=== PATIENT | male | born 2005 | race Caucasian/White ===

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

== ENCOUNTER 2025-05-12 10:06 | Emergency (ER) | payer BC, SELFPAY ==
[2025-05-12 10:07] VITALS: BP 113/87; PULSE 85; RESP 16; TEMP 35.7; O2SAT 100; BMI 22.2
--- NOTE | 2025-05-12 10:35 | RAD_ITS ---
EXAM: XR Chest, 2 Views CLINICAL INDICATION: COUGH TECHNIQUE: Frontal and lateral views of the chest. COMPARISON: No relevant prior studies available. FINDINGS: LUNGS AND PLEURAL SPACES: Unremarkable. No consolidation. No pneumothorax. HEART: Unremarkable. No cardiomegaly. MEDIASTINUM: Unremarkable. Normal mediastinal contour. BONES/JOINTS: Unremarkable. No acute fracture. RAD/Chest PA and Lateral IMPRESSION: No acute cardiopulmonary process. Reading Location: [facility]
--- NOTE | 2025-05-12 10:35 | RAD_ITS ---
EXAM: XR Chest, 2 Views CLINICAL INDICATION: COUGH TECHNIQUE: Frontal and lateral views of the chest. COMPARISON: No relevant prior studies available. FINDINGS: LUNGS AND PLEURAL SPACES: Unremarkable. No consolidation. No pneumothorax. HEART: Unremarkable. No cardiomegaly. MEDIASTINUM: Unremarkable. Normal mediastinal contour. BONES/JOINTS: Unremarkable. No acute fracture. RAD/Chest PA and Lateral IMPRESSION: No acute cardiopulmonary process. Reading Location: [facility]
--- NOTE | 2025-05-12 10:37 | ED.VIS.DYS ---
HPI History of Present Illness Chief Complaint: Cold Sx Narrative Narrative: Chief complaint and HPI: Cold-like symptoms. 19-year-old male with past medical history of asthma presents for evaluation of cold-like symptoms. Patient states over the past several days he has had a cough, runny nose, sore throat, body aches. States that he has been feeling some chest tightness that he gets with his asthma. States he has been using his albuterol inhaler however ran out of his albuterol for his nebulizers. Denies any fever, abdominal pain, nausea, vomiting. Has continued to use his maintenance inhaler. Review of systems: See HPI Medications: As listed on the chart Allergies: As listed on the chart PFSH: Per chart Vital signs: As listed on the chart. Reviewed. Physical exam: Gen: A&O x3, NAD Head: Normocephalic, atraumatic Eyes: No sclera icterus, conjunctiva clear, PERRL, EOMI ENT: TMs clear BL, moist mucous membranes, posterior oropharynx unremarkable, uvula midline, tonsils not enlarged, no tonsillar exudates Neck: Trachea midline, No JVD, Full ROM, No meningismus CV: RRR, no murmurs, no peripheral edema Resp: Lungs CTA BL, mild expiratory wheezing GI: Abd soft, non-distended, non-tender, no r/r/g Musc: Full ROM, no deformity Skin: Warm, dry, no rash Neuro: Alert, oriented, grossly intact, sensation intact Psych: Cooperative, appropriate mood and affect [facility] Medical History Asthma Home Medications ?Medication ?Instructions ?Recorded ?Last Taken ?Type albuterol sulfate 90 mcg/actuation 1 - 2 puff inhalation Q4H PRN PRN 01/07/20 Unknown History aerosol inhaler Wheezing albuterol sulfate 2.5 mg/3 mL 2.5 mg inhalation Q6H 10/03/21 Unknown History (0.083 %) solution for nebulization budesonide 0.25 mg/2 mL suspension 0.25 mg inhalation BID 10/03/21 Unknown History for nebulization (Pulmicort) cetirizine 10 mg tablet (Zyrtec) 10 mg PO DAILY 10/03/21 Unknown History Allergy/AdvReac Type Severity Reaction Status Date / Time No Known Allergies Allergy Verified 05/12/25 10:09 Surgical History History of tonsillectomy Social History Smoking Status: Current every day smoker tobacco type: e-cigarettes substance use type: does not use EXAM Physical Exam Const Vital Signs: 05/12/25 10:07 05/12/25 10:44 05/12/25 10:53 Temperature 96.3 F L Temperature Source Temporal Pulse Rate 85 74 Respiratory Rate 16 16 Respiratory Effort Normal Non-Labored Respiratory Pattern Normal Normal Blood Pressure 113/87 H Blood Pressure Mean 95 Pulse Ox 100 Oxygen Delivery Method Room Air MDM MDM MDM Narrative Medical decision making narrative: 19-year-old male with past medical history of asthma presents for evaluation of cold-like symptoms. Patient states over the past several days he has had a cough, runny nose, sore throat, body aches. States that he has been feeling some chest tightness that he gets with his asthma. States he has been using his albuterol inhaler however ran out of his albuterol for his nebulizers. Differential diagnosis includes but is not limited to viral illness, pneumonia, asthma exacerbation. On presentation, patient in no acute distress. Vitals are stable. Not hypoxic. I do not think any laboratory workup is needed at this time. Will order chest x-ray to assess for pneumonia. Albuterol and DuoNeb ordered with prednisone for symptoms. Chest x-ray was personally viewed interpreted by me, ED physician. No pneumonia, effusion, cardiomegaly, pneumothorax. Radiology in agreement. On reevaluation, patient's wheezing has improved. Patient symptoms are likely secondary to viral etiology and mild asthma exacerbation. Patient stable to discharge home. Will place on a prednisone course as well as prescribed albuterol nebulizers. Follow-up with PCP. He confirmed understand the plan. Return precautions explained. Impression: 1. Viral illness 2. Mild asthma exacerbation Radiography Diagnostic Testing: Clinical Impression(s) from Imaging Studies Chest X-Ray 05/12/25 10:35 IMPRESSION: No acute cardiopulmonary process. Reading Location: [facility] Discharge Plan Triage Chief Complaint: Cold Sx ED Provider: Johan Acevedo Dx/Rx/DC Orders Prescriptions: No Action albuterol sulfate 1 PUFF inhaler 1 - 2 puff inhalation Q4H PRN PRN (Reason: Wheezing) albuterol sulfate [Ventolin] 2.5 mg /3 mL (0.083 %) Solution For Nebulization 2.5 mg INHALATION Q6H cetirizine [Zyrtec] 10 mg Tablet 10 mg PO DAILY budesonide [Pulmicort] 0.25 mg/2 mL Suspension For Nebulization 0.25 mg INHALATION BID Primary Care Provider: Pooja Ding Referrals: Pooja Ding MD [Primary Care Provider] - Print Language: Macedonian
[2025-05-12] MEDS: Albuterol 2.5 MG/3 ML VIAL.NEB. INHALATION (10:48)
[2025-05-12 10:53] VITALS: PULSE 74; RESP 16
[2025-05-12 11:54] VITALS: BP 130/83; PULSE 89; RESP 20; TEMP 36.6; O2SAT 100
== END 2025-05-12 11:54 | disposition home or self-care (01) ==
PROVIDERS: Emergency Provider Surgery; PCP Pediatrics; Visit Provider Surgery
DX: J45.901 Unspecified asthma with (acute) exacerbation (principal); B34.9 Viral infection, unspecified; F17.290 Nicotine dependence, other tobacco product, uncomplicated; Z11.52 Encounter for screening for COVID-19; Z79.51 Long term (current) use of inhaled steroids; Z79.899 Other long term (current) drug therapy
CPT/HCPCS: 71046; 94640; 99282

== ENCOUNTER 2025-05-23 20:45 | Emergency (ER) | payer BC, SELFPAY ==
[2025-05-23 20:46] VITALS: BP 128/69; PULSE 125; RESP 16; TEMP 36.1; O2SAT 97; BMI 22.7
--- NOTE | 2025-05-23 21:19 | CT_ITS ---
PROCEDURE: SPINE CERVICAL WITHOUT CONTRAS 05/23/2025 REASON FOR EXAM: FALL TECHNIQUE: SPINE CERVICAL WITHOUT CONTRAS Coronal and Sagittal reconstruction series were provided. One or more dose reduction techniques were used (e.g., Automated exposure control, adjustment of the mA and/or kV according to patient size, use of iterative reconstruction technique. FINDINGS: Normal vertebral body height. Normal odontoid process. No compression deformity. No subluxation. No destructive osseous change. No facet malalignment. Pedicles and lamina maintained. CT/Spine Cervical without Contras IMPRESSION: CT cervical spine within normal limits Reading [facility]
--- NOTE | 2025-05-23 21:19 | CT_ITS ---
PROCEDURE: SINUS/FACIAL BONE 05/23/2025 REASON FOR EXAM: HIT FACE ON TREE, LEFT EYE SWELLING TECHNIQUE: SINUS/FACIAL BONE Coronal and Sagittal reconstruction series were provided. One or more dose reduction techniques were used (e.g., Automated exposure control, adjustment of the mA and/or kV according to patient size, use of iterative reconstruction technique). RADIATION DOSE SUMMARY: CTDlvol: 91 mGy DLP: 1901 mGycm FINDINGS: Normal mandible. Normal mandibular condyles. Normal nasal bones. Normal zygomatic arches. Medial and lateral orbital neri maintained. No sinonasal air-fluid levels. No mandibular or maxillary fracture. Orbital rim maintained. Orbital floor intact. Mild sphenoid and maxillary mucosal thickening. Right-sided mandibular molar dental disease. No orbital injury is noted. CT/Sinus/Facial Bone IMPRESSION: Negative for maxillofacial fracture. Specific attention to the left orbit. Reading Location[facility]
--- NOTE | 2025-05-23 21:19 | CT_ITS ---
PROCEDURE: BRAIN/HEAD WITHOUT CONTRAST 05/23/2025 REASON FOR EXAM: HIT HEAD TECHNIQUE: BRAIN/HEAD WITHOUT CONTRAST Coronal and Sagittal reconstruction series were provided. One or more dose reduction techniques were used (e.g., Automated exposure control, adjustment of the mA and/or kV according to patient size, use of iterative reconstruction technique. COMPARISON: 08/12/2018 FINDINGS: No intracranial mass, hemorrhage or edema. Sinuses are clear. Bony calvarium intact. CT/Brain/Head without Contrast IMPRESSION: No acute abnormality Reading Location: [facility]
--- NOTE | 2025-05-23 21:20 | EX.ED.DYSGE1 ---
HPI History of Present Illness Chief Complaint: Fall Narrative Narrative: Patient is 19-year-old male past medical history asthma who presented to the emergency department chief complaint of left-sided face pain. Patient states that earlier today around 3:30 in the afternoon he was in a tree when he slipped and fell and hit another portion of the tree on the way down and hit his left side of his face. He states that he does have a headache he tried take Tylenol and notes that he does have some swelling to the left eyebrow region. Patient notes that he has not vomited since the event. Patient states that his last tetanus shot was updated approximately 2 years ago. [facility] Medical History Asthma Home Medications ?Medication ?Instructions ?Recorded ?Last Taken ?Type albuterol sulfate 2.5 mg/3 mL 2.5 mg inhalation Q6H 10/03/21 Unknown History (0.083 %) solution for nebulization budesonide 0.25 mg/2 mL suspension 0.25 mg inhalation BID 10/03/21 Unknown History for nebulization (Pulmicort) cetirizine 10 mg tablet (Zyrtec) 10 mg PO DAILY 10/03/21 Unknown History albuterol sulfate 2.5 mg/3 mL 2.5 mg (3 mL) inhalation Q4H PRN 05/12/25 Unknown Rx (0.083 %) solution for nebulization #25 vials Allergy/AdvReac Type Severity Reaction Status Date / Time No Known Allergies Allergy Verified 05/23/25 20:46 Surgical History History of tonsillectomy Social History Smoking Status: Current every day smoker tobacco type: e-cigarettes substance use type: does not use ROS ROS ED ROS Narrative Constitutional: Complaint headache as noted above denies any lightheadedness or dizziness Eyes: Denies double vision Cardiovascular: Denies chest pain Respiratory: Denies shortness of breath Abdomen: Denies abdominal pain nausea vomit diarrhea : Denies any urinary symptoms Neurological: Denies any numbness, wheeze, tingling Musculoskeletal: States that he does have some right hip pain from hitting it as well but states that he has been able to walk without any difficulty Skin: Denies any rashes or lesions complains of some swelling to the left eye region EXAM Physical Exam Narrative Exam Narrative: General: Patient was lying in bed resting comfortably did not appear to be acute distress Head: Atraumatic, normocephalic Eyes, ears, nose, throat: PERRL bilaterally, EOMI bilateral, no conjunctival injection noted, no raccoon eyes no Torrez sign no nasal septal hematomas noted bilaterally Neck: Soft, supple, trachea midline no tenderness palpation midline cervical spine Cardiovascular: Patient tachycardic with a regular rhythm no murmurs gallops rubs noted Respiratory: Clear to auscultation bilaterally Abdomen: Soft, nondistended, nontender to palpation Musculoskeletal: All bony prominences palpated joints taken through full range of motion no pain elicited Extremities: +5/5 strength noted in the bilateral upper and lower extremities radial pulses +2/4 in the bilateral extremities, no pedal edema exam Neurological: Patient follow commands knew that he was at [facility] year is 2024 Skin: warm, dry, intact, patient has a superficial abrasion noted laterally to his left eyebrow with mild swelling Const Vital Signs: 05/23/25 20:46 05/23/25 21:15 Temperature 97.0 F L Temperature Source Temporal Pulse Rate 125 H Respiratory Rate 16 Respiratory Effort Normal Respiratory Depth Normal Respiratory Pattern Normal Blood Pressure 128/69 H Blood Pressure Mean 88 Pulse Ox 97 Oxygen Delivery Method Room Air Room Air MDM MDM MDM Narrative Medical decision making narrative: Patient is a 19-year-old male who presents to the emergency department with a chief complaint of falling out of a tree hitting his head on the tree with a headache. On the differential diagnosis includes but not limited to epidural hematoma, subdural hematoma,, musculoskeletal strain, facial fracture. Once workup is obtained reviewed he will be reevaluated. Patient CT head and brain without contrast showed no acute intracranial mass hemorrhage or edema. Patient CT cervical spine reviewed showed no acute fracture listhesis. Patient's CT face showed no maxillofacial fracture. On reevaluation patient is feeling better he like to go home at this point time. Patient was vies rotate Tylenol and ibuprofen [id number]. He is encouraged to follow-up with his doctor in outpatient setting return with worsening symptoms or any concerns. He is agreeable to plan all questions turns answered is discharged home in stable condition. Radiography Diagnostic Testing: Clinical Impression(s) from Imaging Studies Brain CT 05/23/25 21:19 IMPRESSION: No acute abnormality Reading Location[facility] Cervical Spine CT 05/23/25 21:19 IMPRESSION: CT cervical spine within normal limits Reading Location[facility] Facial/Sinus 05/23/25 21:19 IMPRESSION: Negative for maxillofacial fracture. Specific attention to the left orbit. Reading Location: [facility] Discharge Plan Triage Chief Complaint: Fall ED Provider: Aidan De La Rosa Dx/Rx/DC Orders Clinical Impression: Fall, Closed head injury, Eye swelling, left Prescriptions: No Action albuterol sulfate [Ventolin] 2.5 mg /3 mL (0.083 %) Solution For Nebulization 2.5 mg INHALATION Q6H cetirizine [Zyrtec] 10 mg Tablet 10 mg PO DAILY budesonide [Pulmicort] 0.25 mg/2 mL Suspension For Nebulization 0.25 mg INHALATION BID albuterol sulfate 2.5 mg /3 mL (0.083 %) solution for nebulization 2.5 mg inhalation Q4H PRN Qty: 25 0RF Rx Instructions: Use q4 hours and PRN for wheezing Primary Care Provider: Pooja Ding Referrals: Pooja Ding MD [Primary Care Provider] - Activity Restrictions/Additional Instructions: Your CT scans did not show any acute findings. Rotate Tylenol and ibuprofen [id number] when you do this you can take something every 3 hours. Max dose of Tylenol in 24 hours 4000 mg, max dose of ibuprofen 3200 mg in 24 hours. Print Language: Polish Disposition Disposition: Home, Self Care
--- OUTSIDE RECORDS SUMMARY | 2025-05-23 21:58 | XMS RPT_ITS | CCD ---
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 abscess is less likely for the following reason(s): laboratory studies not suggestive Disposition The patient was discharged. OTC Medications were advised: Tylenol/Motrin Procedures Allergies As of Date: 05/09/2025 Noted Allergy Reaction SEASONAL ALLERGIES 08/08/2012 14 - Other: See Comments Comments: Dust mites trees (December, January and February) grasses (February and March) SMOKE 07/11/2012 9 - Itching Date Reviewed: 05/09/2025 Reviewed by: Meredith Cobb LPN - Fully Assessed Reason for Visit: Sore Throat [200] Cmt: ST, cough and bodyaches x 3 days Primar (more content not included)... Normal [facility] STREP A MOLECULAR (POC)on Procedural Control Valid [facility] Strep A (POCT) Negative Negative [facility] Basic metabolic 2000 panelon 02-12-2025 Anion gap [Moles/Vol] 13 mmol/L Normal 8-[address] [facility] Comment on above: Order Comment: Speci men Type: BLOOD SPECIMENOrdering Facility: [facility] Address: [address] [place] [address] Performed By: #### L LATOSHA, 10859-9 ####[facility] [id number] [place] [address] [place] Calcium [Mass/Vol] 9.4 mg/dL Normal 8.5-10.2 [facility] Comment on above: Order Comment: Speci men Type: BLOOD SPECIMENOrdering Facility: [facility] Address: [address] [place] [address] Performed By: #### L LATOSHA, 26116-6 ####[facility] [id number] [place] [address] [place] Chloride [Moles/Vol] 102 mmol/L Normal 98-107 [facility] Comment on above: Order Comment: Speci men Type: BLOOD SPECIMENOrdering Facility: [facility] Address: [address] [place] [address] Performed By: #### L IPNF, 37434-4 ####[facility] [id number] [place] [address] [place] CO2 [Moles/Vol] 24 mmol/L Normal 22-[address] [facility] Comment on above: Order Comment: Speci men Type: BLOOD SPECIMENOrdering Facility: [facility] Address: [address] [place] [address] Performed By: #### L IPNF, 10257-8 ####[facility] LABIA [id number] [place] [id number] [place] Creatinine [Mass/Vol] 1.00 mg/dL Normal 0.73-1.[address] [facility] Comment on above: Order Comment: Speci men Type: BLOOD SPECIMENOrdering Facility: [facility] Address: [address] [place] [address] Performed By: #### L IPNF, 89399-2 ####[facility] LABIA [id number] [place] [address] [place] Creatinine and Glomerular filtration rate.predicted panel (S/P/Bld) 110 mL/min/1.73m??? Normal >=[address] [facility] Comment on above: Order Comment: Romy rosado Type: BLOOD SPECIMENOrdering Facility: [facility] Address: [address] [place] [address] Result Comment: Melony mated Glomerular Filtration Rate (eGFR) is calculated using the 2020 CKD-EPI creatinine equation. This equation utilizes serum creatinine, sex, and age as parameters. The creatinine assay has traceable calibration to isotope dilution-mass spectrometry. Refer to KDIGO guidelines for clinical interpretation. In patients with unstable renal function, e.g. those with acute kidney injury, the eGFR may not accurately reflect actual GFR. Performed By: #### L IPNF, 62122-7 ####[facility] LABIA [id number] [place] [id number] [place] Glucose [Mass/Vol] 88 mg/dL Normal 74-99 [facility] Comment on above: Order Comment: Hugoi men Type: BLOOD SPECIMENOrdering Facility: [facility] Address: [address] [place] [address] Result Comment: The [place] Diabetes Association (ADA) provides guidance for cutoff values for fasting glucose and random glucose. The ADA defines fasting as no caloric intake for at least 8 hours. Fasting plasma glucose results between 100 to 125 mg/dL indicate increased risk for diabetes (prediabetes). Fasting plasma glucose results greater than or equal to 126 mg/dL meet the criteria for diagnosis of diabetes. In the absence of unequivocal hyperglycemia, results should be confirmed by repeat testing. In a patient with classic symptoms of hyperglycemia or hyperglycemic crisis, random plasma glucose results greater than or equal to 200 mg/dL meet the criteria for diagnosis of diabetes. Reference: Standards of Medical Care in Diabetes 2016, [place] Diabetes Association. Diabetes Care. 2016.39(Suppl 1). Performed By: #### L IPNF, 93479-0 ####[facility]CLIA [id number] [place] [address] [place] Potassium [Moles/Vol] 4.5 mmol/L Normal 3.7-5.[address] [facility] Comment on above: Order Comment: Romy rosado Type: BLOOD SPECIMENOrdering Facility: [facility] Address: [address] [place] [address] Performed By: #### L IPNF, 91603-6 ####[facility]CLIA [id number] [place] [address] [place] Sodium [Moles/Vol] 139 mmol/L Normal 136-144 [facility] Comment on above: Order Comment: Romy rosado Type: BLOOD SPECIMENOrdering Facility: [facility] Address: [address] [place] [address] Performed By: #### L IPNF, 52092-5 ####[facility]CLIA [id number] [place] [address] [place] Urea nitrogen [Mass/Vol] 20 mg/dL Normal 9-[address] [facility] Comment on above: Order Comment: Romy rosado Type: BLOOD SPECIMENOrdering Facility: [facility] Address: [address] [place] [address] Performed By: #### L IPNF, 89306-3 ####[facility]CLIA [id number] [place] [id number] [place] CBC W Auto Differential pane l (Bld)on 02-12-2025 Basophils (Bld) [#/Vol] 0.05 10*3/uL Normal <0.[address] [facility] Comment on above: Order Comment: Speci men Type: BLOOD SPECIMEN [facility] Address: [address] [place] [address] Performed By: #### 5 7021-8 #### [facility] CLIA [id number] [address] [place] [address] [place] Basophils/100 WBC (Bld) 0.8 % Normal [facility] Comment on above: Order Comment: Speci men Type: BLOOD SPECIMEN [facility] Address: [address] [place] [address] Performed By: #### 5 7021-8 #### [facility] CLIA [id number] [address] [place] [address] [place] Differential cell count method Nom (Bld) Auto Normal [facility] Comment on above: Order Comment: Speci men Type: BLOOD SPECIMEN [facility] Address: [address] [place] [address] Performed By: #### 5 7021-8 #### [facility] CLIA [id number] [address] [place] [address] [place] Eosinophils (Bld) [#/Vol] 0.37 10*3/uL Normal <0.[address] [facility] Comment on above: Order Comment: Speci men Type: BLOOD SPECIMEN [facility] Address: [address] [place] [address] Performed By: #### 5 7021-8 #### [facility] CLIA [id number] [address] [place] [address] [place] Eosinophils/100 WBC (Bld) 5.6 % Normal [facility] Comment on above: Order Comment: Speci men Type: BLOOD SPECIMEN [facility] Address: [address] [place], [place] [address] Performed By: #### 5 7021-8 #### [facility] CLIA [id number] [address] [place] [address] [place] Erythrocyte distribution width (RBC) [Ratio] 12.7 % Normal 11.5-15.[address] [facility] Comment on above: Order Comment: Speci men Type: BLOOD SPECIMEN [facility] Address: [address] [place] [address] Performed By: #### 5 7021-8 #### [facility] CLIA [id number] [address] [place] [address] [place] Hematocrit (Bld) [Volume fraction] 44.1 % Normal 39.0-51.[address] [facility] Comment on above: Order Comment: Speci men Type: BLOOD SPECIMEN [facility] Address: [address] [place] [address] Performed By: #### 5 7021-8 #### [facility] CLIA [id number] [address] [place] [address] [place] Hemoglobin (Bld) [Mass/Vol] 14.6 g/dL Normal 13.0-17.[address] [facility] Comment on above: Order Comment: Speci men Type: BLOOD SPECIMEN [facility] Address: [address] [place] [address] Performed By: #### 5 7021-8 #### [facility] CLIA [id number] [address] [place] [address] [place] Immature granulocytes (Bld) [#/Vol] 10*3/uL Normal <0.[address] [facility] Comment on above: Order Comment: Speci men Type: BLOOD SPECIMEN [facility] Address: [address] [place] [address] Performed By: #### 5 7021-8 #### [facility] CLIA [id number] [address] [place] [address] [place] Immature granulocytes/100 WBC (Bld) 0.2 % Normal [facility] Comment on above: Order Comment: Speci men Type: BLOOD SPECIMEN [facility] Address: [address] [place] [address] Performed By: #### 5 7021-8 #### [facility] CLIA [id number] [address] [place] [address] [place] Lymphocytes (Bld) [#/Vol] 1.40 10*3/uL Normal 1.00-4.[address] [facility] Comment on above: Order Comment: Speci men Type: BLOOD SPECIMEN [facility] Address: [address] [place] [address] Performed By: #### 5 7021-8 #### [facility] CLIA [id number] [address] [place] [address] [place] Lymphocytes/100 WBC (Bld) 21.1 % Normal [facility] Comment on above: Order Comment: Speci men Type: BLOOD SPECIMEN [facility] Address: [address] [place] [address] Performed By: #### 5 7021-8 #### [facility] CLIA [id number] [address] [place] [address] [place] MCH (RBC) [Entitic mass] 29.0 pg Normal 26.0-34.[address] [facility] Comment on above: Order Comment: Speci men Type: BLOOD SPECIMEN [facility] Address: [address] [place] [address] Performed By: #### 5 7021-8 #### [facility] CLIA [id number] [address] [place] [address] [place] MCHC (RBC) [Mass/Vol] 33.1 g/dL Normal 30.5-36.[address] [facility] Comment on above: Order Comment: Speci men Type: BLOOD SPECIMEN [facility] Address: [address] [place] [address] Performed By: #### 5 7021-8 #### [facility] CLIA [id number] [address] [place] [address] [place] MCV (RBC) [Entitic vol] 87.5 fL Normal 80.0-100.[address] [facility] Comment on above: Order Comment: Speci men Type: BLOOD SPECIMEN [facility] Address: [address] [place] [address] Performed By: #### 5 7021-8 #### [facility] CLIA [id number] [address] [place] [address] [place] Monocytes (Bld) [#/Vol] 0.84 10*3/uL Normal <0.[address] [facility] Comment on above: Order Comment: Speci men Type: BLOOD SPECIMEN [facility] Address: [address] [place] [address] Performed By: #### 5 7021-8 #### [facility] CLIA [id number] [address] [place] [address] [place] Monocytes/100 WBC (Bld) 12.7 % Normal [facility] Comment on above: Order Comment: Speci men Type: BLOOD SPECIMEN [facility] Address: [address] [place] [address] Performed By: #### 5 7021-8 #### [facility] CLIA [id number] [address] [place] [address] [place] Neutrophils (Bld) [#/Vol] 3.97 10*3/uL Normal 1.45-7.[address] [facility] Comment on above: Order Comment: Speci men Type: BLOOD SPECIMEN [facility] Address: [address] [place] [address] Performed By: #### 5 7021-8 #### [facility] CLIA [id number] [address] [place] [address] [place] Neutrophils/100 WBC (Bld) 59.6 % Normal [facility] Comment on above: Order Comment: Speci men Type: BLOOD SPECIMEN [facility] Address: [address] [place] [address] Performed By: #### 5 7021-8 #### [facility] CLIA [id number] [address] [place] [address] [place] Nucleated RBC (Bld) [#/Vol] 10*3/uL Normal <0.[address] [facility] Comment on above: Order Comment: Speci men Type: BLOOD SPECIMEN [facility] Address: [address] [place] [address] Performed By: #### 5 7021-8 #### [facility] CLIA [id number] [address] [place] [address] [place] Nucleated RBC/100 WBC (Bld) [Ratio] 0.0 /100 WBC Normal [facility] Comment on above: Order Comment: Speci men Type: BLOOD SPECIMEN [facility] Address: [address] [place] [address] Performed By: #### 5 7021-8 #### [facility] CLIA [id number] [address] [place] [address] [place] Platelet mean volume (Bld) [Entitic vol] 10.4 fL Normal 9.0-12.[address] [facility] Comment on above: Order Comment: Speci men Type: BLOOD SPECIMEN [facility] Address: [address] [place] [address] Performed By: #### 5 7021-8 #### [facility] CLIA [id number] [address] [place] [address] [place] Platelets (Bld) [#/Vol] 238 10*3/uL Normal 150-[address] [facility] Comment on above: Order Comment: Speci men Type: BLOOD SPECIMEN [facility] Address: [address] [place] [address] Performed By: #### 5 7021-8 #### [facility] CLIA [id number] [address] [place] [address] [place] RBC (Bld) [#/Vol] 5.04 10*6/uL Normal 4.20-6.00 [facility] Comment on above: Order Comment: Speci men Type: BLOOD SPECIMEN [facility] Address: [address] [place] [address] Performed By: #### 5 7021-8 #### [facility] CLIA [id number] [address] [place] [address] [place] WBC (Bld) [#/Vol] 6.64 10*3/uL Normal 3.70-11.00 [facility] Comment on above: Order Comment: Speci men Type: BLOOD SPECIMEN [facility] Address: [address] [place] [address] Performed By: #### 5 7021-8 #### [facility] CLIA [id number] [address] [place] [address] [place] CNOVon 02-12-2025 CNOV Office Visit (FAMPWS ) -------- EUGENE SALVADOR ([id number]) 3 M Date Time Provider Department 02/12/25 7:00 AM DORI BLACK During your visit today, we recorded the following information about you: Temperature Pulse Respiration Blood pressure 97.7 degrees 88/minute 16/minute 96/66 Weight Height 68.5 kg 1.735 m Dori Black PA-C 02/12/2025 7:47 AM Signed Chief Complaint Patient presents with: Yearly Exam HPI Eugene Salvador is a 19 year old male who presents here today for physical. Patient with hx of asthma, allergies, depression-in remission, and those as below. Asthma: - Uses albuterol inhaler 3-4 times/week; effective in relieving wheezing. - Out of albuterol inhaler currently. - Previously used Flovent inhaler daily but discontinued due to perceived lack of efficacy. reports he was not using it consistently - Experiences wheezing with physical activity; unable to be active without inhaler. - No significant cough or dyspnea. - vapes nicotine and uses nicotine pouches. Depression: - History of depression related to family issues; previously on medication. - Reports resolution of depression symptoms. Past medical history, appointments, medications, allergies reviewed. Previous Medical History PAST MEDICAL HISTORY Diagnosis Date Asthma Multiple allergies dog saliva, cat dander, pine, smoke, scented candles Previous Surgical History PAST SURGICAL HISTORY Procedure Laterality Date KNEE SURGERY HX Left 06/2024 Family History FAMILY HISTORY Problem Relation Age of Onset Cancer Other Maternal side Hypertension Other Maternal side Cancer Other Paternal side Patient Allergies ALLERGIES Allergen Reactions Seasonal Allergies Other: See Comments Dust mites trees (December, January and February) grasses (February and March) Smoke Itching Current Medications Current Outpatient Medications on File Prior to Visit Medication Sig multivitamin tablet Take 1 tablet by mouth once daily. No current facility-administered medications on file prior to visit. Social History Social History Tobacco Use Smoking status: Never Passive exposure: Yes Smokeless tobacco: Never Tobacco comments: mom smokes outside Uses nicotine pouches (tobacco free) Vaping Use Vaping status: Some Days Substances: Nicotine Substance Use Topics Alcohol use: Not Currently Drug use: Never Review of Symptoms REVIEW OF SYSTEMS GENERAL: No weight loss, malaise or fevers HEENT: No changes in hearing or vision, no nose bleeds or other nasal problems NECK: Negative for lumps, goiter, pain and significant neck swelling RESPIRATORY: See HPI CARDIOVASCULAR: Negative for chest pain, leg swelling, hypertension, CHF or palpitations GI: Negative for abdominal discomfort, blood in stools or black stools, change in bowel habit, heart burn, nausea, vomiting : No history of dysuria, frequency or incontinence MUSCULOSKELETAL: Negative for joint pain or swelling, back pain or muscle pain SKIN: Negative for lesions, rash, and itching PSYCH: Negative for sleep disturbance, mood disorder and recent psychosocial stressors HEMATOLOGY/LYMPHOLOGY: Negative for prolonged bleeding, bruising easily or swollen nodes ENDOCRINE: Negative for cold or heat intolerance, polyuria, polydipsia and goiter NEURO: No history of headaches, syncope, paralysis, seizures or tremors SEE HPI EXAM: BP 96/66 (BP Site: Left Arm, BP Position: Sitting, BP Cuff Size: Large Adult) Pulse 88 Temp 36.5 ?C (97.7 ?F) Resp 16 Ht 173.5 cm (5' 8.31) Wt 68.5 kg (151 lb) SpO2 96% BMI 22.75 kg/m? General Appearance: Well appearing, alert, in no acute distress, well-hydrated, well nourished.. Skin: Skin color, texture, turgor normal, no suspicious rashes or lesions on exposed skin. Head: Normocephalic, no masses, lesions, tenderness or abnormalities. Eyes: Anicteric sclera. Pupils are equally round and reactive to light. Extraocular movements are intact. . Ears: External ears normal, canals clear, TMs pearly holloway. Nose/Sinuses: Nares normal, septum midline, mucosa normal, no drainage or sinus tenderness. Oropharynx: Lips, mucosa, and tongue normal, teeth and gums normal, oropharynx normal. Neck: Supple, no adenopathy; thyroid symmetric, normal size, no bruits. Lungs: Lungs clear to auscultation. No wheezing, rhonchi, rales.. Heart: RRR without murmur, gallop, or rubs. No ectopy. Abdomen: Normal abdominal exam, Abdomen soft, non-tender. Bowel sounds normal. No masses, organomegaly. Extremities: No deformities, edema, skin discoloration, clubbing or cyanosis. Good capillary refill. Peripheral Pulses: Normal. Neurologic: Gait normal. Reflexes normal and symmetric. Sensation grossly intact.. Health Maintenance List Hepatitis C Screening Never done HIV Screening Never done Influenza (more content not included)... Normal [facility] HCV Ab Ser Qlon 02-12-2025 HCV Ab Ql (S) Negative Normal Negative [facility] Comment on above: Order Comment: Speci men Type: BLOOD SPECIMENOrdering Facility: [facility] Address: [address] [place] [address] Result Comment: The result suggests no evidence of infection with Hepatitis C virus. Should recent infection be suspected, repeat testing may be considered 4-6 weeks after this draw. Performed By: #### 1 6128-1 ####[facility] [id number] [place] [address] [place] HIV 1+2 Ab IA Qlon 5 HIV 1 and 2 Ab IA.rapid Nom (S/P/Bld) Normal [facility] Comment on above: Order Comment: Speci men Type: BLOOD SPECIMENOrdering Facility: [facility] Address: [address] [place] [address] Result Comment: Test not indicated. Performed By: #### 3 1201-7 ####[facility] [id number] [address] [place] HIV 1+2 Ab+HIV1 p24 Ag IA Ql Non-Reactive Normal Nonreactive [facility] Comment on above: Order Comment: Speci men Type: BLOOD SPECIMENOrdering Facility: [facility] Address: [address] [place] [address] Performed By: #### 3 1201-7 ####[facility] [id number] HIV immunoassay testing algorithm interpretation (S/P/Bld) [Interp] Normal [facility] Comment on above: Order Comment: Speci men Type: BLOOD SPECIMENOrdering Facility: [facility] Address: [address] [place] [address] Result Comment: No e vidence of HIV-1 or HIV-2 infection. Should recent infection be suspected, repeat testing may be considered 2-3 weeks after this draw. [place] Rev. Code 3701.243(E): This information has been disclosed to you from confidential records protected from disclosure by state law. ???You shall make no further disclosure of this information without the specific, written, and informed release of the individual to whom it pertains or as otherwise permitted by state law. A general authorization for the release of medical or other information is not sufficient for the purpose of the release of HIV test results or diagnoses. Performed By: #### 3 1201-7 ####[facility] [id number] [address] HbA1c (Bld)on 02-12-2025 Average glucose Estimated from glycated hemoglobin (Bld) [Mass/Vol] 100 mg/dL Normal [facility] Comment on above: Order Comment: Speci men Type: BLOOD SPECIMENOrdering Facility: [facility] Address: [address] [place] [address] Result Comment: eAG: (Estimated average glucose) is a calculated value from HgbA1c and is [employer] representative [employer] of the average blood glucose level in the last 2-3 month period. Performed By: #### 5 5454-3 ####[facility] [id number] [address] HbA1c (Bld) [Mass fraction] 5.1 % Normal 4.3-5.[address] [facility] Comment on above: Order Comment: Speci [facility] Type: BLOOD SPECIMENOrdering Facility: [facility] Address: [address] [place] [address] Result Comment: [place] Diabetes Association guidelines indicate that patients with HgbA1c in the range 5.7-6.4% are at increased risk for development of diabetes, and intervention by lifestyle modification may be beneficial. HgbA1c greater or equal to 6.5% is considered diagnostic of diabetes. Performed By: #### 5 5454-3 ####[facility] [id number] [place] [id number] [facility] LIPID PANEL, NONFASTINGon Cholesterol [Mass/Vol] 160 mg/dL Normal <[address] [facility] Comment on above: Order Comment: Speci [facility] Type: BLOOD SPECIMENOrdering Facility: [facility] Address: [address] [place] [address] Result Comment: <200 mg/dL, Desirable 200-239 mg/dL, Borderline high >239 mg/dL, High Performed By: #### L IPNF, 21301-2 ####[facility] LABCLIA [id number] [address] HDL CHOLESTEROL, NF 50 mg/dL Normal >39 [facility] Comment on above: Order Comment: Romy men Type: BLOOD SPECIMENOrdering Facility: [facility] Address: [address] [place] [address] Result Comment: 40-5 9 mg/dL, Acceptable >59 mg/dL, High: Negative risk factor for coronary heart disease <40 mg/dL, Low: Positive risk factor for coronary heart disease Performed By: #### L IPNF, 88994-6 ####[facility] LABCLIA [id number] [address] LDL CHOLESTEROL, NF 100 mg/dL High <100 [facility] Comment on above: Order Comment: Romy [facility] Type: BLOOD SPECIMENOrdering Facility: [facility] Address: [address] [place] [address] Result Comment: <100 mg/dL, Optimal 100-129 mg/dL, Near optimal/above optimal 130-159 mg/dL, Borderline high 160-189 mg/dL, High >189 mg/dL, Very high Secondary prevention optimal LDL Cholesterol levels are recommended to be < 70 mg/dL Performed By: #### L IPNF, 35176-9 ####[facility] LABCLIA [id number] [address] OF [facility] LDL/HDL RATIO, NF 2.00 mg/dL Normal <2.54 [facility] Comment on above: Order Comment: Hugoi [facility] Type: BLOOD SPECIMENOrdering Facility: [facility] Address: [address] [place] [address] Result Comment: Refe rence: 1. National Cholesterol Education Program ATP III Guideline At-A-Glance Quick Desk Reference: National Heart, Lung, and Blood Allen. National Institutes of Health. 2001: NIH Publication No. 01-3305. 2. An International Atherosclerosis Society position paper: global recommendations for the management of dyslipidemia: executive summary, Atherosclerosis. 2014: 232(2):410-413. Cut Points from the Lipid Research Clinic's Prevalence Study for ages 20 to 24 years can be located in the following reference: Expert Panel on Integrated Guidelines for Cardiovascular Health and Risk Reduction in Children and Adolescents: National Heart, Lung and Blood Allen. Pediatrics. 2011:128(Suppl 5):X768-444. Performed By: #### L IPNF, 67441-3 ####[facility] LABCLIA [id number] [place] [address] [place] NON HDL CHOL, NF 110 mg/dL Normal <130 [facility] Comment on above: Order Comment: Romy rosado Type: BLOOD SPECIMENOrdering Facility: [facility] Address: [address] [place] [address] Result Comment: <130 mg/dL, Optimal 130-159 mg/dL, Near optimal/above optimal 160-189 mg/dL, Borderline high 190-219 mg/dL, High >219 mg/dL, Very high Secondary prevention optimal non HDL Cholesterol levels are recommended to be <100 mg/dL Performed By: #### L IPNF, 28844-9 ####[facility] LABCLIA [id number] [address] [place] T CHOL/HDL RATIO NF 3.20 mg/dL Normal <5.10 [facility] Comment on above: Order Comment: Romy rosado Type: BLOOD SPECIMENOrdering Facility: [facility] Address: [address] [place] [address] Performed By: #### L IPNF, 87518-7 ####[facility] LABCLIA [id number] [place] [id number] [place] TRIGLYCERIDES, NF 52 mg/dL Normal <150 [facility] Comment on above: Order Comment: Romy rosado Type: BLOOD SPECIMENOrdering Facility: [facility] Address: [address] [place] [address] Result Comment: <150 mg/dL, Normal 150-199 mg/dL, Borderline high 200-499 mg/dL, High >499 mg/dL, Very high Performed By: #### L IPNF, 81927-0 ####[facility] LABCLIA [id number] [place] [address] [place] VLDL CHOLESTEROL, NF 10 mg/dL Normal <30 [facility] Comment on above: Order Comment: Speci men Type: BLOOD SPECIMENOrdering Facility: [facility] Address: [address] [place] [address] Performed By: #### L IPNF, 92575-4 ####[facility] LABCLIA [id number] [address] OF [facility] CNPPing 10-31-2024 CNPN Telephone ([facility]) -------- EUGENE SALVADOR ([id number]) 3 M Date Time Provider Department 10/31/24 DOLORES SOUZA [facility] During your visit today, we recorded the following information about you: Dolores Souza PA 10/31/2024 7:11 AM Signed Patient is negative for COVID flu and RSV Karina Pruitt MA 10/31/2024 8:47 AM Signed Patient notified. Karina Pruitt MA Allergies As of Date: 10/31/2024 Noted Allergy Reaction SEASONAL ALLERGIES 08/08/2012 14 - Other: See Comments Comments: Dust mites trees (December, January and February) grasses (February and March) SMOKE 07/11/2012 9 - Itching Date Reviewed: 10/30/2024 Reviewed by: Karina Pruitt MA - Fully Assessed Reason for Visit: Results [95] Prescriptions as of 10/31/2024 - albuterol HFA (PROVENTIL HFA, VENTOLIN HFA) 90 mcg/actuation inhaler Inhale 2 Puffs as instructed every 6 hours as needed for wheezing/shortness of breath. - predniSONE (DELTASONE) 10 mg tablet Take 3 tablets by mouth once daily for 3 days, THEN 2 tablets once daily for 3 days, THEN 1 tablet once daily for 3 days. - benzonatate (TESSALON PERLES) 100 mg capsule Take 2 capsules by mouth three times a day as needed. - albuterol HFA (PROAIR HFA) 90 mcg/actuation inhaler Inhale 2 Puffs as instructed every 6 hours as needed. - albuterol HFA (PROAIR HFA) 90 mcg/actuation inhaler Inhale 2 Puffs as instructed every 4 hours as needed. - montelukast (SINGULAIR) 10 mg tablet Take 1 tablet by mouth daily at bedtime. - fluticasone (FLOVENT HFA) 44 mcg/actuation inhaler Inhale 2 Puffs as instructed twice daily. USE WITH SPACER. - rizatriptan (MAXALT) 10 mg tablet Take 1 tablet by mouth at first sign of migraine headache, may repeat in 2 hours if no improvement - cetirizine HCl (ZYRTEC) 10 mg chewable tablet Take 1 tablet by mouth once daily. - mometasone (ELOCON) 0.1 % cream Apply 1 application to affected area once daily. - clindamycin (CLEOCIN-T) 1 % gel Apply 1 application to affected area twice daily. - benzoyl peroxide (PANOXYL, DESQUAM-X, OXY-5) 5 % gel Apply 1 application to affected area once daily. - albuterol HFA 90 mcg/actuation inhaler Inhale 2 Puffs as instructed every 4 hours as needed (for cough, wheezing, chest tightness or shortness of breath. Use with spacer. ). - multivitamin tablet Take 1 tablet by mouth once daily. - Pedi MVI No.17 with Fluoride (MULTI-VITAMIN WITH FLUORIDE) 1 mg Chew 1 tablet once a day PO - albuterol 90 mcg/actuation Aero 2 puffs every 4 to 6 hours prn tight cough/wheezing - Polyethylene Glycol 3350 (MIRALAX) 17 gram/dose powder 1 capful once a day for constipation Problem List As Of Date 10/31/2024 Noted Resolved Asthma, moderate persistent [J45.40] 07/27/2011 Depression, major, recurrent, mild (HCC) [F33.0]02/17/2019 Acne vulgaris [L70.0] 02/17/2019 Extrinsic asthma [J45.909] 02/17/2019 Intrinsic atopic dermatitis [L20.84] 08/08/2019 Seasonal allergies [J30.2] 08/08/2019 Encounter Status:Closed by KARINA PRUITT on 10/31/[address] [facility] CNOVon 10-30-2024 CNOV Office Visit ([facility] ) -------- EUGENE SALVADOR ([id number]) 3 M Date Time Provider Department 10/30/24 4:00 PM VICKY GONZALES [facility] During your visit today, we recorded the following information about you: Temperature Pulse Respiration Blood pressure 99.1 degrees 110/minute 18/minute 118/70 Weight 68.2 kg Vicky Gonzales APRN.COURIER DELIVERY DRIVER 10/30/2024 4:38 PM Signed CC: Patient presents with: Cough: Chest congestion, fever, bodyaches, SOB x1 day HPI: Eugene Salvador is a 18 year old male who presents to the office with complaint of chest congestion, head congestion, cough, nonproductive, and fever for the past day. Symptoms are staying the same. Associated symptoms includes body aches, wheezing, and dyspnea. Denies nausea, vomiting , and diarrhea. Treatments tried include nothing so far. with no relief of symptoms. Sick contacts: unknown. History of asthma, frequent episodes of bronchitis, chronic bronchitis, bronchiectasis or COPD: Yes asthma Smoker: No Seasonal/environmental allergies: No The ROS is otherwise negative. The patient's pmh, medications, allergies, and past visits are reviewed. PHYSICAL EXAM: BP 118/70 Pulse 110 Temp 37.3 ?C (99.1 ?F) Resp 18 Wt 68.2 kg (150 lb 5.7 oz) SpO2 97% General appearance: alert, cooperative, pleasant, in no acute distress Head: Normocephalic Eyes: EOM's intact, conjunctiva pink and moist, no icterus, sclera white, non-injected Ears: Right ear: External ear/canal- Normal, TM - clear with good landmarks. Left ear: External ear/canal- Normal, TM - clear with good landmarks Oropharynx:moderate erythema, without exudates present Heart: Negative. RRR without obvious murmur, gallop, or rubs. No ectopy. Lungs: clear to auscultation, without rales or wheeze, good air exchange PAST MEDICAL HISTORY Diagnosis Date Asthma Multiple allergies dog saliva, cat dander, pine, smoke, scented candles PAST SURGICAL HISTORY Procedure Laterality Date NONE ALLERGIES Seasonal Allergies and Smoke MEDICATIONS benzonatate (TESSALON PERLES) 100 mg capsule Take 2 capsules by mouth three times a day as needed. albuterol HFA (PROAIR HFA) 90 mcg/actuation inhaler Inhale 2 Puffs as instructed every 6 hours as needed. albuterol HFA (PROAIR HFA) 90 mcg/actuation inhaler Inhale 2 Puffs as instructed every 4 hours as needed. montelukast (SINGULAIR) 10 mg tablet Take 1 tablet by mouth daily at bedtime. fluticasone (FLOVENT HFA) 44 mcg/actuation inhaler Inhale 2 Puffs as instructed twice daily. USE WITH SPACER. rizatriptan (MAXALT) 10 mg tablet Take 1 tablet by mouth at first sign of migraine headache, may repeat in 2 hours if no improvement cetirizine HCl (ZYRTEC) 10 mg chewable tablet Take 1 tablet by mouth once daily. mometasone (ELOCON) 0.1 % cream Apply 1 application to affected area once daily. clindamycin (CLEOCIN-T) 1 % gel Apply 1 application to affected area twice daily. benzoyl peroxide (PANOXYL, DESQUAM-X, OXY-5) 5 % gel Apply 1 application to affected area once daily. albuterol HFA 90 mcg/actuation inhaler Inhale 2 Puffs as instructed every 4 hours as needed (for cough, wheezing, chest tightness or shortness of breath. Use with spacer. ). multivitamin tablet Take 1 tablet by mouth once daily. Pedi MVI No.17 with Fluoride (MULTI-VITAMIN WITH FLUORIDE) 1 mg Chew 1 tablet once a day PO albuterol 90 mcg/actuation Aero 2 puffs every 4 to 6 hours prn tight cough/wheezing Polyethylene Glycol 3350 (MIRALAX) 17 gram/dose powder 1 capful once a day for constipation FAMILY HISTORY Problem Relation Age of Onset Cancer Other Maternal side Hypertension Other Maternal side Cancer Other Paternal side Social History Tobacco Use Smoking status: Never Passive exposure: Yes Smokeless tobacco: Never Tobacco comments: mom smokes outside ASSESSMENT/PLAN: 1. Sore throat - ICD9: 462, ICD10: J02.9 (primary diagnosis) - STREP A MOLECULAR (POC)-neg 2. Acute cough - ICD9: 786.2, ICD10: R05.1 - XR CHEST 2V FRONTAL/LAT * * * * Physician Interpretation * * * * EXAMINATION: CHEST RADIOGRAPH (2 VIEW FRONTAL AND LATERAL) CLINICAL HISTORY: Acute cough MQ: XC2_6 EXAM DATE/TIME: 10/30/2024 4:16 PM COMPARISON: Chest radiograph 08/21/2024 RESULT: Lines, tubes, and devices: None. Lungs and pleura: No consolidation. No lung mass. No pleural effusion. No pneumothorax. Cardiomediastinal silhouette: Normal cardiomediastinal silhouette. Bones and soft tissues: Unremarkable. IMPRESSION IMPRESSION: No acute radiographic abnormality. Sheet Metal Worker Helper: SON Transcribe Date/Time: Oct 30 2024 4:16P Dictated by : MARYAM CARRION MD - ALBUTEROL SULFATE HFA 90 MCG/ACTUATION AEROSOL INHALER - PREDNISONE 10 MG TABLET 3. URI, acute - ICD9: 465.9, ICD10: J06.9 - COVID AND INFLUENZA A/B AND RSV PCR, ROUTINE Prescription instructions revie (more content not included)... Normal [facility] COVID AND INFLUENZA A/B AND RSV PCR, ROUTINEon 10-30-2024 SARS-CoV-2 (COVID-19) RNA MIRELLA+probe Ql (Unsp spec) SARS-COV-2 (AGENT OF COVID-19) RNA: Not detected INFLUENZA A RNA: Not detected INFLUENZA B RNA: Not detected RESPIRATORY SYNCYTIAL VIRUS (RSV) RNA: Not detected Normal [facility] Comment on above: Performed By: #### C VFLRS ####[facility] LABCLIA [id number] [place] [id number] [place] STREP A MOLECULAR (POC)on Procedural Control Valid [facility] Strep A (POCT) Negative Negative [facility] XR CHEST 2V FRONTAL/LATon XR CHEST 2V FRONTAL/LAT * * *Final Report* * * DATE OF EXAM: Oct 30 2024 4:16PM WOX [id number] - XR CHEST 2V FRONTAL/LAT / PROCEDURE REASON: Acute cough * * * * Physician Interpretation * * * * EXAMINATION: CHEST RADIOGRAPH (2 VIEW FRONTAL and LATERAL) CLINICAL HISTORY: Acute cough MQ: XC2_6 EXAM DATE/TIME: 10/30/2024 4:16 PM COMPARISON: Chest radiograph 08/21/2024 RESULT: Lines, tubes, and devices: None. Lungs and pleura: No consolidation. No lung mass. No pleural effusion. No pneumothorax. Cardiomediastinal silhouette: Normal cardiomediastinal silhouette. Bones and soft tissues: Unremarkable. IMPRESSION: No acute radiographic abnormality. Sheet Metal Worker Helper: SON Transcribe Date/Time: Oct 30 2024 4:16P Dictated by : MARYAM CARRION MD This examination was interpreted and the report reviewed and electronically signed by: MARYAM CARRION MD on Oct 30 2024 4:16PM EST [id number] Normal [facility] XR Chest PA and Lateralon Radiology Study observation (narrative) [facility] IMPRESSION: No acute radiographic abnormality. Sheet Metal Worker Helper: SON Transcribe Date/Time: Oct 30 2024 4:16P Dictated by : MARYAM CARRION MD This examination was interpreted and the report reviewed and electronically signed by: MARYAM CARRION MD on Oct 30 2024 4:16PM EST DIVISION OF RADIOLOGY * * *Final Report* * * DATE OF EXAM: Oct 30 2024 4:16PM WOX [id number] - XR CHEST 2V FRONTAL/LAT / PROCEDURE REASON: Acute cough * * * * Physician Interpretation * * * * EXAMINATION: CHEST RADIOGRAPH (2 VIEW FRONTAL & LATERAL) CLINICAL HISTORY: Acute cough MQ: XC2_6 EXAM DATE/TIME: 10/30/2024 4:16 PM COMPARISON: Chest radiograph 08/21/2024 RESULT: Lines, tubes, and devices: None. Lungs and pleura: No consolidation. No lung mass. No pleural effusion. No pneumothorax. Cardiomediastinal silhouette: Normal cardiomediastinal silhouette. Bones and soft tissues: Unremarkable. DIVISION OF RADIOLOGY Provider, Grace Laureano - 10/30/2024 * * *Final Report* * * DATE OF EXAM: Oct 30 2024 4:16PM WOX [id number] - XR CHEST 2V FRONTAL/LAT / PROCEDURE REASON: Acute cough * * * * Physician Interpretation * * * * EXAMINATION: CHEST RADIOGRAPH (2 VIEW FRONTAL & LATERAL) CLINICAL HISTORY: Acute cough MQ: XC2_6 EXAM DATE/TIME: 10/30/2024 4:16 PM COMPARISON: Chest radiograph 08/21/2024 RESULT: Lines, tubes, and devices: None. Lungs and pleura: No consolidation. No lung mass. No pleural effusion. No pneumothorax. Cardiomediastinal silhouette: Normal cardiomediastinal silhouette. Bones and soft tissues: Unremarkable. IMPRESSION IMPRESSION: No acute radiographic abnormality. Sheet Metal Worker Helper: PSCB Transcribe Date/Time: Oct 30 2024 4:16P Dictated by : MARYAM CARRION MD This examination was interpreted and the report reviewed and electronically signed by: MARYAM CARRION MD on Oct 30 2024 4:16PM [facility] XR Chest PA and LateralOrder ed By: [facility] Provider on 10-30-2024 [facility] CNOVon 08-21-2024 CNOV Office Visit ([facility] ) -------- EUGENE SALVADOR ([id number]) 3 M Date Time Provider Department 08/21/24 12:30 PM KRYSTAL HENSON [facility] During your visit today, we recorded the following information about you: Temperature Pulse Respiration Blood pressure 97.2 degrees 92/minute 20/minute 115/70 Weight 69.5 kg Krystal Henson APRN.COURIER DELIVERY DRIVER 08/21/2024 1:36 PM Signed SUBJECTIVE: Eugene Salvador is a 18 year old male. Who presents today with cough hurts to cough SOB fatigue cogestion sore throat and ear pain for the last 4 days. He has not had a fever. He has take mucinex allergy medication. He is also using his allergy medication. He is having wheezing and the medication is helping. He has not been exposed to others who are sick. His cough is the worst symptom. HPI PAST MEDICAL HISTORY Diagnosis Date Asthma Multiple allergies dog saliva, cat dander, pine, smoke, scented candles FAMILY HISTORY Problem Relation Age of Onset Cancer Other Maternal side Hypertension Other Maternal side Cancer Other Paternal side Social History Tobacco Use Smoking status: Never Passive exposure: Yes Smokeless tobacco: Never Tobacco comments: mom smokes outside ALLERGIES Allergen Reactions Seasonal Allergies Other: See Comments Dust mites trees (December, January and February) grasses (February and March) Smoke Itching Current Outpatient Medications Medication Sig Dispense Refill albuterol HFA (PROAIR HFA) 90 mcg/actuation inhaler Inhale 2 Puffs as instructed every 4 hours as needed. 18 g 5 montelukast (SINGULAIR) 10 mg tablet Take 1 tablet by mouth daily at bedtime. 30 tablet 5 fluticasone (FLOVENT HFA) 44 mcg/actuation inhaler Inhale 2 Puffs as instructed twice daily. USE WITH SPACER. 10.6 g 5 rizatriptan (MAXALT) 10 mg tablet Take 1 tablet by mouth at first sign of migraine headache, may repeat in 2 hours if no improvement 12 tablet 1 multivitamin tablet Take 1 tablet by mouth once daily. 0 benzonatate (TESSALON PERLES) 100 mg capsule Take 2 capsules by mouth three times a day as needed. 30 capsule 0 albuterol HFA (PROAIR HFA) 90 mcg/actuation inhaler Inhale 2 Puffs as instructed every 6 hours as needed. 1 Each 0 cetirizine HCl (ZYRTEC) 10 mg chewable tablet Take 1 tablet by mouth once daily. 30 tablet 5 mometasone (ELOCON) 0.1 % cream Apply 1 application to affected area once daily. 30 g 2 clindamycin (CLEOCIN-T) 1 % gel Apply 1 application to affected area twice daily. 30 g 5 benzoyl peroxide (PANOXYL, DESQUAM-X, OXY-5) 5 % gel Apply 1 application to affected area once daily. 30 g 5 albuterol HFA 90 mcg/actuation inhaler Inhale 2 Puffs as instructed every 4 hours as needed (for cough, wheezing, chest tightness or shortness of breath. Use with spacer. ). 2 Inhaler 2 Pedi MVI No.17 with Fluoride (MULTI-VITAMIN WITH FLUORIDE) 1 mg Chew 1 tablet once a day PO 100 tablet 3 albuterol 90 mcg/actuation Aero 2 puffs every 4 to 6 hours prn tight cough/wheezing 1 Inhaler 1 Polyethylene Glycol 3350 (MIRALAX) 17 gram/dose powder 1 capful once a day for constipation 1 Bottle 1 No current facility-administered medications for this visit. OBJECTIVE: BP 115/70 Pulse 92 Temp 36.2 ?C (97.2 ?F) Resp 20 Wt 69.5 kg (153 lb 3.5 oz) SpO2 98% ROS all other systems reviewed and are negative Physical Exam Constitutional: Well developed, well nourished, NAD, AANDO X3. ENT: Head is atraumatic, airway patent, mucosal membranes moist. Cardiac: Heart tone normal rate and rhythm Respiratory: Breath sounds clear : no CVA tenderness MS: no swelling, tenderness or deformity in upper or lower extremities, no midline tenderness in cervical, thoracic or lumbar spine. Neuro: strength sensation and coordination intact. CN II-XII grossly intact, Skin: warm and dry with out rash, lesion or ecchymosis on exposed skin Psych: alert appropriate, speech clear MDM It was a pleasure to take care of Eugene Salvador today. A chest x-ray was obtained and this shows no acute cardiopulmonary process. Patient is an asthmatic he does have all of his inhalers at home and has been using those. I will give him a steroid today in concerns of an asthma flare. If he has worsening symptoms he will follow-up with his family physician or go to the emergency department if he is having trouble breathing. Patient has verbalized understanding of plan of care and is agreeable Patient will follow up with family physician. They may return to the Urgent Care or go to the ER for worsening symptoms or concerns. Patient verbalized understanding of plan of care and is in agreement. ASSESSMENT/PLAN: 1. Acute cough - ICD9: 786.2, ICD10: R05.1 (primary diagnosis) - XR CHEST 2V FRONTAL/LAT 2. Mild intermittent asthma, uncomplicated - ICD9: 493.90, ICD10: J45.20 - METHYLPREDNISOLONE 4 MG TABLETS IN A DOSE PACK 3. Fatigue, (more content not included)... Normal [facility] XR CHEST 2V FRONTAL/LATon XR CHEST 2V FRONTAL/LAT * * *Final Report* * * DATE OF EXAM: Aug 21 2024 12:57PM WOX [id number] - XR CHEST 2V FRONTAL/LAT / PROCEDURE REASON: Acute cough * * * * Physician Interpretation * * * * EXAMINATION: CHEST RADIOGRAPH (2 VIEW FRONTAL and LATERAL) CLINICAL HISTORY: Acute cough MQ: XC2_6 EXAM DATE/TIME: 08/21/2024 12:57 PM COMPARISON: No relevant prior studies available. RESULT: Lines, tubes, and devices: None. Lungs and pleura: No consolidation. No lung mass. No pleural effusion. No pneumothorax. Cardiomediastinal silhouette: Normal cardiomediastinal silhouette. Bones and soft tissues: Unremarkable. IMPRESSION: No acute radiographic abnormality. Sheet Metal Worker Helper: SON Transcribe Date/Time: Aug 21 2024 12:58P Dictated by : VIC BROUSSARD MD This examination was interpreted and the report reviewed and electronically signed by: VIC BROUSSARD MD on Aug 21 2024 12:58PM EST [id number] Normal [facility] XR Chest PA and Lateralon Radiology Study observation (narrative) [facility] IMPRESSION: No acute radiographic abnormality. Sheet Metal Worker Helper: PSCB Transcribe Date/Time: Aug 21 2024 12:58P Dictated by : VIC BROUSSARD MD This examination was interpreted and the report reviewed and electronically signed by: VIC BROUSSARD MD on Aug 21 2024 12:58PM EST DIVISION OF RADIOLOGY * * *Final Report* * * DATE OF EXAM: Aug 21 2024 12:57PM WOX [id number] - XR CHEST 2V FRONTAL/LAT / PROCEDURE REASON: Acute cough * * * * Physician Interpretation * * * * EXAMINATION: CHEST RADIOGRAPH (2 VIEW FRONTAL & LATERAL) CLINICAL HISTORY: Acute cough MQ: XC2_6 EXAM DATE/TIME: 08/21/2024 12:57 PM COMPARISON: No relevant prior studies available. RESULT: Lines, tubes, and devices: None. Lungs and pleura: No consolidation. No lung mass. No pleural effusion. No pneumothorax. Cardiomediastinal silhouette: Normal cardiomediastinal silhouette. Bones and soft tissues: Unremarkable. DIVISION [facility]IOLOGY [facility] * * *Final Report* * * DATE OF EXAM: Aug 21 2024 12:57PM WOX [id number] - XR CHEST 2V FRONTAL/LAT / PROCEDURE REASON: Acute cough * * * * Physician Interpretation * * * * EXAMINATION: CHEST RADIOGRAPH (2 VIEW FRONTAL & LATERAL) CLINICAL HISTORY: Acute cough MQ: XC2_6 EXAM DATE/TIME: 08/21/2024 12:57 PM COMPARISON: No relevant prior studies available. RESULT: Lines, tubes, and devices: None. Lungs and pleura: No consolidation. No lung mass. No pleural effusion. No pneumothorax. Cardiomediastinal silhouette: Normal cardiomediastinal silhouette. Bones and soft tissues: Unremarkable. IMPRESSION IMPRESSION: No acute radiographic abnormality. Sheet Metal Worker Helper: PSCB Transcribe Date/Time: Aug 21 2024 12:58P Dictated by : VIC BROUSSARD MD This examination was interpreted and the report reviewed and electronically signed by: VIC BROUSSARD MD on Aug 21 2024 12:58PM EST [facility] XR Chest PA and LateralOrder ed By: [facility] Provider on 08-21-2024 [facility] CBC + DIFFon 04-23-2024 Baso # [id number] Normal 0.00 - 0.10 [facility] Comment on above: Performed By: #### 2 33823 #### [facility],[address] [place] [address] Basophils/100 WBC (Bld) 0.3 % Normal 0.0 - 2.0 [facility] Comment on above: Performed By: #### 2 37309 #### [facility],[address] [place] [address] CBC + DIFF Normal [facility] Comment on above: Result Comment: CBC- COMPLETE BLOOD COUNT Performed By: #### 2 00192 #### [place] [address] EO # 0.14 x10EE3/UL Normal 0.00 - 0.50 [facility] Comment on above: Performed By: #### 2 35952 #### [place] [address] Eosinophils/100 WBC (Bld) 1.4 % Normal 0.0 - 7.0 [facility] Comment on above: Performed By: #### 2 48157 #### [place] [address] Erythrocyte distribution width (RBC) [Ratio] 13.2 % Normal 12.0 - 15.6 [facility] Comment on above: Performed By: #### 2 54021 #### [place] [address] Hematocrit (Bld) [Volume fraction] 41.8 % Normal 40.0 - 52.0 [facility] Comment on above: Performed By: #### 2 81300 #### [place] [address] Hemoglobin (Bld) [Mass/Vol] 14.4 g/dL Normal 13.0 - 17.5 [facility] Comment on above: Performed By: #### 2 62107 #### [place] [address] Lymph # 1.76 x10EE3/UL Normal 0.80 - 2.80 [facility] Comment on above: Performed By: #### 2 96302 #### [place] [address] Lymphocytes/100 WBC (Bld) 17.7 % Low 20.0 - 45.0 [facility] Comment on above: Performed By: #### 2 03016 #### [place] [address] MANUAL DIFF N/A Normal [facility] Comment on above: Performed By: #### 2 07954 #### [facility],[address] [place] [address] MCH (RBC) [Entitic mass] 30 pg Normal 27 - 33 [facility] Comment on above: Performed By: #### 2 69121 #### [facility],[address] [place] [address] MCHC 34 X10 3 Normal 32 - 36 [facility] Comment on above: Performed By: #### 2 93863 #### [facility],[address] [place] [address] MCV (RBC) [Entitic vol] 87 fL Normal 81 - 98 [facility] Comment on above: Performed By: #### 2 94007 #### [facility],[address] [place] [address] Harris # 1.01 x10EE3/UL High 0.20 - 1.00 [facility] Comment on above: Performed By: #### 2 85217 #### [facility],[address] [place] [address] MONOS % 10.2 % High 0.0 - 10.0 [facility] Comment on above: Performed By: #### 2 32904 #### [facility],[address] [place] [address] Morphology Lev (Bld) [Interp] N/A Normal [facility] Comment on above: Performed By: #### 2 12705 #### [place] [address] Neut # 7.03 x10EE3/UL Normal 1.50 - 7.10 [facility] Comment on above: Performed By: #### 2 77013 #### [place] [address] Neutrophils/100 WBC (Bld) 70.5 % Normal 46.0 - 76.0 [facility] Comment on above: Performed By: #### 2 98265 #### [facility],[address] [place] [address] PLATELET 206 x10EE3/UL Normal 150 - 450 [facility] Comment on above: Performed By: #### 2 06448 #### [facility],[address] [place] [address] Platelet mean volume (Bld) [Entitic vol] 8.1 fL Normal 6.4 - 10.5 [facility] Comment on above: Result Comment: AUTO MATED DIFFERENTIAL Performed By: #### 2 89030 #### [facility],[address] [place] [address] RBC 4.81 x 10EE6/UL Normal 4.50 - 6.00 [facility] Comment on above: Performed By: #### 2 09953 #### [facility],[address] [place], [place] [id number] WBC 10.0 x 10EE3/UL Normal 4.5 - 10.8 [facility] Comment on above: Performed By: #### 2 38163 #### [facility],[address] [place] [address] BMP with eGFRon 04-22-2024 AGE 18 years Normal [facility] Comment on above: Performed By: #### 2 98677 #### [facility],[address] [place] [address] Anion gap [Moles/Vol] 14 mmol/L Normal 10 - 20 [facility] Comment on above: Performed By: #### 2 37118 #### [place] [address] BMP with eGFR Normal [facility] Comment on above: Result Comment: BASI C METABOLIC PANEL Performed By: #### 2 52857 #### [facility],[address] [place] [address] Calcium [Mass/Vol] 9.0 mg/dL Normal 8.5 - 10.1 [facility] Comment on above: Performed By: #### 2 91070 #### [facility],[address] [place] [address] Chloride [Moles/Vol] 102 mmol/L Normal 98 - 107 [facility] Comment on above: Performed By: #### 2 82385 #### [facility],[address] [place], [place] [id number] CO2 [Moles/Vol] 24.7 mmol/L Normal 21.0 - 32.0 [facility] Comment on above: Performed By: #### 2 89708 #### [facility],[address] [place], [place] [id number] Creatinine [Mass/Vol] 0.98 mg/dL Normal 0.70 - 1.30 [facility] Comment on above: Performed By: #### 2 73151 #### [facility],[address] [place], [place] [address] GFR/1.73 sq M.predicted among non-blacks MDRD (S/P/Bld) [Vol rate/Area] mL/min/{1.73_m2} Normal 60 - 999 [facility] Comment on above: Performed By: #### 2 75216 #### [place] [id number] Result Comment: ACCO RDING TO THE NATIONAL KIDNEY DISEASE EDUCATION PROGRAM(NKDE), A NORMAL eGFR IS A VALUE GREATER THAN OR EQUAL TO 60 ML/MIN/1.73 SQ METERS. CHRONIC KIDNEY DISEASE: <60mL/MIN/1.73 SQ METERS KIDNEY FAILURE: <15mL/MIN/1.73 SQ METERS THIS TEST SHOULD ONLY BE USED FOR PATIENTS 18 YEARS OF AGE AND OLDER. Glucose [Mass/Vol] 150 mg/dL High 74 - 106 [facility] Comment on above: Performed By: #### 2 11188 #### [facility],[address] [place], [place] [id number] Potassium [Moles/Vol] 4.1 mmol/L Normal 3.5 - 5.1 [facility] Comment on above: Performed By: #### 2 35537 #### [facility],[address] [place] [address] Sodium [Moles/Vol] 137 mmol/L Normal 136 - 145 [facility] Comment on above: Performed By: #### 2 20917 #### [facility],[address] [place] [address] Urea nitrogen [Mass/Vol] 13 mg/dL Normal 7 - 18 [facility] Comment on above: Performed By: #### 2 94546 #### [facility],[address] [place] [address] CBC + DIFFon 04-22-2024 Baso # 0.03 x10EE3/UL Normal 0.00 - 0.10 [facility] Comment on above: Performed By: #### 2 64293 #### [facility],[address] [place] [address] Basophils/100 WBC (Bld) 0.2 % Normal 0.0 - 2.0 [facility] Comment on above: Performed By: #### 2 62891 #### [facility],[address] [place] [address] CBC + DIFF Normal [facility] Comment on above: Result Comment: CBC- COMPLETE BLOOD COUNT Performed By: #### 2 57804 #### [facility],[address] [place] [address] EO # 0.04 x10EE3/UL Normal 0.00 - 0.50 [facility] Comment on above: Performed By: #### 2 31117 #### [facility],[address] [place] [address] Eosinophils/100 WBC (Bld) 0.3 % Normal 0.0 - 7.0 [facility] Comment on above: Performed By: #### 2 76498 #### [place] [address],[place] [address] Erythrocyte distribution width (RBC) [Ratio] 13.7 % Normal 12.0 - 15.6 [facility] Comment on above: Performed By: #### 2 14323 #### [facility],[address] [place] [address] Hematocrit (Bld) [Volume fraction] 43.3 % Normal 40.0 - 52.0 [facility] Comment on above: Performed By: #### 2 66811 #### [facility],[address] [place] [address] Hemoglobin (Bld) [Mass/Vol] 15.0 g/dL Normal 13.0 - 17.5 [facility] Comment on above: Performed By: #### 2 27163 #### [facility],[address] [place] [address] Lymph # 0.51 x10EE3/UL Low 0.80 - 2.80 [facility] Comment on above: Performed By: #### 2 55876 #### [facility],[address] [place], [place] [address] Lymphocytes/100 WBC (Bld) 4.1 % Low 20.0 - 45.0 [facility] Comment on above: Performed By: #### 2 74455 #### [facility],[address] [place], [place] [address] MANUAL DIFF N/A Normal [facility] Comment on above: Performed By: #### 2 03889 #### [facility],[address] [place] [address] MCH (RBC) [Entitic mass] 30 pg Normal 27 - 33 [facility] Comment on above: Performed By: #### 2 69743 #### [facility],[address] [place] [address] MCHC 35 X10 3 Normal 32 - 36 [facility] Comment on above: Performed By: #### 2 12484 #### [facility],[address] [place] [address] MCV (RBC) [Entitic vol] 86 fL Normal 81 - 98 [facility] Comment on above: Performed By: #### 2 66130 #### [facility],[address] [place] [address] Harris # 0.49 x10EE3/UL Normal 0.20 - 1.00 [facility] Comment on above: Performed By: #### 2 77113 #### [facility],[address] [place] [address] MONOS % 3.9 % Normal 0.0 - 10.0 [facility] Comment on above: Performed By: #### 2 12742 #### [facility],[address] [place], [place] [address] Morphology Lev (Bld) [Interp] N/A Normal [facility] Comment on above: Performed By: #### 2 18276 #### [facility],[address] [place] [address] Neut # 11.54 x10EE3/UL High 1.50 - 7.10 [facility] Comment on above: Performed By: #### 2 39324 #### [facility],[address] [place] [address] Neutrophils/100 WBC (Bld) 91.6 % High 46.0 - 76.0 [facility] Comment on above: Performed By: #### 2 31882 #### [facility],[address] [place] [address] PLATELET 221 x10EE3/UL Normal 150 - 450 [facility] Comment on above: Performed By: #### 2 36652 #### [facility],[address] [place] [address] Platelet mean volume (Bld) [Entitic vol] 8.9 fL Normal 6.4 - 10.5 [facility] Comment on above: Result Comment: AUTO MATED DIFFERENTIAL Performed By: #### 2 44806 #### [facility],[address] [place] [address] RBC 5.07 x 10EE6/UL Normal 4.50 - 6.00 [facility] Comment on above: Performed By: #### 2 87076 #### [facility],[address] [place] [address] WBC 12.6 x 10EE3/UL High 4.5 - 10.8 [facility] Comment on above: Performed By: #### 2 96780 #### [facility],[address] [place] [address]64 KNEE 2 VIEWS LTon 04-22-2024 KNEE 2 VIEWS LT [address] [address] Patient: EUGENE SALVADORNaa Phone#: : 2005 Age: 18 Gender: M Pt. Type: ER Account: [id number] Location: [facility] Ordering: JEREMIAS HUGGINS Exam Date: 04/21/2024/13:29 Family Phys: Charge Code: [id number] Physician: Breckinridge Order #: [id number] Dose#: PROCEDURE: X-RAY KNEE LT 2 VIEWS COMPARISON: [facility], XR, KNEE COMPLETE LT MIN 4 VIEWS, 05/27/2019, 21:06. INDICATIONS: Foreign body. FINDINGS: BONES: Normal. No significant arthropathy or acute abnormality. SOFT TISSUES: 8.3 centimeter metallic foreign body consistent with nail is present anterior to the lateral femoral condyle. Relationship to the bone is difficult to determine with certainty however appears to lie in approximation to the anterior cortex. Bony architecture is otherwise intact. EFFUSION: None visible. OTHER: Negative. CONCLUSION: 1. Metallic foreign body anterior to the lateral femoral condyle likely immediately adjacent to the cortex, however, relationship to the bone is difficult to determine with certainty. Dictated by: Joyce Orr MD on 04/21/2024 at 14:02 Approved by: Joyce Orr MD on 04/21/2024 at 14:05 Normal [facility] OPERATIVE PROCEDURESon 04-22 OPERATIVE PROCEDURES [facility] OPERATIVE REPORT NAME ACCOUNT SEX AGE ADMIT DISCHARGE PT MED. RECORD# NUMBER DATE DATE TYPE MADELEINE [id number] [place] 18 04/21/24 María Garcia [id number] ROOM: 310 DATE OF : 2005 DICTATING PHYSICIAN: Zheng Wilcox DATE OF SURGERY: April 21, 2024 SURGEON: Zheng Wilcox MD SPORTS ADMINISTRATOR: None. ANESTHESIOLOGIST: Sid Wall CRNA ANESTHETIC: General, adductor canal nerve block. PREOPERATIVE DIAGNOSIS: Left knee nail gun injury, possible traumatic arthrotomy. POSTOPERATIVE DIAGNOSIS: Left knee nail gun injury, possible traumatic arthrotomy. OPERATION PERFORMED: Irrigation and debridement arthroscopically of left knee. COMPLICATIONS: ESTIMATED BLOOD LOSS: SPECIAL MEDICATIONS: IV vancomycin and IV Zosyn. INDICATIONS FOR SURGERY: The patient is a 18-year-old male who sustained a nail gun injury to the left knee region earlier today. He was seen and treated in the Emergency Room. Due to the concern of the nail position compared to his knee joint, suspected traumatic arthrotomy was very concerning. The patient and his family were explained the risks, benefits, and alternative procedures. They did wish to proceed with surgical irrigation and debridement of the knee. Please refer to the full dictated history and physical examination. FINDINGS: Findings did show what appeared to be a rent in the superolateral joint capsule near the area of concern. No specific loose bodies or abnormalities were noted in the joint otherwise. He did undergo arthroscopic irrigation and debridement of the knee. We did obtain a culture from the knee fluid prior to doing a formal irrigation and debridement. Infectious Disease has been consulted. Page 1 of 2 EUGENE SALVADOR Operative Report EUGENE SALVADOR : 2005 DESCRIPTION OF OPERATION: The patient was taken to the operating room and transferred to the OR table. He was given a general anesthetic. MARK hose and an SCD were placed on the nonoperative leg. A well-padded tourniquet was applied to the left upper thigh, which was not inflated. The left lower extremity was prepped, padded and draped in the usual sterile orthopedic fashion for the procedure. We began by making our lateral arthrotomy portal after appropriate time-out was performed. The bloody fluid that came out of his knee joint from this was cultured and sent as a specimen. We started in the suprapatellar pouch. We did note what appeared to be a hole in the capsule at the superolateral knee joint which was consistent with where the nail injury was. No specific abnormalities were noted in the joint otherwise. At this point, signs of the previous methylene blue procedure also were documented, and all of that fluid was thoroughly irrigated out of the wound as part of the procedure. We established our medial joint line portal with a needle followed by a knife, followed by a dull trocar taking me to the joint. We did a routine diagnostic video arthroscopy. No abnormality was noted at the patellofemoral joint otherwise. The medial and lateral gutters were normal other than as above. The ACL was intact. The medial and lateral menisci were probed and visualized. The medial and lateral joint compartment structures were visualized and probed without abnormality. We did place the scope in the posteromedial and posterolateral aspect of the knee. No loose bodies or pathology was noted. The knee was thoroughly irrigated with the help of an arthroscopic shaver as well. Light shaving was carried out at the site of the suspected arthrotomy. We fully dissected carefully with the scope, visualizing the anteromedial and anterolateral compartments to check for any signs of bone injury or pathology or loose bodies. None were identified otherwise. We irrigated 9 liters of saline through the knee, after which excess fluid was drained from the knee. The arthroscopic instruments were removed. We closed the portals with simple sutures. I did again clean the puncture site with Betadine and placed Xeroform over that site as well as the two portals. A sterile bandage of 4x4s, ABD and Kerlix was applied as well as an David wrap. He was to undergo a nerve block per Anesthesia. The case has been discussed with Dr. Renee. He will be placed on appropriate IV antibiotics pending cultures and most likely switched to oral antibiotics in 24-48 hours. Aspirin for DVT prevention. Dictated By: Zheng Wilcox MD 04/21/24 19:35 JOB #: [id number] Transcribed By: yane 04/22/24 06:51 Electronically signed by: E-SIGN DR. ZHENG WILCOX M.D. 04/22/24 12:35 Page 2 of 2 EUGENE SALVADOR Operative Report Normal [facility] CULTURE WOUND [MALA]on CULTURE WOUND [MALA] CULTURE WOUND [MALA] _WOUND CULTURE_ GO TO [employer] REPORTS AND ATTACHMENTS FOR SCANNED REPORT 04/30/24.1305.DNP.COMPLE TE Normal [facility] Comment on above: Performed By: #### 2 00429 #### [facility],[address] [place] [address] KNEE COMPLETE LT MIN 4 VIEWS on 04-21-2024 KNEE COMPLETE LT MIN 4 VIEWS [place] [address] Patient: EUGENE SALVADOR Phone#: : 2005 Age: 18 Gender: M Pt. Type: ER Account: [id number] Location: [facility] Ordering: ZHENG WILCOX Exam Date: 04/21/2024/16:26 Family Phys: Charge Code: [id number] Physician: Breckinridge Order #: [id number] Dose#: PROCEDURE: X-RAY KNEE LT COMPLETE 4 VIEWS COMPARISON: [facility], XR, KNEE 2 VIEWS LT, 04/21/2024, 13:29. INDICATIONS: Trauma. FINDINGS: BONES: Normal. No significant arthropathy or acute abnormality. SOFT TISSUES: Lucency anterior to the femoral is consistent with recent procedure and foreign body extraction. There is no evidence of residual foreign body. EFFUSION: None visible. OTHER: Negative. CONCLUSION: 1. There is no evidence of acute bone abnormality. Soft tissue air is consistent with recent foreign body extraction. Dictated by: Joyce Orr MD on 04/21/2024 at 16:57 Approved by: Joyce Orr MD on 04/21/2024 at 17:02 Normal [facility] INFLUENZA A&B MOLECULAR (POC )on 12-05-2023 Flu A (POCT) Positive Abnormal Negative [facility] Procedural Control Valid [facility] ECG COMPLETEon 09-04-2022 Atrial Rate 65 BPM [facility] Calculated P [place] 76 degrees [facility] Calculated R [place] 65 degrees [facility] Calculated T [place] 56 degrees [facility] P-R Interval 130 ms [facility] QRS Duration 82 ms [facility] QT Interval 376 ms [facility] QTC Calculation (Bazett) 391 ms [facility] Ventricular Rate 65 BPM [facility] STREP A MOLECULAR (POC)on Procedural Control Valid [facility] Strep A (POCT) Negative Negative [facility] EMERGENCY DEPARTMENT REPORTo n 08-15-2017 EMERGENCY DEPARTMENT REPORT [place], [place] [address]PNEOFP INFORMATION MANAGEMENTEMERGENCY DEPARTMENT REPORTPatient: EUGENE SALVADOR TARA D.O.[id number]/24/[birth year] MStatus: DEP ER EDDate of Service: 07/31/17DDENDUMThe patient was seen by myself and also Kelly York, nurse practitioner. I didexamine the child for the groin area with the rash. I do agree with the assessment and planof dry skin on the scrotum. Please see Kelly York's dictation. 08/15/17 1525 ROSEANN MELGAR D.O.cc: АННА AVELAR M.D.; ROSEANN PIMENTEL D.O. << Signature on File>> Reported By: ROSEANN PIMENTEL D.O. Signed By: ROSEANN PIMENTEL D.O.Tests performed at:[address] [phone] Normal [facility]2017 LYMETOTWB SEE SEPARATE REPORT [facility] Comment on above: Performed By: #### L 200.3001, L200.3190 ####ML - UH [id number] [place] [address] ED REPORTon 08-01-2017 ED REPORT [place], [place] [address]KDAMXZ INFORMATION MANAGEMENTEMERLAIRD HOSPITALCY DEPARTMENT REPORTPatient: EUGENE SALVADOR KATHY NP-C as dictated by KELLY LINO NP-[id number]/24/[birth year] MStatus: DEP ER EDDate of Service: 07/31/17CHIEF COMPLAINTSoreness and redness to his scrotal area.HISTORY OF PRESENT ILLNESSMom states that they were here about a month ago where [facility] where the radiologist could not rule out appendicitisthrough testing done here at [place]. She said he was sent [facility] to [facility] that night,transferred by squad. They basically monitored him overnight. They did some more studies ofhis appendix. They said that it was enlarged and thickened. They gave him a dose of sometype of IV antibiotic and sent him home to follow up with the chief of police. Apparently atthis same time that this all started the patient was somehow bit on his scrotum by a tickwhich was actually imbedded in his scrotum and they removed it when he was up [facility]. He had some red streaking going up his scrotum and the shaft of his penis atthe time which did resolve with the antibiotics that they also gave him for the enlargedappendix. The mom brings him in today because he is having a burning pain and some issueswith the skin on his scrotum. She states that she is really concerned about his appendixstill. She thinks that this is somehow related to either the appendix issue or the tickbite. She said that she was supposed to follow up with her chief of police for her child 3days after discharge from [facility] and she has called the chief of police's office andthey keep put her off, telling her that they cannot get her in, that they are overbookedand they will not be able to see him into August 24 when he had his regularly scheduledappointment for immunizations. The child denies any abdominal pain at this time. He deniesany nausea or vomiting. Denies any bowel or bladder issues. Really has no complaints otherthan soreness to his scrotal area.ALLERGIESHe has no known drug allergies.PAST SURGICAL HISTORYHe has no past surgical history.PAST MEDICAL HISTORYHe does have asthma.MEDICATIONSTakes Singulair and ProAir.PHYSICAL EXAMINATIONHis vitals are stable. This is a 11-year-old male who is alert and oriented x3,able to answer questions appropriate to his age, does defer to mom for a lot of questions.His head is normocephalic, atraumatic. HEENT is unremarkable. Lungs are clear.Respirations nonlabored. Heart rate and rhythm are regular. Abdomen is soft, nontender.He does have a couple of small palpable lymph nodes along his groin area. On examination ofthe skin, his scrotum does have some sloughing or flaking of skin. There is no drainage.There is no moisture to the skin at all. It looks like just dry skin peeling off of hisscrotum. There is no redness to it. There is no warmth and I do not see any type ofredness or streaking on the penis at all. He neurologically is intact and he has goodrange of motion, strength and perfusion to all extremities bilaterally and equally.Just for the sake of comforting mom a little bit, we did do some labs here on him today aCBC and a BMP and I also did a sedimentation rate on him. All of those came backcompletely negative, within normal limits. I also went ahead and did Lyme disease titerson him which I did explain to Mom would be sent out. I had Dr. Pimentel see the patient aswell. She agrees that this is probably just sloughing of skin from previous inflammatoryprocess that he had from the tick bite itself. We are going to, however, put him on somedoxycycline to help protect him from Lyme disease per Dr. Pimentel and I did talk to momabout using some ibuprofen for pain and just discussed some hygiene practices with thepatient making sure that he is practicing good hygiene and I also recommended that they tryusing either Desitin or possibly like some type of A&D ointment cream on his scrotum acouple times a day to help with some of that irritation that he is having. I did advisemom to try to get him in with the chief of police sooner than the if problems persist orshe can come back to the ER for any new or worsening symptoms.IMPRESSIONDry skin on scrotum. 08/02/17 1141 KELLY MALCOLMCcc: KELLY LINO; АННА AVELAR M.D. << Signature on File>> Reported By: KELLY LINO NET TRAINERJesus ManuelC Signed By: KELLY LINO NET TRAINER-CTests performed at:[address] [phone] [facility] BMPon 07-31-2017 Anion gap 14.7 mmol/L Low 15-22 [facility] Comment on above: Performed By: #### L 200.3001, L200.3190 ####ML - [id number] [place] [address] Calcium 9.2 mg/dL Normal 8.4-10.2 [facility] Comment on above: Performed By: #### L 200.3001, L200.3190 ####ML - [id number] [place] [address] 14042 Chloride 104 mmol/L Normal 98-107 [facility] Comment on above: Performed By: #### L 200.3001, L200.3190 ####ML - [id number] [place] [address]4063 CO2 25 mmol/L Normal 22-29 [facility] Comment on above: Performed By: #### L 200.3001, L200.3190 ####ML - VWVKUBYZFY[address] [place] [address] 45597 Creatinine 0.46 mg/dL Low 0.53-0.79 [facility] Comment on above: Performed By: #### L 200.3001, L200.3190 ####ML - AOUREMUKGC[address] [place] [address] 16507 eGFR (non-black) > 60 ml/Min/1.73m2 [facility] Comment on above: Performed By: #### L 200.3001, L200.3190 ####ML - JDZFTBRQME[address] [place] [address] 74571 Glucose mass conc 108 mg/dL High 60-100 [facility] Comment on above: Performed By: #### L 200.3001, L200.3190 ####ML - GPSTYBVORC[address] [place] [address] 32992 Potassium molar conc 3.7 mmol/L Normal 3.5-5.0 [facility] Comment on above: Performed By: #### L 200.3001, L200.3190 ####ML - SIRZMAPVXH469 [place] [address] Sodium 140 mmol/L Normal 135-145 [facility] Comment on above: Performed By: #### L 200.3001, L200.3190 ####ML - ONZHSWOGLT[address] [place] [address] 27506 Urea nitrogen 11 mg/dL Normal 5-18 [facility] Comment on above: Performed By: #### L 200.3001, L200.3190 ####ML - RKUSIOBIYX[address] [place] [address] 69528 CBCon 07-31-2017 Basophils Auto #/vol (Bld) 0.00 x10(3) Normal 0.00-0.30 [facility] Comment on above: Performed By: #### L 200.3001, L200.3190 ####ML - WFASPPGLZE[address] [place] [address] 61560 Basophils/100 WBC Auto (Bld) 0.5 % Normal 0-2 [facility] Comment on above: Performed By: #### L 200.3001, L200.3190 ####ML - LYMGXNJGDB[address] [place] [address] 85883 Eosinophils 0.40 x10(3) Normal 0.00-0.50 [facility] Comment on above: Performed By: #### L 200.3001, L200.3190 ####ML - XHDKNYHHGH[address] [place] [address] 63565 Eosinophils/100 leukocytes 8.2 % High 1-4 [facility] Comment on above: Performed By: #### L 200.3001, L200.3190 ####ML - RERJLJVVBH[address] [place] [address] 07128 Erythrocyte distribution width Auto Ratio (RBC) 13.6 % Normal 11.5-14.5 [facility] Comment on above: Performed By: #### L 200.3001, L200.3190 ####ML - BBAXYYTECL[address] [place] [address] 71186 Erythrocytes (RBC) 4.78 x10(6) Normal 4.00-5.40 [facility] Comment on above: Performed By: #### L 200.3001, L200.3190 ####ML - RAERQSGVUU172 [place] [address] Hematocrit (HCT) 38.9 % Normal 35-49 [facility] Comment on above: Performed By: #### L 200.3001, L200.3190 ####ML - PUEDMNFVBW330 [place] [address] Hemoglobin mass conc (Bld) 13.7 g/dL Normal 12-15.0 [facility] Comment on above: Performed By: #### L 200.3001, L200.3190 ####ML - LBWRFSXGIH[address] [place] [address] 30638 Lymphocytes 1.80 x10(3) Normal 1.00-7.20 [facility] Comment on above: Performed By: #### L 200.3001, L200.3190 ####ML - LXMQTFXSEF[address] [place] [address] 26794 Lymphocytes/100 leukocytes 34.0 % Normal 23-53 [facility] Comment on above: Performed By: #### L 200.3001, L200.3190 ####ML - HEJDFJHPCG[address] [place] [address] 19884 MCH 28.7 pg Normal 26-32 [facility] Comment on above: Performed By: #### L 200.3001, L200.3190 ####ML - VGYKHKFLSO024 [place] [address] MCHC mass conc (RBC) 35.3 g/dL Normal 32-36 [facility] Comment on above: Performed By: #### L 200.3001, L200.3190 ####ML - DHMYNUKYSQ[address] [place] [address] 75883 MCV 81.5 fL Normal 80-94 [facility] Comment on above: Performed By: #### L 200.3001, L200.3190 ####ML - BATWOBKQCG347[address] [place] [address] 46884 Monocytes 0.60 x10(3) Normal 0.10-1.50 [facility] Comment on above: Performed By: #### L 200.3001, L200.3190 ####ML - BNOYONVUBH310 [place] [address] Monocytes/100 leukocytes 10.7 % Normal 2-11 [facility] Comment on above: Performed By: #### L 200.3001, L200.3190 ####ML - GLUYBQAINO406 [place] [address] Neutrophils 2.50 x10(3) Normal 1.60-8.80 [facility] Comment on above: Performed By: #### L 200.3001, L200.3190 ####ML - NPGTZJHMDC331 [place] [address] Neutrophils/100 WBC Auto (Bld) 46.6 % Normal 35-65 [facility] Comment on above: Performed By: #### L 200.3001, L200.3190 ####ML - UGYXQRFJWS475 [place] [address] Platelet mean volume (PMV) 8.1 fL Normal 7.4-9.2 [facility] Comment on above: Performed By: #### L 200.3001, L200.3190 ####ML - LCFPWZWOVC540 [place] [address] Platelets 210 X10(3) Normal 150-450 [facility] Comment on above: Performed By: #### L 200.3001, L200.3190 ####ML - TEJCIOLRKG258 [place] [address] WBC (Leukocytes) 5.4 x10(3) Normal 4.5-13.5 [facility] Comment on above: Performed By: #### L 200.3001, L200.3190 ####ML - JNDSOSTMIO032 [place] [address] ESRon 07-31-2017 Erythrocyte sedimentation rate 2 mm/h Normal 0-15 [facility] Comment on above: Performed By: #### L 200.3001, L200.3190 ####ML - UH PVSZXFNHYI[address] [place] [address] UCon 07-31-2017 UC No Growth Normal [facility] Comment on above: Performed By: #### L 200.3001, L200.3190 ####ML - UH KZOAOGFYYQ[address] [place] [address] URINALYSISon 07-31-2017 Bilirubin Ql (U) Negative Normal NEGATIVE [facility] Comment on above: Order Comment: Sourc e: Clean Catch .. Y Performed By: #### L 200.3001, L200.3190 ####ML - UH VAHBKIZFDF[address] [place] [address] URINE APPEARANC CLEAR Normal CLEAR [facility] Comment on above: Order Comment: Sourc e: Clean Catch .. Y Performed By: #### L 200.3001, L200.3190 ####ML - UH MFTCSJXUSB[address] [place] [address] URINE KETONE Negative Normal NEGATIVE [facility] Comment on above: Order Comment: Sourc e: Clean Catch .. Y Performed By: #### L 200.3001, L200.3190 ####ML - UH JUVCKOXBLA[address] [place] [address] URINE SPECIFIC 1.015 Normal 1.001-1.035 [facility] Comment on above: Order Comment: Sourc e: Clean Catch .. Y Performed By: #### L 200.3001, L200.3190 ####ML - UH RPKTVFIRWA[address] [place] [address] URINE UROBILINO 0.2 EU/DL Normal 0.2-1.0 [facility] Comment on above: Order Comment: Sourc e: Clean Catch .. Y Performed By: #### L 200.3001, L200.3190 ####ML - UH VLESBOIHUA[address] [place] [address] Urine, color YELLOW Normal YELLOW [facility] Comment on above: Order Comment: Sourc e: Clean Catch .. Y Performed By: #### L 200.3001, L200.3190 ####ML - UH RRUUPOFJFX[address] [place] [address] Urine, glucose presence Negative Normal [facility] Comment on above: Order Comment: Sourc e: Clean Catch .. Y Performed By: #### L 200.3001, L200.3190 ####ML - UH KMIKXNDXEC[address] [place] [address] Urine, hemoglobin presence TRACE-INTACT Normal NEGATIVE [facility] Comment on above: Order Comment: Sourc e: Clean Catch .. Y Performed By: #### L 200.3001, L200.3190 ####ML - UH BMDZZSPZVE[address] [place] [address] Urine, leukocyte esterase presence Negative Normal NEGATIVE [facility] Comment on above: Order Comment: Sourc e: Clean Catch .. Y Performed By: #### L 200.3001, L200.3190 ####ML - UH YWDTBQMBLD[address] [place] [address] Urine, nitrite presence Negative [facility] Comment on above: Order Comment: Sourc e: Clean Catch .. Y Performed By: #### L 200.3001, L200.3190 ####ML - UH PGEVZSBYFB[address] [place] [address] Urine, pH 6.0 [pH] Normal 5.0-8.0 [facility] Comment on above: Order Comment: Sourc e: Clean Catch .. Y Performed By: #### L 200.3001, L200.3190 ####ML - UH TSOENDDKVV[address] [place] [address] Urine, protein presence Negative Normal [facility] Comment on above: Order Comment: Sourc e: Clean Catch .. Y Performed By: #### L 200.3001, L200.3190 ####ML - UH BTNDNFUDVY[address] [place] [address] URINE MICROSCOPon 07-31-2017 SQUAMOUS FEW Normal NEGATIVE [facility] Comment on above: Order Comment: Sourc e: Clean Catch .. Y Performed By: #### L 200.3001, L200.3190 ####ML - UH ERZPVJSOVC[address] [place] [address] Urine, bacteria in sediment TR Normal NEGATIVE [facility] Comment on above: Order Comment: Sourc e: Clean Catch .. Y Performed By: #### L 200.3001, L200.3190 ####ML - UH ZQIZTOUWZJ[address] [place] [address] Urine, erythrocytes 1-3 Normal 0-2 [facility] Comment on above: Order Comment: Sourc e: Clean Catch .. Y Performed By: #### L 200.3001, L200.3190 ####ML - UH BXCRACQELZ[address] [place] [address] Urine, leukocytes 1-3 Normal 0-5 [facility] Comment on above: Order Comment: Sourc e: Clean Catch .. Y Performed By: #### L 200.3001, L200.3190 ####ML - UH ZDXYGOQDIZ[address] [place] [address] Urine, mucus presence in sediment 1+ Normal NEGATIVE [facility] Comment on above: Order Comment: Sourc e: Clean Catch .. Y Performed By: #### L 200.3001, L200.3190 ####ML - UH UWSLPXFVNZ[address] [place] [address] EMERGENCY DEPARTMENT REPORTo n 07-14-2017 EMERGENCY DEPARTMENT REPORT [facility] [place], [place] [address]OQSBCU INFORMATION MANAGEMENTEMERGENCY DEPARTMENT REPORTPatient: EUGENE SALVADOR ELLEN K D.O.[id number][birth year] MStatus: DEP ER EDDate of Service: 07/12/17DDENDUMThis case was turned over to me by Dr. Allen with pending CT scan for the patient'schronic abdominal pain (the last 2-3 weeks). The patient on scan has a slightly prominentappendix with thickened neri. Thus the radiologist cannot exclude acute appendicitis. [facility] and the patient will be transferred there by[place]. He is pleasantly asleep at this time will be transferred in stable condition. Labsare stable as well.IMPRESSIONTRANSFER 07/14/17 0609 MAYANK KELLER D.O.cc: АННА AVELAR M.D.; MAYANK GARY D.O. << Signature on File>> Reported By: MAYANK GARY D.O. Signed By: MAYANK GARY D.O.Tests performed at:[address] [phone] Normal [facility] C-Reactive Proteinon 017 C reactive protein (CRP) mg/L Normal 0.0-1.0 [facility] Comment on above: Result Comment: CRP determinations in neonates should be interpreted withcaution. CRP may be elevated in circumstances not associatedwith inflammation (e.g. difficult delivery, pneumothorax). Inpremature neonates CRP levels may not rise to abnormal levelseven if sepsis is present; some speculate that immature liverfunction decreases the ability to generate a CRP response. Performed By: #### C RP ####[address] [phone] ED Provider Progress Noteon 07-13-2017 Manager Med Surg Authentication Interface Message Text Eugene SalvadorDOB: 2005Chief ComplaintPatient presents with Abdominal PainNo Known AllergiesDOS: 07/13/2017HPI Comments: This is a 11 year old [place]. Pt has had pelvic pain for the last 3 weeks.He describes it as constant 2/10 crampy pain that radiates to the epigastricregion. Moving aggravtes the pain. He has not identified relieving factors. Pttonight expereinced his abdominal pain againt, now at a 9/10. It has beenassociated with watery diarrhea for the last 3 days. Patient's last meal was6pm, last fluid was 10pm. In the OSH ED, OSH record shows appendix is 7mm incaliber, which could not exclude early appy. UA negative for UTI. CBC showed WBC7.5. Given ODT zofran, ibuprofen, and 874 mL NS.Px: asthmaSx: deniedAllergices: NKDAFamily: CRPS, cancer, materanl grandmother croshnSocial: denies second hand smoking exposure, UTD vaccine.The history is provided by the patient, the mother and a healthcare provider.Review of SystemsConstitutional: Negative for activity change, appetite change and fever.HENT: Negative for congestion and sore throat.Respiratory: Negative for cough.Cardiovascular: Negative for chest pain.Gastrointestinal: Positive for abdominal pain and diarrhea. Negative for nauseaand vomiting.Genitourinary: Negative for decreased urine volume, dysuria, enuresis, hematuriaand urgency.Musculoskeletal: Positive for back pain. Negative for neck pain.Skin: Negative for rash.Neurological: Negative for dizziness and syncope.Past Medical History:Diagnosis Date Uncomplicated asthmaNo past surgical history on file.Pediatric HistoryPatient Guardian Status Mother: Chewning,NicholeOther Topics Concern Not on fileSocial History Narrative No narrative on filePhysical ExamConstitutional: He appears well-developed and well-nourished. He is active. 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 No signs of injury.Nose: Nose normal. No nasal discharge.Mouth/Throat: Mucous membranes are moist. Dentition is normal. No dental caries.No tonsillar exudate. Oropharynx is clear. Pharynx is normal.Eyes: Conjunctivae and EOM are normal. Right eye exhibits no discharge. Left eyeexhibits no discharge.Neck: Normal range of motion. Neck supple. No rigidity.Cardiovascular: Normal rate, regular rhythm, S1 normal and S2 normal. Pulsesare palpable.Pulmonary/Chest : Effort normal and breath sounds normal. There is normal airentry. No stridor. No respiratory distress. Air movement is not decreased. Hehas no wheezes. He has no rhonchi. He has no rales. He exhibits no retraction.Abdominal: Soft. Bowel sounds are normal. He exhibits no distension and no mass.There is no hepatosplenomegaly. There is tenderness. There is no rebound and noguarding. No hernia.LLQ tenderness to palpation. No rebound tenderness. Negative psaos sign. Notenderness at mcburney's point.Musculoskeletal: Normal range of motion. He exhibits no edema, tenderness,deformity or signs of injury.Neurological: He is alert. No cranial nerve deficit.Skin: Skin is warm. Capillary refill takes less than 3 seconds. No petechiae, nopurpura and no rash noted. He is not diaphoretic. No cyanosis. No jaundice orpallor.Nursing note and vitals reviewed.ProceduresMDMNu mber of Diagnoses or Management OptionsED Course:Diagnosis' considered: UTI, appy, autoimmune disease, inflammatory diseaseLabs/Radiology:Co nsults: No orders of the defined types were placed in this encounter.Medical Record/Transferring Institution Record:Treatment/Reasses sment:Medical Decision MakingPt presents to the ED for appy ruleout, given CT findings of possible earlyappy. No white count present. History is inconsistent with an appendicitis.Physical exam has no mcburney point tenderness, maximal tenderness in LLQ. Ptdeclined pain medication. US will be obtained to r/o appy. CRP also will beobtained. Additionally history obtained showed that the patient had a tick biteon his L scrotum 9 days ago while he was at the Aunt's place - there has been shen on his testicle, appears to be streaking. Pt unsure of how long the tickwas on his skin and does not recall if it appeared well fed. Pt given one timedose of doxy. Test results were normal; CRP was < 0.5 and US also negative forappy. Family informed of negative result. Family given referral for GI. Familygiven return precautions. Family verbalize understanding, agree with plan andwas D/C home.Jeremias Caruso, MAXIMILIANOiagnosis to highest level of medical certainty/plan1. Abdominal pain2. DiarrheaPEM Fellow NoteI personally performed cadena portions of the history and physical examination ofthis patient and discussed the management plan with the resident. Nursing notesand vital signs have been reviewed. I reviewed the resident's note and agreewith the documented findings and plan of care, except as noted in following.Additions to the resident section of the note are noted in blue, withsubtractions noted with . Patient is a 11 y.o. who presents with 3 weeks of LLQabdominal pain. Seen at [facility] and received CT scan with read of appendixbeing at the borderline of abnormal (7mm) without significant secondary sign.They decided to send the patient to [facility] Main ED as the read can not excludeearly appendicitis. On exam, patient with more LLQ and suprapubic tenderness.No RLQ tenderness and negative psoas, obturator, and heel strike. CRP addedwhich was normal. US was obtained which demonstrates a normal sized,compressible, appendix with a slight amount of pelvic fluid and no significanthyperemia. This is a normal exam. Patient referred to GI for further workupand management of his chronic abdominal pain. At-home management instructionsgiven. Family expressed understanding of home management instructions andreturn precautions. Discharged home in stable condition.Kimberly Gonzalez, [facility] Emergency Medicine Fellow - PGY69/3:05 PM Normal [facility] ED REPORTon 07-13-2017 ED REPORT [facility] [place], [place] [id number] INFORMATION MANAGEMENTEMERGENCY DEPARTMENT REPORTPatient: EUGENE SALVADOR MARK N M.D. as dictated by KATLYN LARA, INA-[id number]/24/[birth year] MStatus: DEP ER EDDate of Service: 07/12/17CHIEF COMPLAINTAbdominal pain.HISTORY OF PRESENT ILLNESSMom states that it has been 2 or 3 weeks now that the patient has had abdominal pain. Saidhe complains about it almost daily. Says it is mostly lower abdominal area but does havesome mid upper abdominal pain as well. Said that he feels like when he stands up,everything kind of falls in his abdomen also states that he has nausea. He eats he feelslike he gets a lot of pressure to his upper abdomen. Said that he has vomited a couple oftimes. He has had a headache off and on for the last couple of weeks. Mom denies anyfevers that she knows of. He complains of some low back pain clear across his low back.When asked but he did not offer this information he says that his left testicle is a littlebit painful at times and his mom states over the last 2 weeks he has been incontinent ofurine three times and has had diarrhea for this whole 2 weeks. Mom says that he hasdecreased activity and he is pale. She said he is drinking fine. He is just not eatingvery well.PAST MEDICAL HISTORYHis past medical history is asthma.PAST SURGICAL HISTORYNone.SOCIAL HISTORYDenies any drug, alcohol, or tobacco use.ALLERGIESNo known drug allergies.IMMUNIZATIONSU p-to-date.MEDICATIONSDai ly medications he is an Aerospan inhaler, albuterol inhaler, and Singulair.PHYSICAL EXAMINATIONPhysical exam the patient's blood pressure 108/66, temperature 97.5, pulse 85, skibfyzedhqd02, SPO2 is 99% on room air. He rates his pain a 9 out of 10. He is a fairlywell-nourished, well-hydrated, well-developed 11-year-old male in no acute distressnontoxic appearing. Head is atraumatic, normocephalic. Neck is supple nontender. Nocervical lymphadenopathy. Skin color is pink. He is warm and dry. Cap refill less than 2seconds. No rashes, lesions, purpura, petechiae. He is alert and oriented x3. Breathsounds are clear respirations easy. Cardiac he has a regular rate and rhythm. Abdomen issoft, positive bowel sounds. He is mildly tender across his entire abdomen. No rigidity.No rebound tenderness definitely no peritoneal findings. When palpating his left testicleis descended. There is no erythema or swelling to this area. He states it is somewhattender to palpate but the patient seems pretty comfortable when I am palpating it. He hasa little bit of redness noted to the inferior aspect of his penis which he is not real sureif that is normal for him or not. It is certainly not extremely erythematous. It is just alight redness or actually pinkness different than his normal skin color to the rest of thepenis. There is no drainage to the penis.EMERGENCY DEPARTMENT COURSEWe gave the child some fluids 20 per kilo. His liver enzymes and lipase are unremarkable.His glucose is 103, BUN and creatinine 15 and 0.47. Sodium 139, potassium 3.8, evoabllz40, total CO2 is 26. Urinalysis is negative. White blood count is 7.5, H&H 13.9 and40.1, platelets 210. The patient was also given Zofran and ibuprofen and was feeling somebetter. Dr. Allen talked to mom at length about CT scan and she does wish to have thisdone. So we did order a CT scan with contrast. Those results are pending.IMPRESSION 07/16/17 1608 IRIS ALLEN M.D.cc: АННА AVELAR M.D.; JORGE ALLEN M.D. << Signature on File>> Reported By: JORGE ALLEN M.D. Signed By: JORGE ALLEN M.D.Tests performed at:[address] [phone] Normal [facility] EMERGENCY DEPARTMENT REPORTo n 07-13-2017 EMERGENCY DEPARTMENT REPORT [facility] [place], [place] [address]LAIWHD INFORMATION MANAGEMENTEMERGENCY DEPARTMENT REPORTPatient: EUGENE SALVADOR JORGE PARKER M.D.[id number]/24/[birth year] MStatus: DEP ER EDDate of Service: 07/12/17CHIEF COMPLAINTAbdominal pain.HISTORY OF PRESENT ILLNESSA 11-year-old white male presents with complaints of abdominal pain the last several weeks.He has had diarrhea three to five times per day. No stool or mucus. He has also lostcontinence of urine here during the night three times. This is new. He has had somedysuria. He has had some nausea without vomiting, somewhat of a decreased appetite. Hehas also complained of low back pain. He has had pain in his left testicle. The patienthad no other complaints. No history. The patient was seen with nurse practitioner. Nofever although mom states her thermometer was broke as far as the battery was concerned. Noevidence of any past history. He has had some headaches also some pain in his chest attimes when he was vomiting mom stated transiently. He did not vomit actually came close toit.ALLERGIESNo drug allergies.PAST MEDICAL HISTORYHistory of asthma has not been on prednisone recently.PHYSICAL EXAMINATIONThis is a well-appearing white male. He is smiling, pleasant. HEENT is normocephalic,atraumatic . Eyes and pupils: Grossly normal. Sclerae: Anicteric. Mucous membranes aremoist. Neck is supple. No meningismus or stridor. No difficulty swallowing or drooling.Lung sounds clear and equal. Heart regular rate and rhythm without murmur, rub, or gallop.Abdomen is soft. There is minimal tenderness to palpation diffusely. There is noguarding, rebound. The bowel sounds are normoactive. There is no mass or organomegaly.Examination of the genitalia and scrotum show no evidence of any hernia. There is noevidence of any varicocele or hydrocele. There is no evidence of any hernia. There wassome redness that the nurse practitioner had noticed of the underside of the penis by Ijust think it is how the skin is lying. There is no evidence of any cellulitis. It isnontender.EMERGENCY DEPARTMENT COURSEThe patient has above complaints. He has abdominal pain he has 2 weeks constant for about5-7 days. He has had diarrhea. He has had decreased appetite. He has a fairly benign exam,diffuse tenderness but he is smiling when I examine him. He does have some incontinence ofurine and some pain in his back a little less typical and some scrotal pain without anysignificant findings. The scrotum and testicles were completely normal. I do not thinkthat this is a testicular issue such as torsion. At this point we will obtain some labs.He will need a urine and stool culture. We will consider whether an imaging study is moreappropriate such as a CT scan.IMPRESSION 07/16/17 1608 JORGE RAMOS M.D.cc: АННА AVELAR M.D.; JORGE ALLEN M.D. << Signature on File>> Reported By: JORGE ALLEN M.D. Signed By: JORGE ALLEN M.D.Tests performed at:[address] [phone] Normal [facility] US ABDOMEN LIMITEDon 017 US ABDOMEN LIMITED FINAL REPORTEXAM: US ABDOMEN LIMITEDHISTORY: LLQ pain. Outside CT shows possible early appy. R/O appyTECHNIQUE: Right lower quadrant ultrasound performed with compression, andcolor Doppler.PRIORS: None.FINDINGS:Appendix: A normal appendix is identified in the right lower quadrant, measuring less than 7mm.Appendicolith: None evidentHyperemia: None evident.Compression: preservedFree fluid: None evidentAbscess: None evidentOther: There is minimal debris in the urinary bladder.IMPRESSION:A normal appendix is identified.Minimal debris in the urinary bladder.Signed by: Dr. ELICEO STERLING at 07/13/2017 05:35 Normal [facility] BMPon 07-12-2017 Anion gap 17.8 mmol/L Normal 15-22 [facility] Comment on above: Performed By: #### L 100.0010 ####ML - [id number] [place] [address] Calcium 9.7 mg/dL Normal 8.4-10.2 [facility] Comment on above: Performed By: #### L 100.0010 ####ML - [id number] [place] [address] Chloride 99 mmol/L Normal 98-107 [facility] Comment on above: Performed By: #### L 100.0010 ####ML - [id number] [place] [address] CO2 26 mmol/L Normal 22-29 [facility] Comment on above: Performed By: #### L 100.0010 ####ML - [id number] [place] [address] Creatinine 0.47 mg/dL Low 0.53-0.79 [facility] Comment on above: Performed By: #### L 100.0010 ####ML - HWZIYOAPQT782 [place] [address] eGFR (non-black) > 60 ml/Min/1.73m2 Normal [facility] Comment on above: Performed By: #### L 100.0010 ####ML - WYEMKQAAPL[address] [place] [address] Glucose mass conc 103 mg/dL High 60-100 [facility] Comment on above: Performed By: #### L 100.0010 ####ML - QSJEKPVIFG050 [place] [address] Potassium molar conc 3.8 mmol/L Normal 3.5-5.0 [facility] Comment on above: Performed By: #### L 100.0010 ####ML [facility] [id number] [place] [address] Sodium 139 mmol/L Normal 135-145 [facility] Comment on above: Performed By: #### L 100.0010 ####[address] [address] Urea nitrogen 15 mg/dL Normal 5-18 [facility] Comment on above: Performed By: #### L 100.0010 ####ML [address] [address] CBCon 07-12-2017 Basophils Auto #/vol (Bld) 0.00 x10(3) Normal 0.00-0.30 [facility] Comment on above: Performed By: #### L 200.0010 ####[address] [address] Basophils/100 WBC Auto (Bld) 0.6 % Normal 0-2 [facility] Comment on above: Performed By: #### L 200.0010 ####[address] [address] Eosinophils 0.40 x10(3) Normal 0.00-0.50 [facility] Comment on above: Performed By: #### L 200.0010 ####[address] [address] Eosinophils/100 leukocytes 5.7 % High 1-4 [facility] Comment on above: Performed By: #### L 200.0010 ####[address] [address] Erythrocyte distribution width Auto Ratio (RBC) 14.2 % Normal 11.5-14.5 [facility] Comment on above: Performed By: #### L 200.0010 ####[address] [address] Erythrocytes (RBC) 4.85 x10(6) Normal 4.00-5.40 [facility] Comment on above: Performed By: #### L 200.0010 ####[address] [address] Hematocrit (HCT) 40.1 % Normal 35-49 [facility] Comment on above: Performed By: #### L 200.0010 ####ML - SVDPFKKDRK727 [place] [address] Hemoglobin mass conc (Bld) 13.9 g/dL Normal 12-15.0 [facility] Comment on above: Performed By: #### L 200.0010 ####ML - JTBCPNUFGQ110 [place] [address] Lymphocytes 2.10 x10(3) Normal 1.00-7.20 [facility] Comment on above: Performed By: #### L 200.0010 ####ML - SWWFOBOCAV340 [place] [address] Lymphocytes/100 leukocytes 27.8 % Normal 23-53 [facility] Comment on above: Performed By: #### L 200.0010 ####ML - RDSIKUWZMO[address] [place] [address] MCH 28.7 pg Normal 26-32 [facility] Comment on above: Performed By: #### L 200.0010 ####ML - UH YTOPHKKYLO[address] [place] [address] MCHC mass conc (RBC) 34.6 g/dL Normal 32-36 [facility] Comment on above: Performed By: #### L 200.0010 ####ML - UAQTIWDLVA735 [place] [address] MCV 82.8 fL Normal 80-94 [facility] Comment on above: Performed By: #### L 200.0010 ####ML - TOFOSOMLHZ027 [place] [address] Monocytes 0.90 x10(3) Normal 0.10-1.50 [facility] Comment on above: Performed By: #### L 200.0010 ####ML - UH QKYXVCZEUE456 [place] [address] Monocytes/100 leukocytes 11.6 % High 2-11 [facility] Comment on above: Performed By: #### L 200.0010 ####ML - BZJYXJUENR639 [place] [address] Neutrophils 4.10 x10(3) Normal 1.60-8.80 [facility] Comment on above: Performed By: #### L 200.0010 ####ML - MTBGQNQMMZ246 [place] [address] Neutrophils/100 WBC Auto (Bld) 54.3 % Normal 35-65 [facility] Comment on above: Performed By: #### L 200.0010 ####ML - XZEEJHOZLU641 [place] [address] Platelet mean volume (PMV) 8.3 fL Normal 7.4-9.2 [facility] Comment on above: Performed By: #### L 200.0010 ####ML - LXBVDHQEXN738[address] [place] [address] Platelets 210 X10(3) Normal 150-450 [facility] Comment on above: Performed By: #### L 200.0010 ####ML - RFJBKGOAMP715 [place] [address] WBC (Leukocytes) 7.5 x10(3) Normal 4.5-13.5 [facility] Comment on above: Performed By: #### L 200.0010 ####ML - QXDIGWXWEN[address] [place] [address] ABD/PEL W CONTRASTon 06-29 CT ABD/PEL W CONTRAST [place] [address] [place], [place] [address]Jerf: EUGENE SALVADOR DPhys: JORGE ALLEN M.D.: 04 Age: 11 Sex: MAcct: [id number] Loc: EDExam Date: 07/12/17 Status: REG ERRadiology No.: [id number] Number: [id number] # [id number] CT / CT ABD/PEL W CONTRASTCT of the abdomen and pelvis with IV and oral contrastClinical indication: Abdominal pain, diarrhea. Incontinent at h.s.Comparison: NoneFindings: Included lung bases shows no infiltrate or pleural fluid. Heart sizeis normal. The liver, gallbladder, spleen, pancreas and adrenal glands arenormal. The kidneys are normal in size and show normal enhancement. There isno hydronephrosis. No renal or ureteral calculi are identified. Urinarybladder is normal. The aorta and inferior vena cava are normal in caliber andenhance normally. No adenopathy is seen.The stomach and small bowel are normal. The appendix is slightly prominent incaliber and the wall appears slightly thickened but there is noperiappendiceal inflammation visible. There is no abscess or free fluid. Thereis a relatively large amount of fecal material throughout the colon but noabnormal distention or colonic wall thickening is seen. Bones are intact.Impression: The appendix is slightly prominent in caliber measuring up to 7 mmand in some areas the appendiceal wall appears mildly thickened. However,there is no periappendiceal inflammation visible. Lack of inflammationadjacent to the appendix makes acute appendicitis unlikely, but early acuteappendicitis cannot be entirely excluded. Please correlate with clinical andlaboratory findings. A followup CT study may be helpful if there is furtherconcern.This exam was performed according to our departmental dose optimizationprogram, and includes the following measures where applicable: automatedexposure control, adjustment of the mAs and/or kVp according to patient sizeand/or exam, and an iterative reconstruction algorithm.Professional interpretation provided by [facility] [address].Thank you for this referral.< >Reported By: JARED OWUSU M.D.Signed In NovaPro By: JARED OWUSU M.D. << Signature on File>> Reported By: JARED OWUSU M.D. Signed By: JARED OWUSU M.D.Tests performed at:[address] [phone] Normal [facility] HEPATIC PANELon 07-12-2017 A:G RATIO 2.08 Normal 1.1-2.5 [facility] Comment on above: Order Comment: ADD O N Performed By: #### L 100.0030, L100.0350 ####ML - U[facility] BGVEPKQVMP422 [place] [address] Alanine aminotransferase (ALT) 13 U/L Normal 5-41 [facility] Comment on above: Order Comment: ADD O N Performed By: #### L 100.0030, L100.0350 ####ML - RUDKRBSNQR870 [place] [address] Albumin 4.8 g/dL Normal 3.8-5.4 [facility] Comment on above: Order Comment: ADD O N Performed By: #### L 100.0030, L100.0350 ####ML - NWPQXQHABM144 [place] [address] ALK. PHOS 301 U/L High 35-299 [facility] Comment on above: Order Comment: ADD O N Performed By: #### L 100.0030, L100.0350 ####ML - MCKTSEJGRO315 [place] [address] Aspartate aminotransferase (AST) 24 U/L Normal 5-40 [facility] Comment on above: Order Comment: ADD O N Performed By: #### L 100.0030, L100.0350 ####ML - UUUIULXRXB212 [place] [address] Bilirubin Ql (U) 0.5 mg/dL Normal 0.2-1.0 [facility] Comment on above: Order Comment: ADD O N Performed By: #### L 100.0030, L100.0350 ####ML - WUGKBTRMOQ734 [place] [address] DIRECT BILIRUBI <0.2 Normal 0.0-0.3 [facility] Comment on above: Order Comment: ADD O N Performed By: #### L 100.0030, L100.0350 ####ML - SCFSTVBAFB330 [place] [address] Globulin 2.3 g/dL Normal 1.5-4.5 [facility] Comment on above: Order Comment: ADD O N Performed By: #### L 100.0030, L100.0350 ####ML - U[facility] YPYSLAGQTB821 [place] [address] Protein 7.1 g/dL Normal 6.0-8.0 [facility] Comment on above: Order Comment: ADD O N Performed By: #### L 100.0030, L100.0350 ####ML - RUUAEQNTYX982 [place] [address] LIPASEon 07-12-2017 Lipase 17 U/L Normal 13-60 [facility] Comment on above: Order Comment: ADD O N Performed By: #### L 100.0030, L100.0350 ####ML - UH XLHCJVMJTN[address] [place] [address] LUMBAR LIMITED 2Von 07-12-20 17 LUMBAR LIMITED 2V [address] [address]Kpwa: EUGENE SALVADOR DPhys: KATLYN LARA NET TRAINER-CDOB: [birth year] Age: 11 Sex: MAcct: [id number] Loc: EDExam Date: 07/12/17 Status: REG ERRadiology No.: [id number] Number: [id number] # Type/[id number] RAD / LUMBAR LIMITED 2VLUMBAR SPINE AP, LATERAL, 3 viewsINDICATION: Lower back pain, incontinenceCOMPARISON: noneFINDINGS:Lumbar body height and alignment is normal. There is no disc space narrowing,degenerative change or spondylolysis. SI joints are symmetric andunremarkable. Mild spina bifida of S1 is not excluded.IMPRESSION:No acute findings.Professional interpretation provided by [facility] [address].Thank you for this referral.< >Reported By: WILLIAM SPARROW M.D.Signed In NovaPro By: WILLIAM SPARROW M.D. << Signature on File>> Reported By: WILLIAM SPARROW M.D. Signed By: WILLIAM SPARROW M.D.Tests performed at:[address] [phone] Normal [facility] UA W/C&Son 07-12-2017 Bilirubin Ql (U) Negative Normal NEGATIVE [facility] Comment on above: Order Comment: Sourc e: Clean Catch .. Y Performed By: #### L 200.3001, L200.3190 ####ML - U[facility] VWOQQNWPPC368 [place] [address] URINE APPEARANC CLEAR Normal CLEAR [facility] Comment on above: Order Comment: Sourc e: Clean Catch .. Y Performed By: #### L 200.3001, L200.3190 ####ML - U[facility] [id number] [place] [address] URINE KETONE Negative Normal NEGATIVE [facility] Comment on above: Order Comment: Sourc e: Clean Catch .. Y Performed By: #### L 200.3001, L200.3190 ####ML - U[facility] WRVWCPJEQB9[address] [place] [address] URINE SPECIFIC 1.020 Normal 1.001-1.035 [facility] Comment on above: Order Comment: Sourc e: Clean Catch .. Y Performed By: #### L 200.3001, L200.3190 ####ML - UH TOZYCJIQRT7[address] [place] [address] URINE UROBILINO 1.0 EU/DL Normal 0.2-1.0 [facility] Comment on above: Order Comment: Sourc e: Clean Catch .. Y Performed By: #### L 200.3001, L200.3190 ####ML - U[facility] IGBPYFLFGU[address] [place] [address] Urine, color YELLOW Normal YELLOW [facility] Comment on above: Order Comment: Sourc e: Clean Catch .. Y Performed By: #### L 200.3001, L200.3190 ####ML - UH YAKVTQIXCZ[address] [place] [address] Urine, glucose presence Negative Normal NEGATIVE [facility] Comment on above: Order Comment: Sourc e: Clean Catch .. Y Performed By: #### L 200.3001, L200.3190 ####ML - UH YASPZECFGX[address] [place] [address] Urine, hemoglobin presence Negative Normal NEGATIVE [facility] Comment on above: Order Comment: Sourc e: Clean Catch .. Y Performed By: #### L 200.3001, L200.3190 ####ML - UH BAHAYROFDV[address] [place] [address] Urine, leukocyte esterase presence Negative Normal NEGATIVE [facility] Comment on above: Order Comment: Sourc e: Clean Catch .. Y Performed By: #### L 200.3001, L200.3190 ####ML - UH CUGNXAOPUI[address] [place] [address] Urine, nitrite presence Negative Normal NEGATIVE [facility] Comment on above: Order Comment: Sourc e: Clean Catch .. Y Performed By: #### L 200.3001, L200.3190 ####ML - U[facility] EICDMDJVXU[address] [place] [address] Urine, pH 7.0 [pH] Normal 5.0-8.0 [facility] Comment on above: Order Comment: Sourc e: Clean Catch .. Y Performed By: #### L 200.3001, L200.3190 ####ML - U[facility] STOALFSWGM[address] [place] [address] Urine, protein presence TRACE Normal NEGATIVE [facility] Comment on above: Order Comment: Sourc e: Clean Catch .. Y Performed By: #### L 200.3001, L200.3190 ####ML - U[facility] UPHSAYOZHH[address] [place] [address] UCon 07-12-2017 UC No Growth Normal [facility] Comment on above: Performed By: #### M 120.0100 ####ML - UH XCFLGCXCXZ[address] [place] [address] URINE MICROSCOPon 07-12-2017 Urine, erythrocytes 1-3 Normal 0-2 [facility] Comment on above: Order Comment: Sourc e: Clean Catch .. Y Performed By: #### L 200.3001, L200.3190 ####ML - U[facility] VJSZNCJOCM[address] [place] [address] Urine, leukocytes 0 /uL Normal 0-5 [facility] Comment on above: Order Comment: Sourc e: Clean Catch .. Y Performed By: #### L 200.3001, L200.3190 ####ML - U[facility] WYKNRWMATV[address] [place] [address] Urine, mucus presence in sediment TR Normal NEGATIVE [facility] Comment on above: Order Comment: Sourc e: Clean Catch .. Y Performed By: #### L 200.3001, L200.3190 ####ML - U[facility] AUJNDXDUOI[address] [place] [address] Vital Signs Date Time Vital Sign Value Performing Clinician Facility 05-12-2025 11:54-0400 Body temperature 98 [degF] Dr. Pooja Ding MD Work Phone: 4(247)[phone] [place] [address] 05-12-2025 11:54-0400 Diastolic blood pressure 83 mm[Hg] Dr. Pooja Ding MD Work Phone: 5(311)[phone] [place] [address] 05-12-2025 11:54-0400 Heart rate 89 /min Dr. Pooja Ding MD Work Phone: 7(020)[phone] [place] [address] 05-12-2025 11:54-0400 Respiratory rate 20 /min Dr. Pooja Ding MD Work Phone: 2(878)[phone] [place] [address] 05-12-2025 11:54-0400 SaO2% (BldA) [Mass fraction] 100 % Dr. Pooja Ding MD Work Phone: 2(400)[phone] [place] [address] 05-12-2025 11:54-0400 Systolic blood pressure 130 mm[Hg] Dr. Pooja Ding MD Work Phone: 3(181)[phone] [place] [address] 05-12-2025 10:07-0400 Body height 177.[address] Pooja Ding MD Work Phone: 0(904)[phone] [place] [address] 05-12-2025 10:07-0400 Body mass index (BMI) [Ratio] 22.2 kg/m2 Dr. Pooja Ding MD Work Phone: 7(150)[phone] [place] [address] 05-12-2025 10:07-0400 Body weight 70.[address] Pooja Ding MD Work Phone: 9(916)[phone] [place] [address] 05-09-2025 15:04-0400 Body mass index (BMI) [Ratio] 23.05 kg/m2 Dolores ESPINOZA Work Phone: 8(372)[phone] [place] [address] 05-09-2025 15:04-0400 Body temperature 97.2 [degF] Dolores ESPINOZA Work Phone: 8(488)[phone] [place] [address] 05-09-2025 15:04-0400 Body weight 69.4 kg Krislyn Aberegg PA Work Phone: [facility] 05-09-2025 15:04-0400 Diastolic blood pressure 72 mm[Hg] Krislyn Aberegg PA Work Phone: [facility] 05-09-2025 15:04-0400 Heart rate 75 /min Krislyn Aberegg PA Work Phone: [facility] 05-09-2025 15:04-0400 Respiratory rate 16 /min Krislyn Aberegg PA Work Phone: [facility] 05-09-2025 15:04-0400 SaO2% (BldA) [Mass fraction] 99 % Krislyn Aberegg PA Work Phone: [facility] 05-09-2025 15:04-0400 Systolic blood pressure 110 mm[Hg] Krislyn Aberegg PA Work Phone: [facility] 02-12-2025 07:08-0400 Body height 173.5 cm Dori Black PA-C Work Phone: [facility] 02-12-2025 07:08-0400 Body mass index (BMI) [Ratio] 22.75 kg/m2 Dori Black PA-C Work Phone: [facility] 02-12-2025 07:08-0400 Body temperature 97.7 [degF] Dori Black PA-C Work Phone: [facility] 02-12-2025 07:08-0400 Body weight 68.49 kg Droi Black PA-C Work Phone: [facility] 02-12-2025 07:08-0400 Diastolic blood pressure 66 mm[Hg] Dori Black PA-C Work Phone: [facility] 02-12-2025 07:08-0400 Heart rate 88 /min Dori Black PA-C Work Phone: [facility] 02-12-2025 07:08-0400 Respiratory rate 16 /min Dori Black PA-C Work Phone: [facility] 02-12-2025 07:08-0400 SaO2% (BldA) [Mass fraction] 96 % Dori Black PA-C Work Phone: [facility] 02-12-2025 07:08-0400 Systolic blood pressure 96 mm[Hg] Dori Black PA-C Work Phone: [facility] 10-30-2024 15:52-0500 Body temperature 99.1 [degF] Vicky Gonzales APRN.COURIER DELIVERY DRIVER Work Phone: [facility] 10-30-2024 15:52-0500 Body weight 68.2 kg Vicky Gonzales APRN.COURIER DELIVERY DRIVER Work Phone: [facility] 10-30-2024 15:52-0500 Diastolic blood pressure 70 mm[Hg] Vicky Gonzales APRN.COURIER DELIVERY DRIVER Work Phone: [facility] 10-30-2024 15:52-0500 Heart rate 110 /min Vicky Gonzales APRN.COURIER DELIVERY DRIVER Work Phone: [facility] 10-30-2024 15:52-0500 Respiratory rate 18 /min Vicky Gonzales APRN.COURIER DELIVERY DRIVER Work Phone: [facility] 10-30-2024 15:52-0500 SaO2% (BldA) [Mass fraction] 97 % Vicky Gonzales APRN.COURIER DELIVERY DRIVER Work Phone: [facility] 10-30-2024 15:52-0500 Systolic blood pressure 118 mm[Hg] Vicky Gonzales APRN.COURIER DELIVERY DRIVER Work Phone: [facility] 08-21-2024 12:35-0400 Body temperature 97.2 [degF] Krystal Henson FRETTED INSTRUMENT INSPECTOR.COURIER DELIVERY DRIVER Work Phone: [facility] 08-21-2024 12:35-0400 Body weight 69.5 kg Krystal Henson FRETTED INSTRUMENT INSPECTOR.COURIER DELIVERY DRIVER Work Phone: [facility] 08-21-2024 12:35-0400 Diastolic blood pressure 70 mm[Hg] Krystal Multanier FRETTED INSTRUMENT INSPECTOR.COURIER DELIVERY DRIVER Work Phone: [facility] 08-21-2024 12:35-0400 Heart rate 92 /min Krystal Henson FRETTED INSTRUMENT INSPECTOR.COURIER DELIVERY DRIVER Work Phone: [facility] 08-21-2024 12:35-0400 Respiratory rate 20 /min Krystal Henson FRETTED INSTRUMENT INSPECTOR.COURIER DELIVERY DRIVER Work Phone: [facility] 08-21-2024 12:35-0400 SaO2% (BldA) [Mass fraction] 98 % Krystal Henson FRETTED INSTRUMENT INSPECTOR.COURIER DELIVERY DRIVER Work Phone: [facility] 08-21-2024 12:35-0400 Systolic blood pressure 115 mm[Hg] Krystal Multanier FRETTED INSTRUMENT INSPECTOR.COURIER DELIVERY DRIVER Work Phone: [facility] 12-05-2023 16:02-0500 Body temperature 99.39 [degF] Rupali Athy PA-C Work Phone: [facility] 12-05-2023 16:02-0500 Body weight 69.85 kg Rupali Athy PA-C Work Phone: [facility] 12-05-2023 16:02-0500 Diastolic blood pressure 78 mm[Hg] Rupali Athy PA-C Work Phone: [facility] 12-05-2023 16:02-0500 Heart rate 116 /min Rupali Athy PA-C Work Phone: [facility] 12-05-2023 16:02-0500 SaO2% (BldA) [Mass fraction] 97 % Rupali Athy PA-C Work Phone: [facility] 12-05-2023 16:02-0500 Systolic blood pressure 122 mm[Hg] Rupali Athy PA-C Work Phone: [facility] 10-16-2023 17:41-0500 Body height 177.8 cm [facility] 10-16-2023 17:41-0500 Body mass index (BMI) [Percentile] Per age and sex 49.8 % [facility] 10-16-2023 17:41-0500 Body mass index (BMI) [Ratio] 22.4 kg/m2 [facility] 10-16-2023 17:41-0500 Body temperature 98 [degF] [facility] 10-16-2023 17:41-0500 Body weight 71.07 kg [facility] 10-16-2023 17:41-0500 Diastolic blood pressure 52 mm[Hg] [facility] 10-16-2023 17:41-0500 Heart rate 86 /min [facility] 10-16-2023 17:41-0500 Respiratory rate 18 /min [facility] 10-16-2023 17:41-0500 SaO2% (BldA) [Mass fraction] 98 % [facility] 10-16-2023 17:41-0500 Systolic blood pressure 128 mm[Hg] [facility] 09-04-2022 08:53-0500 Body weight 67.22 kg Coco Yudith FRETTED INSTRUMENT INSPECTOR.COURIER DELIVERY DRIVER Work Phone: [facility] 09-04-2022 08:53-0500 Diastolic blood pressure 64 mm[Hg] Coco Yudith FRETTED INSTRUMENT INSPECTOR.COURIER DELIVERY DRIVER Work Phone: [facility] 09-04-2022 08:53-0500 Heart rate 75 /min Coco Yudith FRETTED INSTRUMENT INSPECTOR.COURIER DELIVERY DRIVER Work Phone: [facility] 09-04-2022 08:53-0500 SaO2% (BldA) [Mass fraction] 96 % Coco Yudith FRETTED INSTRUMENT INSPECTOR.COURIER DELIVERY DRIVER Work Phone: [facility] 09-04-2022 08:53-0500 Systolic blood pressure 104 mm[Hg] Coco Yudith FRETTED INSTRUMENT INSPECTOR.COURIER DELIVERY DRIVER Work Phone: [facility] 06-07-2022 12:34-0400 Body temperature 98.2 [degF] Tan Ortiz FRETTED INSTRUMENT INSPECTOR.COURIER DELIVERY DRIVER Work Phone: [facility] 06-07-2022 12:34-0400 Body weight 66.86 kg Tan Ortiz FRETTED INSTRUMENT INSPECTOR.COURIER DELIVERY DRIVER Work Phone: [facility] 06-07-2022 12:34-0400 Diastolic blood pressure 72 mm[Hg] Tan Ortiz FRETTED INSTRUMENT INSPECTOR.COURIER DELIVERY DRIVER Work Phone: [facility] 06-07-2022 12:34-0400 Heart rate 112 /min Tan Ortiz FRETTED INSTRUMENT INSPECTOR.COURIER DELIVERY DRIVER Work Phone: [facility] 06-07-2022 12:34-0400 Respiratory rate 20 /min Tan Ortiz FRETTED INSTRUMENT INSPECTOR.COURIER DELIVERY DRIVER Work Phone: [facility] 06-07-2022 12:34-0400 SaO2% (BldA) [Mass fraction] 98 % Tan Ortiz FRETTED INSTRUMENT INSPECTOR.COURIER DELIVERY DRIVER Work Phone: [facility] 06-07-2022 12:34-0400 Systolic blood pressure 112 mm[Hg] Tan Ortiz FRETTED INSTRUMENT INSPECTOR.COURIER DELIVERY DRIVER Work Phone: [facility] 03-23-2022 16:26-0400 Respiratory rate 16 /min [facility] Work Phone: 03-23-2022 14:45-0400 Body height 175.26 cm [facility] Work Phone: 03-23-2022 14:45-0400 Body mass index (BMI) [Ratio] 22.1 kg/m2 [facility] Work Phone: 03-23-2022 14:45-0400 Body temperature 98 [degF] [facility] Work Phone: 03-23-2022 14:45-0400 Body weight 68.03 kg [facility] Work Phone: 03-23-2022 14:45-0400 Diastolic blood pressure 66 mm[Hg] [facility] Work Phone: 03-23-2022 14:45-0400 Heart rate 85 /min [facility] Work Phone: 03-23-2022 14:45-0400 SaO2% (BldA) [Mass fraction] 99 % [facility] Work Phone: 03-23-2022 14:45-0400 Systolic blood pressure 116 mm[Hg] [facility] Work Phone: Encounters Encounter Date Encounter Type Care Provider Facility Start: 05-12-2025 End: 05-12-2025 Emergency department patient visit Dr. Pooja Ding MD Work Phone: -Emergency Department Work Phone: Start: 05-09-2025 End: 05-09-2025 ambulatory RENÉ BAKER Facility:[facility] Start: 05-09-2025 End: 05-09-2025 Patient encounter procedure Dolores ESPINOZA Work Phone: [facility] Comment on above: Sore throat (Primary Dx) Start: 02-13-2025 End: 02-13-2025 Follow-up encounter Dori Black PA-C Work Phone: [facility] [place] Comment on above: Results Start: 02-12-2025 End: 02-24-2025 Refill Dori Black PA-C Work Phone: [facility] [place] Comment on above: Med Change Request Start: 02-12-2025 Encounter for genera l adult medical examination without abnormal findings DORI BLACK 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); Moderate persistent asthma without complication (HCC); Major depression in remission; Screening for diabetes mellitus; Encounter for lipid screening for cardiovascular disease; Encounter for immunization; Need for hepatitis C screening test; Screening for HIV (human immunodeficiency virus); Personal history of nicotine dependence Start: 02-12-2025 End: 02-12-2025 Patient encounter status Dori Black PA-C Work Phone: [facility] Work Phone: Start: 02-12-2025 End: 02-12-2025 ambulatory DORI BLACK Facility:[facility] Start: 01-24-2025 End: 01-26-2025 Refill Pooja Rees MD Work Phone: [facility] Comment on above: Refill Request Start: 10-31-2024 End: 10-31-2024 Telephone encounter Dolores ESPINOZA Work Phone: [facility] Comment on above: Results Start: 10-30-2024 End: 10-30-2024 Subsequent hospital visit by physician [facility] Work Phone: Radiology Comment on above: Acute cough [R05.1] Start: 10-30-2024 End: 10-30-2024 ambulatory RENÉ Naldo KIMEY Facility:[facility] Start: 10-30-2024 End: 10-30-2024 Patient encounter procedure Vicky Gonzales APRN.CNP Work Phone: [facility] Comment on above: Sore throat (Primary Dx); Acute cough; URI, acute Start: 08-21-2024 End: 08-21-2024 Subsequent hospital visit by physician [facility] Work Phone: Radiology Comment on above: Acute cough [R05.1] Start: 08-21-2024 End: 08-21-2024 ambulatory SELF Facility:[facility] Start: 08-21-2024 End: 08-21-2024 Office outpatient visit 25 minutes Krystal Henson APRN.COURIER DELIVERY DRIVER Work Phone: [facility] Comment on above: Acute cough (Primary Dx); Mild intermittent asthma, uncomplicated; Fatigue, unspecified type Start: 04-21-2024 End: 04-23-2024 Evaluation and management of inpatient DOCTOR ON [facility] Start: 12-05-2023 End: 12-05-2023 Patient encounter procedure Rupali Duron PA-C Work Phone: [facility] Comment on above: Influenza A (Primary Dx) Start: 10-16-2023 End: 10-16-2023 Emergency department patient visit [facility] Work Phone: Start: 09-30-2023 Refill Coco gates FRETTED INSTRUMENT INSPECTOR.COURIER DELIVERY DRIVER Work Phone: [facility] Comment on above: Refill Request Start: 11-02-2022 Telephone encounter Coco Brand FRETTED INSTRUMENT INSPECTOR.COURIER DELIVERY DRIVER Work Phone: [facility] Comment on above: Results Start: 09-08-2022 Telephone encounter Coco Brand FRETTED INSTRUMENT INSPECTOR.COURIER DELIVERY DRIVER Work Phone: [facility] Comment on above: Results Start: 09-04-2022 End: 09-04-2022 Patient encounter procedure Coco Zurita FRETTED INSTRUMENT INSPECTOR.COURIER DELIVERY DRIVER Work Phone: [facility] Comment on above: Syncope, unspecified syncope type (Primary Dx); Palpitations; Diaphoresis; Migraine with aura, not intractable, without status migrainosus; Moderate persistent asthma without complication; History of asthma Start: 08-07-2022 Refill Pooja carl MD Work Phone: [facility] Comment on above: Refill Request Start: 06-07-2022 End: 06-07-2022 Patient encounter procedure Tan Ortiz FRETTED INSTRUMENT INSPECTOR.COURIER DELIVERY DRIVER Work Phone: [facility] Comment on above: URI, acute (Primary Dx); Sore throat; History of asthma Start: 03-23-2022 End: 03-23-2022 Emergency department patient visit [facility] Start: 07-31-2017 End: 07-31-2017 Emergency department patient visit KELLY LINO Facility:[facility] Start: 07-13-2017 End: 07-13-2017 Emergency department patient visit [facility] Start: 07-12-2017 End: 07-13-2017 Emergency department patient visit MAYANK GARY Facility:[facility] Procedures Date Procedure Procedure Detail Performing Clinician Start: 05-12-2025 X-ray of chest, PA a nd lateral views Dr. Pooja Ding MD Work Phone: Start: 05-09-2025 Iadna streptococcus group a amplified probe tq Dolores ESPINOZA Work Phone: Start: 10-30-2024 Radiologic exam ches t 2 views Vicky Ryan FRETTED INSTRUMENT INSPECTOR.COURIER DELIVERY DRIVER Work Phone: Start: 10-30-2024 STREP A MOLECULAR (POC) Claribeldevin Starr FRETTED INSTRUMENT INSPECTOR.COURIER DELIVERY DRIVER Work Phone: Start: 08-21-2024 Radiologic exam ches t 2 views Krystal Henson FRETTED INSTRUMENT INSPECTOR.COURIER DELIVERY DRIVER Work Phone: Start: 04-21-2024 Irrigation of Joints using Irrigating Substance, Percutaneous Endoscopic Approach DOCTOR NO Start: 12-05-2023 INFLUENZA A&B MOLECU LAR (POC) Rupali Duron PA-C Work Phone: Start: 10-16-2023 X-ray of both feet Start: 09-04-2022 Ecg routine ecg w/le ast 12 lds i&r only Coco Bucknerutzman FRETTED INSTRUMENT INSPECTOR.COURIER DELIVERY DRIVER Work Phone: Start: 06-07-2022 STREP A MOLECULAR (POC) [facility] Provider Start: 03-23-2022 X-ray of cervical spine Start: 03-23-2022 X-ray of lumbar spin e, two or three views Start: 08-08-2019 Adult depression scr eening assessment Tan Ortiz FRETTED INSTRUMENT INSPECTOR.COURIER DELIVERY DRIVER Work Phone: Plan of Treatment Date Care Activity Detail Author Start: 09-04-2027 Urine microalbumin profile [facility] Start: 02-12-2026 Annual PCP Team Nursing Officer khadijah Disease Visit Annual PCP Team Chronic Disease Visit [facility] Start: 02-12-2026 Anxiety Screening Anxiety Screening [facility] Start: 02-12-2026 Asthma Action Plan Asthma Action Imer n [facility] Comment on above: Postponed from 11/24 (Postponed - Not Clinically Indicated) Start: 02-12-2026 Covid-19 Vaccine () Covid-19 Vaccine () [facility] Comment on above: Postponed from 06/29 (Declined at this time) Start: 02-12-2026 Meningococcal B Vacc ine (1 of 2 - Standard) Meningococcal B Vaccine (1 of 2 - Standard) [facility] Comment on above: Postponed from 11/24 (Declined at this time) Start: 02-12-2026 Spirometry Spirometry [facility] Comment on above: Postponed from 11/24 (Declined at this time) Start: 02-12-2026 End: 02-12-2026 Patient encounter procedure 02/12/2026 7:00 AM EDT Office Visit [facility] [address] [place], [place] [id number] Dori Black PA-C [address] [place], [place] [id number] physical [facility] Comment on above: physical Start: 06-29-2025 Influenza vaccination Influenza Vacc ine (#1) [facility] Start: [facility]12-[facility] Start: 04-27-2025 Influenza vaccination Influenza Vacc ine (#1) [facility] Comment on above: Postponed from 06/29 (Declined at this time) Start: 02-12-2025 End: 05-14-2025 Basic metabolic 2000 panel - Serum or Plasma [facility] Comment on above: Expected: 02/12/2025 , Expires: 05/14/2025 Start: 02-12-2025 End: 05-14-2025 CBC W Auto Differential panel - Blood [facility] Comment on above: Expected: 02/12/2025 , Expires: 05/14/2025 Start: 02-12-2025 End: 05-14-2025 Hemoglobin A1c in Blood [facility] Comment on above: Expected: 02/12/2025 , Expires: 05/14/2025 Start: 02-12-2025 End: 05-14-2025 Hepatitis C virus Ab [Presence] in Serum [facility] Comment on above: Expected: 02/12/2025 , Expires: 05/14/2025 Start: 02-12-2025 End: 05-14-2025 HIV 1+2 Ab [Presence] in Serum or Plasma by Immunoassay [facility] Comment on above: Expected: 02/12/2025 , Expires: 05/14/2025 Start: 02-12-2025 End: 05-14-2025 LIPID PANEL, NONFASTING [facility] Work Phone: Comment on above: Expected: 02/12/2025 , Expires: 05/14/2025 Start: 06-29-2024 Covid-19 Vaccine ( season) Covid-19 Vaccine ( season) [facility] Start: 06-29-2024 Influenza vaccination Influenza Vacc ine (#1) [facility] Start: 2023 Pneumococcal vaccination Pneum ococcal Vaccine (1 of 2 - PCV) [facility] Start: 10-16-2023 [facility] Start: 09-04-2023 Annual PCP Team Nursing Officer khadijah Disease Visit Annual PCP Team Chronic Disease Visit [facility] Start: 09-04-2023 COVID-19 VACCINE (#1) COVID-19 VACCI NE (#1) [facility] Comment on above: Postponed from 05/24 (Declined at this time) Start: 06-29-2023 Influenza vaccination Influenza Vacc ine (#1) [facility] Start: 04-27-2023 Influenza vaccination INFLUENZA (#1) [facility] Comment on above: Postponed from 06/29 (Declined at this time) Start: 2022 Anxiety Screening Anxiety Screening [facility] Start: 2022 Hepatitis C Screening Hepatitis C [facility] Start: 2022 Hepatitis C screening Hepatitis C [facility] Start: 2022 HIV Screening HIV Screening [facility] Start: 2022 HIV screening HIV Screening [facility] Start: 2022 Spirometry Spirometry [facility] Start: 09-04-2022 End: 11-04-2022 CBC panel - Blood by Automated count CBC Lab Routine Migraine with aura, not intractable, without status migrainosus Palpitations Syncope, unspecified syncope type Diaphoresis Expected: 09/04/2022, Expires: 11/04/2022 [facility] Work Phone: Comment on above: Expected: 09/04/2022 , Expires: 11/04/2022 Start: 09-04-2022 End: 11-04-2022 Comprehensive metabolic 2000 panel - Serum or Plasma COMP METABOLIC PANEL Lab Routine Migraine with aura, not intractable, without status migrainosus Palpitations Syncope, unspecified syncope type Diaphoresis Expected: 09/04/2022, Expires: 11/04/2022 [facility] Work Phone: Comment on above: Expected: 09/04/2022 , Expires: 11/04/2022 Start: 09-04-2022 End: 11-04-2022 Hemoglobin A1c in Blood HGB A1C Lab Routine Migraine with aura, not intractable, without status migrainosus Palpitations Syncope, unspecified syncope type Diaphoresis Expected: 09/04/2022, Expires: 11/04/2022 [facility] Work Phone: Comment on above: Expected: 09/04/2022 , Expires: 11/04/2022 Start: 09-04-2022 End: 11-04-2022 Thyrotropin [Units/volume] in Serum or Plasma TSH BLD Lab Routine Migraine with aura, not intractable, without status migrainosus Palpitations Syncope, unspecified syncope type Diaphoresis Expected: 09/04/2022, Expires: 11/04/2022 [facility] Work Phone: Comment on above: Expected: 09/04/2022 , Expires: 11/04/2022 Start: 06-29-2022 Influenza vaccination INFLUENZA (#1) [facility] Start: 2020 Meningococcal B Vacc ine (1 of 2 - Standard) Meningococcal B Vaccine (1 of 2 - Standard) [facility] Start: 2020 Meningococcal B Vacc ine: Consider Based On Risk (1 of 2 - Patient Seeks Protection) Meningococcal B Vaccine: Consider Based On Risk (1 of 2 - Patient Seeks Protection) [facility] Start: 2020 MENINGOCOCCAL CONJUG ATE (1 - 2-dose series) MENINGOCOCCAL CONJUGATE (1 - 2-dose series) [facility] Start: 08-08-2020 Adult depression screening assessment DEPRESSION SCREENING [facility] Start: 2018 PEDS TO ADULT TRANSI TION ANNUAL ASSESSMENT PEDS TO ADULT TRANSITION ANNUAL ASSESSMENT [facility] Start: 2016 PEDS TO ADULT TRANSI TION INITIAL DISCUSSION PEDS TO ADULT TRANSITION INITIAL DISCUSSION [facility] Start: 2015 HPV VACCINE (1 - Mal e 2-dose series) HPV VACCINE (1 - Male 2-dose series) [facility] Start: 2015 Urine microalbumin profile DTAP,TDAP,TD (6 - Tdap) [facility] Start: 2014 MENINGOCOCCAL B: Consider based on risk (1 of 2 - Risk Bexsero 2-dose series) MENINGOCOCCAL B: Consider based on risk (1 of 2 - Risk Bexsero 2-dose series) [facility] Start: 2010 Pneumococcal vaccination Pneum ococcal Vaccine (1 of 2 - PCV) [facility] Start: 2008 ASTHMA CONTROL TEST ASTHMA CONTROL T EST [facility] Start: 2006 ASTHMA ACTION PLAN ASTHMA ACTION IMER N [facility] Start: 05-24-2005 COVID-19 VACCINE (#1) COVID-19 VACCI NE (#1) [facility] ALERE STREP A TEST (AG) ALERE ST REP A TEST (AG) Lab Routine Sore throat Ordered: 06/07/2022 [facility] Work Phone: Comment on above: Ordered: 06/07/2022 COVID & INFLUENZA A/ B & RSV PCR, ROUTINE COVID & INFLUENZA A/B & RSV PCR, ROUTINE Microbiology Routine URI, acute Ordered: 10/30/2024 [facility] Work Phone: Comment on above: Ordered: 10/30/2024 COVID, FLU A/B + RSV , ROUTINE COVID, FLU A/B + RSV, ROUTINE Microbiology Routine URI, acute Ordered: 06/07/2022 [facility] Work Phone: Comment on above: Ordered: 06/07/2022 OUTSIDE VENDOR CARDI AC OUTPATIENT EVENT RECORDER OUTSIDE VENDOR CARDIAC OUTPATIENT EVENT RECORDER Holter Routine Migraine with aura, not intractable, without status migrainosus Palpitations Syncope, unspecified syncope type Diaphoresis Ordered: 09/04/2022 [facility] Work Phone: Comment on above: Ordered: 09/04/2022 Patient Education [facility] Work Phone: Patient referral [facility] Work Phone: ROUTINE FLU A/B + RSV ROUTINE FL U A/B + RSV Lab Routine URI, acute Ordered: 06/07/2022 [facility] Work Phone: Comment on above: Ordered: 06/07/2022 SARS-CoV-2 (COVID-19 ) RNA [Presence] in Respiratory specimen by MIRELLA with probe detection 2019 CORONAVIRUS Microbiology Routine URI, acute Ordered: 06/07/2022 [facility] Work Phone: Comment on above: Ordered: 06/07/[address] [facility] Immunizations Immunization Date Immunization Notes Care Provider [facility] 02-12-2025 pneumococcal conjuga te (PCV20) vaccine, 20 valent (PREVNAR 20) Dori Black PA-C Work Phone: [facility] 02-12-2025 pneumococcal Conjuga te, unspecified formulation Dori Black PA-C Work Phone: [facility] 07-18-2022 Human Papillomavirus 9-valent vaccine Coco Yudith FRETTED INSTRUMENT INSPECTOR.COURIER DELIVERY DRIVER Work Phone: [facility] 07-18-2022 meningococcal polysaccharide (groups A, C, Y and W-135) diphtheria toxoid conjugate vaccine (MCV4P) Coco Yudith FRETTED INSTRUMENT INSPECTOR.COURIER DELIVERY DRIVER Work Phone: [facility] 08-08-2019 influenza, injectabl e, quadrivalent, contains preservative Tan Angel FRETTED INSTRUMENT INSPECTOR.COURIER DELIVERY DRIVER Work Phone: [facility] 08-08-2019 influenza virus vacc ine, unspecified formulation Coco Yudith FRETTED INSTRUMENT INSPECTOR.COURIER DELIVERY DRIVER Work Phone: [facility] 09-04-2017 Human Papillomavirus 9-valent vaccine Coco Yudith FRETTED INSTRUMENT INSPECTOR.COURIER DELIVERY DRIVER Work Phone: [facility] 09-04-2017 meningococcal polysaccharide (groups A, C, Y and W-135) diphtheria toxoid conjugate vaccine (MCV4P) Coco Yudith FRETTED INSTRUMENT INSPECTOR.COURIER DELIVERY DRIVER Work Phone: [facility] 09-04-2017 tetanus toxoid, redu robert diphtheria toxoid, and acellular pertussis vaccine, adsorbed Coco Yudith FRETTED INSTRUMENT INSPECTOR.COURIER DELIVERY DRIVER Work Phone: [facility] 08-01-2012 influenza virus vacc ine, unspecified formulation Tan Ortiz FRETTED INSTRUMENT INSPECTOR.COURIER DELIVERY DRIVER Work Phone: [facility] 06-16-2011 hepatitis A vaccine, unspecified formulation Tan Ortiz APRN.COURIER DELIVERY DRIVER Work Phone: [facility] 06-16-2011 measles, mumps and rubella virus vaccine Tan Ortiz FRETTED INSTRUMENT INSPECTOR.COURIER DELIVERY DRIVER Work Phone: [facility] 06-16-2011 poliovirus vaccine, inactivated Tan Ortiz FRETTED INSTRUMENT INSPECTOR.COURIER DELIVERY DRIVER Work Phone: [facility] 06-16-2011 varicella virus vaccine Maged fay FRETTED INSTRUMENT INSPECTOR.COURIER DELIVERY DRIVER Work Phone: [facility] 03-01-2010 diphtheria, tetanus toxoids and acellular pertussis vaccine Tan Ortiz FRETTED INSTRUMENT INSPECTOR.COURIER DELIVERY DRIVER Work Phone: [facility] Work Phone: 03-01-2010 hepatitis A vaccine, pediatric/adolescent dosage, 2 dose schedule Coco Zurita APRN.COURIER DELIVERY DRIVER Work Phone: [facility] 03-01-2010 hepatitis A vaccine, unspecified formulation Tan Ortiz APRN.[facility] Work Phone: [facility] Work Phone: 12-14-2009 haemophilus influenz ae type b vaccine, HbOC conjugate Tan Ortiz FRETTED INSTRUMENT INSPECTOR.COURIER DELIVERY DRIVER Work Phone: [facility] Work Phone: 12-14-2009 haemophilus influenz ae type b vaccine, PRP-T conjugate Coco Zurita FRETTED INSTRUMENT INSPECTOR.COURIER DELIVERY DRIVER Work Phone: [facility] 03-21-2006 measles, mumps and rubella virus vaccine Tan Ortiz FRETTED INSTRUMENT INSPECTOR.COURIER DELIVERY DRIVER Work Phone: [facility] Work Phone: 03-21-2006 varicella virus vaccine Maged aponte FRETTED INSTRUMENT INSPECTOR.COURIER DELIVERY DRIVER Work Phone: [facility] Work Phone: 01-11-2006 pneumococcal conjuga te vaccine, 7 valent Tan Angel FRETTED INSTRUMENT INSPECTOR.[facility] Work Phone: [facility] Work Phone: 12-14-2005 diphtheria, tetanus toxoids and acellular pertussis vaccine Tan Angel FRETTED INSTRUMENT INSPECTOR.COURIER DELIVERY DRIVER Work Phone: [facility] Work Phone: 12-14-2005 hepatitis B vaccine, pediatric or pediatric/adolescent dosage Tan Angel FRETTED INSTRUMENT INSPECTOR.COURIER DELIVERY DRIVER Work Phone: [facility] Work Phone: 09-19-2005 hepatitis B vaccine, pediatric or pediatric/adolescent dosage Tna Angel FRETTED INSTRUMENT INSPECTOR.[facility] Work Phone: [facility] Work Phone: 09-19-2005 poliovirus vaccine, inactivated Tan Angel FRETTED INSTRUMENT INSPECTOR.[facility] Work Phone: [facility] Work Phone: 05-24-2005 diphtheria, tetanus toxoids and acellular pertussis vaccine Tan Angel FRETTED INSTRUMENT INSPECTOR.COURIER DELIVERY DRIVER Work Phone: [facility] Work Phone: 05-24-2005 haemophilus influenz ae type b vaccine, HbOC conjugate Tan Angel FRETTED INSTRUMENT INSPECTOR.COURIER DELIVERY DRIVER Work Phone: [facility] Work Phone: 05-24-2005 pneumococcal conjuga te vaccine, 7 valent Tan Angel FRETTED INSTRUMENT INSPECTOR.COURIER DELIVERY DRIVER Work Phone: [facility] Work Phone: 03-28-2005 diphtheria, tetanus toxoids and acellular pertussis vaccine Tan Angel FRETTED INSTRUMENT INSPECTOR.COURIER DELIVERY DRIVER Work Phone: [facility] Work Phone: 03-28-2005 haemophilus influenz ae type b vaccine, HbOC conjugate Tan Angel FRETTED INSTRUMENT INSPECTOR.COURIER DELIVERY DRIVER Work Phone: [facility] Work Phone: 03-28-2005 pneumococcal conjuga te vaccine, 7 valent Tan Angel FRETTED INSTRUMENT INSPECTOR.COURIER DELIVERY DRIVER Work Phone: [facility] Work Phone: 03-28-2005 poliovirus vaccine, inactivated Tan Ortiz FRETTED INSTRUMENT INSPECTOR.[facility] Work Phone: [facility] Work Phone: 01-23-2005 diphtheria, tetanus toxoids and acellular pertussis vaccine Tan Ortiz FRETTED INSTRUMENT INSPECTOR.[facility] Work Phone: [facility] Work Phone: 01-23-2005 diphtheria, tetanus toxoids and acellular pertussis vaccine, 5 pertussis antigens Cocotasia Zurita FRETTED INSTRUMENT INSPECTOR.[facility] Work Phone: [facility] 01-23-2005 haemophilus influenz ae type b vaccine, HbOC conjugate Tan Ortiz FRETTED INSTRUMENT INSPECTOR.[facility] Work Phone: [facility] Work Phone: 01-23-2005 pneumococcal conjuga te vaccine, 7 valent Tan King FRETTED INSTRUMENT INSPECTOR.[facility] Work Phone: [facility] Work Phone: 01-23-2005 poliovirus vaccine, inactivated Tan Ortiz FRETTED INSTRUMENT INSPECTOR.[facility] Work Phone: [facility] Work Phone: 2004 hepatitis B vaccine, pediatric or pediatric/adolescent dosage Tan Ortiz FRETTED INSTRUMENT INSPECTOR.[facility] Work Phone: [facility] Work Phone: Payers Date Payer Category Payer Self-pay [id number] 2024 [facility] FEP PPO [id number] 2024 Unknown [employer] BC BS FEP PPO [id number] 2024-Present [phone] [address] [place] [address] PPO [id number] 2024 Unknown [id number] 2018 Medicaid [id number] 2004 Unknown [id number] Unknown [id number] Unknown [id number] Unknown [id number] Worker's Compensation [id number] Social History Date Type Detail Facility Start: 03-23-2022 End: 10-16-2023 Tobacco smoking status MIIS Unknown if ever smoked [facility] Start: 2004 Sex Assigned At Male [facility] Start: 06-07-2022 End: 02-12-2025 Tobacco smoking status NHIS Never smoked tobacco [facility] History of tobacco use Passive smoker [facility] Start: 06-07-2022 End: 02-12-2025 Tobacco use and exposure Smokeless tobacco non-user [facility] Start: 06-07-2022 End: 10-30-2024 Alcohol intake Not Asked [facility] Start: 06-07-2022 Tobacco Comment mom smokes outside [facility] Start: 2004 Sex Assigned At Not on file [facility] Start: 05-28-2022 End: 06-07-2022 Exposure to SARS-CoV-2 (event) Yes [facility] Start: 08-22-2022 History SDOH Physica l Activity DPW 5 [facility] Start: 08-22-2022 History SDOH Physica l Activity MPS 15 [facility] Start: 08-22-2022 History SDOH Food Worry 1 [facility] Start: 08-22-2022 History SDOH Transpo rt Med 2 [facility] Start: 08-25-2022 End: 09-04-2022 Exposure to SARS-CoV-2 (event) Not sure [facility] Start: 09-04-2022 End: 02-12-2025 History of Social function [facility] Start: 09-04-2022 End: 02-12-2025 Tobacco use panel [facility] How hard is it for y ou to pay for the very basics like food, housing, medical care, and heating Not hard at all [facility] (I/We) worried joyce (my/our) food would run out before (I/we) got money to buy more. Never true [facility] At any time in the past 12 months, were you homeless or living in correction [including now]? No [facility] Start: 08-11-2022 Gender identity Identifies as male gender (finding) [facility] Start: 02-12-2025 End: 05-09-2025 Alcoholic beverage intake Ex-drinker (finding) [facility] Start: 02-12-2025 Tobacco Comment mom smokes out sideUses nicotine pouches (tobacco free) [facility] Start: 05-12-2025 Tobacco smoking stat us MIIS Smokes tobacco daily (finding) [facility] Mental Status Date Assessment Result Facility 05-12-2025 Cognitive function Level Of Cons ciousness Awake;Alert;Appropriate;Follow s Commands [facility] Work Phone: Clinical Notes 06-07-2022 to 05-12-2025 Dolores Souza PA - 05/09/2025 3:14 PM EDTTelephone Encounter - Chavo Hendrickson LPN - 02/24/2025 12:00 PM EDTTelephone Encounter - Chavo Hendrickson LPN - 02/24/2025 12:00 PM EDT Note Date & Type Note Facility 05-12-2025 Discharge summary [facility] 05-12-2025 Radiology Diagnostic study note [facility] Imaging Services [address] [place] [address] Chest PA and Lateral MR#: [id number] Acct: [id number] Name: EUGENE SALVADOR Rep #: [id number] : 2005 M 19 From: Zuleyka Jensen MD PCP: Dr. Pooja Ding MD Status: R EG ER Study:Chest PA and Lateral Date of Exam: 05/12/25 Exam# [id number] Ordering Dr: Johan Garland DO EXAM: XR Chest, 2 Views CLINICAL INDICATION: COUGH TECHNIQUE: Frontal and lateral views of the chest. COMPARISON: No relevant prior studies available. FINDINGS: LUNGS AND PLEURAL SPACES: Unremarkable. No consolidation. No pneumothorax. HEART: Unremarkable. No cardiomegaly. MEDIASTINUM: Unremarkable. Normal mediastinal contour. BONES/JOINTS: Unremarkable. No acute fracture. RAD/Chest PA and Lateral IMPRESSION: No acute cardiopulmonary process. Reading [facility] CC: Dr. Johan Acevedo DO; Dr. Pooja Ding MD ~ Sheet Metal Worker Helper: Signed [facility] 05-09-2025 Note HNO ID: [id number] Author: DOLORES SOUZA PA Service: ? Author Type: Physician Psychiatric Aides Teacher Type: Progress Notes Filed: 05/09/2025 15:17 Note Text: URGENT CARE [facility] Eugene Salvador is a 19 year old male. Patient presents with: Sore Throat: ST, cough and bodyaches x 3 days HPI Sore Throat: - Onset 3 days ago. - Associated with cough and nasal congestion. - No relief with ibuprofen. - Denies fever. - Denies known exposure to sick contacts. - Able to eat and drink without difficulty. Headache and Myalgia: - Onset 3 days ago. - + some relief with ibuprofen. PAST MEDICAL HISTORY Diagnosis Date Asthma Multiple allergies dog saliva, cat dander, pine, smoke, scented candles PAST SURGICAL HISTORY Procedure Laterality Date KNEE SURGERY HX Left 06/2024 ALLERGIES Seasonal Allergies and Smoke MEDICATIONS albuterol HFA (PROVENTIL HFA, VENTOLIN HFA) 90 mcg/actuation inhaler Inhale 2 puffs as instructed every 6 hours as needed for wheezing/shortness of breath. fluticasone (FLOVENT HFA) 44 mcg/actuation inhaler Inhale 2 puffs as instructed two times a day. USE WITH SPACER. cetirizine (ZYRTEC) 10 mg tablet Take 1 tablet by mouth once daily. multivitamin tablet Take 1 tablet by mouth once daily. FAMILY HISTORY Problem Relation Age of Onset Cancer Other Maternal side Hypertension Other Maternal side Cancer Other Paternal side Social History Tobacco Use Smoking status: Never Passive exposure: Yes Smokeless tobacco: Never Tobacco comments: mom smokes outside Uses nicotine pouches (tobacco free) Vaping Use Vaping status: Some Days Substances: Nicotine Substance Use Topics Alcohol use: Not Currently Drug use: Never Review of Systems Constitutional: (-) fever Head: (+) headache Ears/Nose/Mouth/Throat: (+) nasal congestion Neck: (+) neck pain Respiratory: (+) cough Musculoskeletal: (+) myalgia Neurological: (+) lightheadedness Objective BP 110/72 Pulse 75 Temp 36.2 ?C (97.2 ?F) (Tympanic) Resp 16 Wt 69.4 kg (153 lb) SpO2 99% BMI 23.05 kg/m? Physical Exam Vitals reviewed. Constitutional: General: He is not in acute distress. Appearance: Normal appearance. He is not toxic-appearing. HENT: Right Ear: Tympanic membrane and ear canal normal. Left Ear: Tympanic membrane and ear canal normal. Mouth/Throat: Mouth: Mucous membranes are moist. Pharynx: Uvula midline. Posterior oropharyngeal erythema present. Tonsils: 1+ on the right. 1+ on the left. Cardiovascular: Rate and Rhythm: Normal rate and regular rhythm. Pulmonary: Effort: Pulmonary effort is normal. Breath sounds: Normal breath sounds. Lymphadenopathy: Cervical: No cervical adenopathy. Skin: General: Skin is warm and dry. Neurological: Mental Status: He is alert. { 1. Sore throat (J02.9) - Onset 3 days ago, accompanied by cephalalgia, myalgia, cough, nasal congestion, and orthostatic lightheadedness. - Oropharyngeal examination reveals erythema; tympanic membranes are clear bilaterally; pulmonary auscultation reveals clear breath sounds. - Rapid strep test negative. - Recommended supportive care: Acetaminophen, Ibuprofen, warm saltwater gargles, and throat lozenges. 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 Patient/authorized sales representative church furniture agreed to proceed Diagnosis and treatment plan were discussed and questions were answered to the patient's satisfaction. Pt acknowledged understanding of concepts and follow up plan. Specific signs and symptoms that would indicate the need for higher level of care were discussed in detail warranting prompt ER evaluation. Differential Diagnoses - Viral pharyngitis is more likely for the following reason(s): suggested by HANDP - URI is more likely for the following reason(s): suggested by HANDP - Strep pharyngitis is less likely for the following reason(s): laboratory studies not suggestive - Peritonsillar abscess is less likely for the following reason(s): laboratory studies not suggestive Disposition The patient was discharged. OTC Medications were advised: Tylenol/Motrin Procedures [facility] 05-09-2025 History of Present illness Narrative [facility] Salvador is a 19 year old male. Patient presents with: Sore Throat: ST, cough and bodyaches x 3 days HPI Sore Throat: - Onset 3 days ago. - Associated with cough and nasal congestion. - No relief with ibuprofen. - Denies fever. - Denies known exposure to sick contacts. - Able to eat and drink without difficulty. Headache and Myalgia: - Onset 3 days ago. - + some relief with ibuprofen. PAST MEDICAL HISTORY Diagnosis Date Asthma Multiple allergies dog saliva, cat dander, pine, smoke, scented candles PAST SURGICAL HISTORY Procedure Laterality Date KNEE SURGERY HX Left 06/2024 ALLERGIES Seasonal Allergies and Smoke MEDICATIONS albuterol HFA (PROVENTIL HFA, VENTOLIN HFA) 90 mcg/actuation inhaler Inhale 2 puffs as instructed every 6 hours as needed for wheezing/shortness of breath. fluticasone (FLOVENT HFA) 44 mcg/actuation inhaler Inhale 2 puffs as instructed two times a day. USE WITH SPACER. cetirizine (ZYRTEC) 10 mg tablet Take 1 tablet by mouth once daily. multivitamin tablet Take 1 tablet by mouth once daily. FAMILY HISTORY Problem Relation Age of Onset Cancer Other Maternal side Hypertension Other Maternal side Cancer Other Paternal side Social History Tobacco Use Smoking status: Never Passive exposure: Yes Smokeless tobacco: Never Tobacco comments: mom smokes outside Uses nicotine pouches (tobacco free) Vaping Use Vaping status: Some Days Substances: Nicotine Substance Use Topics Alcohol use: Not Currently Drug use: Never Review of Systems Constitutional: (-) fever Head: (+) headache Ears/Nose/Mouth/Throat: (+) nasal congestion Neck: (+) neck pain Respiratory: (+) cough Musculoskeletal: (+) myalgia Neurological: (+) lightheadedness Objective BP 110/72 Pulse 75 Temp 36.2 C (97.2 F) (Tympanic) Resp 16 Wt 69.4 kg (153 lb) SpO2 99% BMI 23.05 kg/m Physical Exam Vitals reviewed. Constitutional: General: He is not in acute distress. Appearance: Normal appearance. He is not toxic-appearing. HENT: Right Ear: Tympanic membrane and ear canal normal. Left Ear: Tympanic membrane and ear canal normal. Mouth/Throat: Mouth: Mucous membranes are moist. Pharynx: Uvula midline. Posterior oropharyngeal erythema present. Tonsils: 1+ on the right. 1+ on the left. Cardiovascular: Rate and Rhythm: Normal rate and regular rhythm. Pulmonary: Effort: Pulmonary effort is normal. Breath sounds: Normal breath sounds. Lymphadenopathy: Cervical: No cervical adenopathy. Skin: General: Skin is warm and dry. Neurological: Mental Status: He is alert. { 1. Sore throat (J02.9) - Onset 3 days ago, accompanied by cephalalgia, myalgia, cough, nasal congestion, and orthostatic lightheadedness. - Oropharyngeal examination reveals erythema; tympanic membranes are clear bilaterally; pulmonary auscultation reveals clear breath sounds. - Rapid strep test negative. - Recommended supportive care: Acetaminophen, Ibuprofen, warm saltwater gargles, and throat lozenges. 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 Patient/authorized sales representative church furniture agreed to proceed Diagnosis and treatment plan were discussed and questions were answered to the patient's satisfaction. Pt acknowledged understanding of concepts and follow up plan. Specific signs and symptoms that would indicate the need for higher level of care were discussed in detail warranting prompt ER evaluation. Differential Diagnoses - Viral pharyngitis is more likely for the following reason(s): suggested by H&P - URI is more likely for the following reason(s): suggested by H&P - Strep pharyngitis is less likely for the following reason(s): laboratory studies not suggestive - Peritonsillar abscess is less likely for the following reason(s): laboratory studies not suggestive Disposition The patient was discharged. OTC Medications were advised: Tylenol/Motrin Procedures documented in this encounter [facility] 02-24-2025 Telephone encounter Note Left message regarding medication change on pt's vm. Chavo Hendrickson LPN [facility] 02-24-2025 Miscellaneous Notes Left message regarding medication change on pt's vm. Chavo Hendrcikson LPN Left message for pt to contact office regarding Zyrtec refill. Chavo Hendrickson LPN Let patient know that the chewable is over very expensive and insurance won't cover. I will send in regular tablet. He requested the chewable, so just wanted to let him know. Dori Black PA-C Please see message from pharmacy needing regular tablets. Chavo Hendrickson LPN documented in this encounter [facility] 02-13-2025 Telephone encounter Note PATIENT NOTIFIED OF INFORMATION [facility] 02-13-2025 Miscellaneous Notes PATIENT NOTIFIED OF INFORMATION Left message for patient to contact office. Carisa Gonzales MA' Let patient know that all his labs are normal. documented in this encounter [facility] 02-13-2025 Telephone encounter Note Left message for patient to contact office. Carisa Gonzales MA' [facility] 02-13-2025 Telephone encounter Note Let patient know that all his labs are normal. [facility] 02-12-2025 Telephone encounter Note Left message for pt to contact office regarding Zyrtec refill. Chavo Hendrickson LPN [facility] 02-12-2025 Telephone encounter Note Let patient know that the chewable is over very expensive and insurance won't cover. I will send in regular tablet. He requested the chewable, so just wanted to let him know. Dori Black PA-C [facility] 02-12-2025 Telephone encounter Note Please see message from pharmacy needing regular tablets. Chavo Hendrickson LPN [facility] 02-12-2025 Note HNO ID: [id number] Author: DORI BLACK PA-C Service: ? Author Type: Physician Psychiatric Aides Teacher Type: Progress Notes Filed: 02/12/2025 07:47 Note Text: Chief Complaint Patient presents with: Yearly Exam HPI Eugene Salvador is a 19 year old male who presents here today for physical. Patient with hx of asthma, allergies, depression-in remission, and those as below. Asthma: - Uses albuterol inhaler 3-4 times/week; effective in relieving wheezing. - Out of albuterol inhaler currently. - Previously used Flovent inhaler daily but discontinued due to perceived lack of efficacy. reports he was not using it consistently - Experiences wheezing with physical activity; unable to be active without inhaler. - No significant cough or dyspnea. - vapes nicotine and uses nicotine pouches. Depression: - History of depression related to family issues; previously on medication. - Reports resolution of depression symptoms. Past medical history, appointments, medications, allergies reviewed. Previous Medical History PAST MEDICAL HISTORY Diagnosis Date Asthma Multiple allergies dog saliva, cat dander, pine, smoke, scented candles Previous Surgical History PAST SURGICAL HISTORY Procedure Laterality Date KNEE SURGERY HX Left 06/2024 Family History FAMILY HISTORY Problem Relation Age of Onset Cancer Other Maternal side Hypertension Other Maternal side Cancer Other Paternal side Patient Allergies ALLERGIES Allergen Reactions Seasonal Allergies Other: See Comments Dust mites trees (December, January and February) grasses (February and March) Smoke Itching Current Medications Current Outpatient Medications on File Prior to Visit Medication Sig multivitamin tablet Take 1 tablet by mouth once daily. No current facility-administered medications on file prior to visit. Social History Social History Tobacco Use Smoking status: Never Passive exposure: Yes Smokeless tobacco: Never Tobacco comments: mom smokes outside Uses nicotine pouches (tobacco free) Vaping Use Vaping status: Some Days Substances: Nicotine Substance Use Topics Alcohol use: Not Currently Drug use: Never Review of Symptoms REVIEW OF SYSTEMS GENERAL: No weight loss, malaise or fevers HEENT: No changes in hearing or vision, no nose bleeds or other nasal problems NECK: Negative for lumps, goiter, pain and significant neck swelling RESPIRATORY: See HPI CARDIOVASCULAR: Negative for chest pain, leg swelling, hypertension, CHF or palpitations GI: Negative for abdominal discomfort, blood in stools or black stools, change in bowel habit, heart burn, nausea, vomiting : No history of dysuria, frequency or incontinence MUSCULOSKELETAL: Negative for joint pain or swelling, back pain or muscle pain SKIN: Negative for lesions, rash, and itching PSYCH: Negative for sleep disturbance, mood disorder and recent psychosocial stressors HEMATOLOGY/LYMPHOLOGY: Negative for prolonged bleeding, bruising easily or swollen nodes ENDOCRINE: Negative for cold or heat intolerance, polyuria, polydipsia and goiter NEURO: No history of headaches, syncope, paralysis, seizures or tremors SEE HPI EXAM: BP 96/66 (BP Site: Left Arm, BP Position: Sitting, BP Cuff Size: Large Adult) Pulse 88 Temp 36.5 ?C (97.7 ?F) Resp 16 Ht 173.5 cm (5' 8.31) Wt 68.5 kg (151 lb) SpO2 96% BMI 22.75 kg/m? General Appearance: Well appearing, alert, in no acute distress, well-hydrated, well nourished.. Skin: Skin color, texture, turgor normal, no suspicious rashes or lesions on exposed skin. Head: Normocephalic, no masses, lesions, tenderness or abnormalities. Eyes: Anicteric sclera. Pupils are equally round and reactive to light. Extraocular movements are intact. . Ears: External ears normal, canals clear, TMs pearly holloway. Nose/Sinuses: Nares normal, septum midline, mucosa normal, no drainage or sinus tenderness. Oropharynx: Lips, mucosa, and tongue normal, teeth and gums normal, oropharynx normal. Neck: Supple, no adenopathy; thyroid symmetric, normal size, no bruits. Lungs: Lungs clear to auscultation. No wheezing, rhonchi, rales.. Heart: RRR without murmur, gallop, or rubs. No ectopy. Abdomen: Normal abdominal exam, Abdomen soft, non-tender. Bowel sounds normal. No masses, organomegaly. Extremities: No deformities, edema, skin discoloration, clubbing or cyanosis. Good capillary refill. Peripheral Pulses: Normal. Neurologic: Gait normal. Reflexes normal and symmetric. Sensation grossly intact.. Health Maintenance List Hepatitis C Screening Never done HIV Screening Never done Influenza Vaccine(1) due on 04/27/2025 Spirometry due on 02/12/2026 Meningococcal B Vaccine(1 of 2 - Standard) due on 02/12/2026 Asthma Action Plan due on 02/12/2026 Covid-19 Vaccine( season) due on 02/12/2026 Annual PCP Team Chronic Disease Visit due on 02/12/2026 Anxiety Screening due on (more content not included)... [facility] 02-12-2025 History of Present illness Narrative Chief Complaint Patient presents with: Yearly Exam HPI Eugene Salvador is a 19 year old male who presents here today for physical. Patient with hx of asthma, allergies, depression-in remission, and those as below. Asthma: - Uses albuterol inhaler 3-4 times/week; effective in relieving wheezing. - Out of albuterol inhaler currently. - Previously used Flovent inhaler daily but discontinued due to perceived lack of efficacy. reports he was not using it consistently - Experiences wheezing with physical activity; unable to be active without inhaler. - No significant cough or dyspnea. - vapes nicotine and uses nicotine pouches. Depression: - History of depression related to family issues; previously on medication. - Reports resolution of depression symptoms. Past medical history, appointments, medications, allergies reviewed. Previous Medical History PAST MEDICAL HISTORY Diagnosis Date Asthma Multiple allergies dog saliva, cat dander, pine, smoke, scented candles Previous Surgical History PAST SURGICAL HISTORY Procedure Laterality Date KNEE SURGERY HX Left 06/2024 Family History FAMILY HISTORY Problem Relation Age of Onset Cancer Other Maternal side Hypertension Other Maternal side Cancer Other Paternal side Patient Allergies ALLERGIES Allergen Reactions Seasonal Allergies Other: See Comments Dust mites trees (December, January and February) grasses (February and March) Smoke Itching Current Medications Current Outpatient Medications on File Prior to Visit Medication Sig multivitamin tablet Take 1 tablet by mouth once daily. No current facility-administered medications on file prior to visit. Social History Social History Tobacco Use Smoking status: Never Passive exposure: Yes Smokeless tobacco: Never Tobacco comments: mom smokes outside Uses nicotine pouches (tobacco free) Vaping Use Vaping status: Some Days Substances: Nicotine Substance Use Topics Alcohol use: Not Currently Drug use: Never Review of Symptoms REVIEW OF SYSTEMS GENERAL: No weight loss, malaise or fevers HEENT: No changes in hearing or vision, no nose bleeds or other nasal problems NECK: Negative for lumps, goiter, pain and significant neck swelling RESPIRATORY: See HPI CARDIOVASCULAR: Negative for chest pain, leg swelling, hypertension, CHF or palpitations GI: Negative for abdominal discomfort, blood in stools or black stools, change in bowel habit, heart burn, nausea, vomiting : No history of dysuria, frequency or incontinence MUSCULOSKELETAL: Negative for joint pain or swelling, back pain or muscle pain SKIN: Negative for lesions, rash, and itching PSYCH: Negative for sleep disturbance, mood disorder and recent psychosocial stressors HEMATOLOGY/LYMPHOLOGY: Negative for prolonged bleeding, bruising easily or swollen nodes ENDOCRINE: Negative for cold or heat intolerance, polyuria, polydipsia and goiter NEURO: No history of headaches, syncope, paralysis, seizures or tremors SEE HPI EXAM: BP 96/66 (BP Site: Left Arm, BP Position: Sitting, BP Cuff Size: Large Adult) Pulse 88 Temp 36.5 C (97.7 F) Resp 16 Ht 173.5 cm (5' 8.31) Wt 68.5 kg (151 lb) SpO2 96% BMI 22.75 kg/m General Appearance: Well appearing, alert, in no acute distress, well-hydrated, well nourished.. Skin: Skin color, texture, turgor normal, no suspicious rashes or lesions on exposed skin. Head: Normocephalic, no masses, lesions, tenderness or abnormalities. Eyes: Anicteric sclera. Pupils are equally round and reactive to light. Extraocular movements are intact. . Ears: External ears normal, canals clear, TMs pearly holloway. Nose/Sinuses: Nares normal, septum midline, mucosa normal, no drainage or sinus tenderness. Oropharynx: Lips, mucosa, and tongue normal, teeth and gums normal, oropharynx normal. Neck: Supple, no adenopathy; thyroid symmetric, normal size, no bruits. Lungs: Lungs clear to auscultation. No wheezing, rhonchi, rales.. Heart: RRR without murmur, gallop, or rubs. No ectopy. Abdomen: Normal abdominal exam, Abdomen soft, non-tender. Bowel sounds normal. No masses, organomegaly. Extremities: No deformities, edema, skin discoloration, clubbing or cyanosis. Good capillary refill. Peripheral Pulses: Normal. Neurologic: Gait normal. Reflexes normal and symmetric. Sensation grossly intact.. Health Maintenance List Hepatitis C Screening Never done HIV Screening Never done Influenza Vaccine(1) due on 04/27/2025 Spirometry due on 02/12/2026 Meningococcal B Vaccine(1 of 2 - Standard) due on 02/12/2026 Asthma Action Plan due on 02/12/2026 Covid-19 Vaccine() due on 02/12/2026 Annual PCP Team Chronic Disease Visit due on 02/12/2026 Anxiety Screening due on 02/12/2026 DTaP,Tdap,Td Vaccine(7 - Td or Tdap) due on 09/04/2027 Hepatitis B Vaccine Completed HPV Vaccine Completed Pneumococcal Vaccine Completed Asthma Control Test Discontinued Data reviewed N/a Assessment and Plan 1. Well adult exam (Z00.00) - Comprehensive physical examination performed; no abnormalities noted. - pneumonia vaccine today - labs ordered - f/u in 1 year 2. Encounter for screening examination for other mental health and behavioral disorders (Z13.39) - Discussed history of depression; patient reports resolution of symptoms. - No current mental health concerns reported. 3. Mild persistent extrinsic asthma without complication (HCC) (J45.30) 4. Moderate persistent asthma without complication (HCC) (J45.40) - Asthma management reviewed; patient using albuterol inhaler 3-4 times per week. - Flovent inhaler use inconsistent; patient did not notice improvement. - Educated on the importance of regular use of Flovent to reduce frequency of albuterol use. - Discussed potential lung function test to assess asthma management; deferred at this time. 5. 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 6. Screening for diabetes mellitus (Z13.1) - labs placed 7. Encounter for lipid screening for cardiovascular disease (Z13.220) - Ordered lipid panel to establish baseline cholesterol levels. - Discussed dietary modifications if results are elevated; no medication initiation planned based on initial results. 8. Encounter for immunization (Z23) - Administered pneumonia vaccine due to increased risk from asthma. - Discussed meningitis B vaccine; patient declined. 9. Need for hepatitis C screening test (Z11.59) - Ordered hepatitis C screening as part of routine lab work. 10. Screening for HIV (human immunodeficiency virus) (Z11.4) - Ordered HIV screening as part of routine lab work. 11. Personal history of nicotine dependence (Z87.891) - Patient uses nicotine pouches ([employer]) and vapes occasionally. - Discussed potential impact of nicotine and vaping use on asthma management. 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 Patient/authorized sales representative church furniture agreed to proceed documented in this encounter [facility] 10-31-2024 Telephone encounter Note Patient notified. Karina Pruitt MA [facility] [facility] 10[facility] Miscellaneous Notes Patient notified. Karina Pruitt MA Patient is negative for COVID flu and RSV documented in this encounter [facility] 10-31-2024 Telephone encounter Note Patient is negative for COVID flu and RSV [facility] Work Phone: 10-30-2024 History of Present illness Narrative Radiology Service Progress Note PATIENT NAME: Eugene Salvador DATE OF SERVICE: October 30, 2024 TIME: 4:10 PM PATIENT IDENTITY VERIFICATION COMPLETED USING TWO (2) IDENTIFIERS: Name and Date of confirmed by patient verbally. FALL SCREENING: Has the patient had 2 falls in the last year or 1 fall with injury or currently using an Ambulatory Assistive Device (Walker, Cane, Wheelchair, Crutches, etc.)? No PATIENT GENDER DATA: Male PATIENT RELEVANT IMPLANT DATA REVIEWED: Yes PATIENT PRESENTS WITH AN IMPLANTABLE OR ATTACHED SALES AND CUSTOMER RELATIONS REP: No RADIOLOGY DEPARTMENT: General X-ray: Exam(s) Completed: Chest X-Ray PERIPHERAL IV DATA: Not applicable SIGNED BY: RT Radha(Felice) October 30, 2024 4:10 PM documented in this encounter [facility] 10-30-2024 Note HNO ID: [id number] Author: NIKOLE GERBER RT(R) Service: ? Author Type: Property Condition Assessor Type: Progress Notes Filed: 10/30/2024 16:15 Note Text: Radiology Service Progress Note PATIENT NAME: Eugene Salvador DATE OF SERVICE: October 30, 2024 TIME: 4:10 PM PATIENT IDENTITY VERIFICATION COMPLETED USING TWO (2) IDENTIFIERS: Name and Date of confirmed by patient verbally. FALL SCREENING: Has the patient had 2 falls in the last year or 1 fall with injury or currently using an Ambulatory Assistive Device (Walker, Cane, Wheelchair, Crutches, etc.)? No PATIENT GENDER DATA: Male PATIENT RELEVANT IMPLANT DATA REVIEWED: Yes PATIENT PRESENTS WITH AN IMPLANTABLE OR ATTACHED SALES AND CUSTOMER RELATIONS REP: No RADIOLOGY DEPARTMENT: General X-ray: Exam(s) Completed: Chest X-Ray PERIPHERAL IV DATA: Not applicable SIGNED BY: RT Radha(Felice) October 30, 2024 4:[address] [facility] 10-30-2024 Note HNO ID: [id number] Author: VICKY GONZALES APRN.COURIER DELIVERY DRIVER Service: ? Author Type: Nurse Practitioner Type: Progress Notes Filed: 10/30/2024 16:38 Note Text: CC: Patient presents with: Cough: Chest congestion, fever, bodyaches, SOB x1 day HPI: Eugene Salvador is a 18 year old male who presents to the office with complaint of chest congestion, head congestion, cough, nonproductive, and fever for the past day. Symptoms are staying the same. Associated symptoms includes body aches, wheezing, and dyspnea. Denies nausea, vomiting , and diarrhea. Treatments tried include nothing so far. with no relief of symptoms. Sick contacts: unknown. History of asthma, frequent episodes of bronchitis, chronic bronchitis, bronchiectasis or COPD: Yes asthma Smoker: No Seasonal/environmental allergies: No The ROS is otherwise negative. The patient's pmh, medications, allergies, and past visits are reviewed. PHYSICAL EXAM: BP 118/70 Pulse 110 Temp 37.3 ?C (99.1 ?F) Resp 18 Wt 68.2 kg (150 lb 5.7 oz) SpO2 97% General appearance: alert, cooperative, pleasant, in no acute distress Head: Normocephalic Eyes: EOM's intact, conjunctiva pink and moist, no icterus, sclera white, non-injected Ears: Right ear: External ear/canal- Normal, TM - clear with good landmarks. Left ear: External ear/canal- Normal, TM - clear with good landmarks Oropharynx:moderate erythema, without exudates present Heart: Negative. RRR without obvious murmur, gallop, or rubs. No ectopy. Lungs: clear to auscultation, without rales or wheeze, good air exchange PAST MEDICAL HISTORY Diagnosis Date Asthma Multiple allergies dog saliva, cat dander, pine, smoke, scented candles PAST SURGICAL HISTORY Procedure Laterality Date NONE ALLERGIES Seasonal Allergies and Smoke MEDICATIONS benzonatate (TESSALON PERLES) 100 mg capsule Take 2 capsules by mouth three times a day as needed. albuterol HFA (PROAIR HFA) 90 mcg/actuation inhaler Inhale 2 Puffs as instructed every 6 hours as needed. albuterol HFA (PROAIR HFA) 90 mcg/actuation inhaler Inhale 2 Puffs as instructed every 4 hours as needed. montelukast (SINGULAIR) 10 mg tablet Take 1 tablet by mouth daily at bedtime. fluticasone (FLOVENT HFA) 44 mcg/actuation inhaler Inhale 2 Puffs as instructed twice daily. USE WITH SPACER. rizatriptan (MAXALT) 10 mg tablet Take 1 tablet by mouth at first sign of migraine headache, may repeat in 2 hours if no improvement cetirizine HCl (ZYRTEC) 10 mg chewable tablet Take 1 tablet by mouth once daily. mometasone (ELOCON) 0.1 % cream Apply 1 application to affected area once daily. clindamycin (CLEOCIN-T) 1 % gel Apply 1 application to affected area twice daily. benzoyl peroxide (PANOXYL, DESQUAM-X, OXY-5) 5 % gel Apply 1 application to affected area once daily. albuterol HFA 90 mcg/actuation inhaler Inhale 2 Puffs as instructed every 4 hours as needed (for cough, wheezing, chest tightness or shortness of breath. Use with spacer. ). multivitamin tablet Take 1 tablet by mouth once daily. Pedi MVI No.17 with Fluoride (MULTI-VITAMIN WITH FLUORIDE) 1 mg Chew 1 tablet once a day PO albuterol 90 mcg/actuation Aero 2 puffs every 4 to 6 hours prn tight cough/wheezing Polyethylene Glycol 3350 (MIRALAX) 17 gram/dose powder 1 capful once a day for constipation FAMILY HISTORY Problem Relation Age of Onset Cancer Other Maternal side Hypertension Other Maternal side Cancer Other Paternal side Social History Tobacco Use Smoking status: Never Passive exposure: Yes Smokeless tobacco: Never Tobacco comments: mom smokes outside ASSESSMENT/PLAN: 1. Sore throat - ICD9: 462, ICD10: J02.9 (primary diagnosis) - STREP A MOLECULAR (POC)-neg 2. Acute cough - ICD9: 786.2, ICD10: R05.1 - XR CHEST 2V FRONTAL/LAT * * * * Physician Interpretation * * * * EXAMINATION: CHEST RADIOGRAPH (2 VIEW FRONTAL AND LATERAL) CLINICAL HISTORY: Acute cough MQ: XC2_6 EXAM DATE/TIME: 10/30/2024 4:16 PM COMPARISON: Chest radiograph 08/21/2024 RESULT: Lines, tubes, and devices: None. Lungs and pleura: No consolidation. No lung mass. No pleural effusion. No pneumothorax. Cardiomediastinal silhouette: Normal cardiomediastinal silhouette. Bones and soft tissues: Unremarkable. IMPRESSION IMPRESSION: No acute radiographic abnormality. Sheet Metal Worker Helper: SON Transcribe Date/Time: Oct 30 2024 4:16P Dictated by : MARYAM CARRION MD - ALBUTEROL SULFATE HFA 90 MCG/ACTUATION AEROSOL INHALER - PREDNISONE 10 MG TABLET 3. URI, acute - ICD9: 465.9, ICD10: J06.9 - COVID AND INFLUENZA A/B AND RSV PCR, ROUTINE Prescription instructions reviewed with patient as applicable. Potential red flag symptoms discussed with the patient. Reviewed appropriate action plan to take if red flag symptoms occur. Patient agreeable to treatment plan. Vicky Gonzales APRN.[facility] 10-30-2024 History of Present illness Narrative CC: Patient presents with: Cough: Chest congestion, fever, bodyaches, SOB x1 day HPI: Eugene Salvador is a 18 year old male who presents to the office with complaint of chest congestion, head congestion, cough, nonproductive, and fever for the past day. Symptoms are staying the same. Associated symptoms includes body aches, wheezing, and dyspnea. Denies nausea, vomiting , and diarrhea. Treatments tried include nothing so far. with no relief of symptoms. Sick contacts: unknown. History of asthma, frequent episodes of bronchitis, chronic bronchitis, bronchiectasis or COPD: Yes asthma Smoker: No Seasonal/environmental allergies: No The ROS is otherwise negative. The patient's pmh, medications, allergies, and past visits are reviewed. PHYSICAL EXAM: BP 118/70 Pulse 110 Temp 37.3 C (99.1 F) Resp 18 Wt 68.2 kg (150 lb 5.7 oz) SpO2 97% General appearance: alert, cooperative, pleasant, in no acute distress Head: Normocephalic Eyes: EOM's intact, conjunctiva pink and moist, no icterus, sclera white, non-injected Ears: Right ear: External ear/canal- Normal, TM - clear with good landmarks. Left ear: External ear/canal- Normal, TM - clear with good landmarks Oropharynx:moderate erythema, without exudates present Heart: Negative. RRR without obvious murmur, gallop, or rubs. No ectopy. Lungs: clear to auscultation, without rales or wheeze, good air exchange PAST MEDICAL HISTORY Diagnosis Date Asthma Multiple allergies dog saliva, cat dander, pine, smoke, scented candles PAST SURGICAL HISTORY Procedure Laterality Date NONE ALLERGIES Seasonal Allergies and Smoke MEDICATIONS benzonatate (TESSALON PERLES) 100 mg capsule Take 2 capsules by mouth three times a day as needed. albuterol HFA (PROAIR HFA) 90 mcg/actuation inhaler Inhale 2 Puffs as instructed every 6 hours as needed. albuterol HFA (PROAIR HFA) 90 mcg/actuation inhaler Inhale 2 Puffs as instructed every 4 hours as needed. montelukast (SINGULAIR) 10 mg tablet Take 1 tablet by mouth daily at bedtime. fluticasone (FLOVENT HFA) 44 mcg/actuation inhaler Inhale 2 Puffs as instructed twice daily. USE WITH SPACER. rizatriptan (MAXALT) 10 mg tablet Take 1 tablet by mouth at first sign of migraine headache, may repeat in 2 hours if no improvement cetirizine HCl (ZYRTEC) 10 mg chewable tablet Take 1 tablet by mouth once daily. mometasone (ELOCON) 0.1 % cream Apply 1 application to affected area once daily. clindamycin (CLEOCIN-T) 1 % gel Apply 1 application to affected area twice daily. benzoyl peroxide (PANOXYL, DESQUAM-X, OXY-5) 5 % gel Apply 1 application to affected area once daily. albuterol HFA 90 mcg/actuation inhaler Inhale 2 Puffs as instructed every 4 hours as needed (for cough, wheezing, chest tightness or shortness of breath. Use with spacer. ). multivitamin tablet Take 1 tablet by mouth once daily. Pedi MVI No.17 with Fluoride (MULTI-VITAMIN WITH FLUORIDE) 1 mg Chew 1 tablet once a day PO albuterol 90 mcg/actuation Aero 2 puffs every 4 to 6 hours prn tight cough/wheezing Polyethylene Glycol 3350 (MIRALAX) 17 gram/dose powder 1 capful once a day for constipation FAMILY HISTORY Problem Relation Age of Onset Cancer Other Maternal side Hypertension Other Maternal side Cancer Other Paternal side Social History Tobacco Use Smoking status: Never Passive exposure: Yes Smokeless tobacco: Never Tobacco comments: mom smokes outside ASSESSMENT/PLAN: 1. Sore throat - ICD9: 462, ICD10: J02.9 (primary diagnosis) - STREP A MOLECULAR (POC)-neg 2. Acute cough - ICD9: 786.2, ICD10: R05.1 - XR CHEST 2V FRONTAL/LAT * * * * Physician Interpretation * * * * EXAMINATION: CHEST RADIOGRAPH (2 VIEW FRONTAL & LATERAL) CLINICAL HISTORY: Acute cough MQ: XC2_6 EXAM DATE/TIME: 10/30/2024 4:16 PM COMPARISON: Chest radiograph 08/21/2024 RESULT: Lines, tubes, and devices: None. Lungs and pleura: No consolidation. No lung mass. No pleural effusion. No pneumothorax. Cardiomediastinal silhouette: Normal cardiomediastinal silhouette. Bones and soft tissues: Unremarkable. IMPRESSION IMPRESSION: No acute radiographic abnormality. Sheet Metal Worker Helper: SON Transcribe Date/Time: Oct 30 2024 4:16P Dictated by : MARYAM CARRION MD - ALBUTEROL SULFATE HFA 90 MCG/ACTUATION AEROSOL INHALER - PREDNISONE 10 MG TABLET 3. URI, acute - ICD9: 465.9, ICD10: J06.9 - COVID & INFLUENZA A/B & RSV PCR, ROUTINE Prescription instructions reviewed with patient as applicable. Potential red flag symptoms discussed with the patient. Reviewed appropriate action plan to take if red flag symptoms occur. Patient agreeable to treatment plan. Vicky Gonzales APRN.[facility]ICA documented in this encounter [facility] 08-21-2024 History of Present illness Narrative Radiology Service Progress Note PATIENT NAME: Eugene Salvador DATE OF SERVICE: August 21, 2024 TIME: 12:51 PM PATIENT IDENTITY VERIFICATION COMPLETED USING TWO (2) IDENTIFIERS: Name and Date of confirmed by patient verbally. FALL SCREENING: Has the patient had 2 falls in the last year or 1 fall with injury or currently using an Ambulatory Assistive Device (Walker, Cane, Wheelchair, Crutches, etc.)? No PATIENT GENDER DATA: Male PATIENT RELEVANT IMPLANT DATA REVIEWED: Not Applicable PATIENT PRESENTS WITH AN IMPLANTABLE OR ATTACHED SALES AND CUSTOMER RELATIONS REP: No RADIOLOGY DEPARTMENT: General X-ray: Exam(s) Completed: Chest X-Ray PERIPHERAL IV DATA: Not applicable SIGNED BY: RT Estefany(R) August 21, 2024 12:51 PM documented in this encounter [facility] 08-21-2024 Note HNO ID: [id number] Author: BARRINGTON RUTH RT(R) Service: Radiology Author Type: Technologist Type: Progress Notes Filed: 08/21/2024 12:58 Note Text: Radiology Service Progress Note PATIENT NAME: Eugene Salvador DATE OF SERVICE: August 21, 2024 TIME: 12:51 PM PATIENT IDENTITY VERIFICATION COMPLETED USING TWO (2) IDENTIFIERS: Name and Date of confirmed by patient verbally. FALL SCREENING: Has the patient had 2 falls in the last year or 1 fall with injury or currently using an Ambulatory Assistive Device (Walker, Cane, Wheelchair, Crutches, etc.)? No PATIENT GENDER DATA: Male PATIENT RELEVANT IMPLANT DATA REVIEWED: Not Applicable PATIENT PRESENTS WITH AN IMPLANTABLE OR ATTACHED SALES AND CUSTOMER RELATIONS REP: No RADIOLOGY DEPARTMENT: General X-ray: Exam(s) Completed: Chest X-Ray PERIPHERAL IV DATA: Not applicable SIGNED BY: Barrington Ruth, RT(R) August 21, 2024 12:[address] [facility] 08-21-2024 Note HNO ID: [id number] Author: KRYSTAL HENSON APRN.COURIER DELIVERY DRIVER Service: ? Author Type: Nurse Practitioner Type: Progress Notes Filed: 08/21/2024 13:36 Note Text: SUBJECTIVE: Eugene Salvador is a 18 year old male. Who presents today with cough hurts to cough SOB fatigue cogestion sore throat and ear pain for the last 4 days. He has not had a fever. He has take mucinex allergy medication. He is also using his allergy medication. He is having wheezing and the medication is helping. He has not been exposed to others who are sick. His cough is the worst symptom. HPI PAST MEDICAL HISTORY Diagnosis Date Asthma Multiple allergies dog saliva, cat dander, pine, smoke, scented candles FAMILY HISTORY Problem Relation Age of Onset Cancer Other Maternal side Hypertension Other Maternal side Cancer Other Paternal side Social History Tobacco Use Smoking status: Never Passive exposure: Yes Smokeless tobacco: Never Tobacco comments: mom smokes outside ALLERGIES Allergen Reactions Seasonal Allergies Other: See Comments Dust mites trees (December, January and February) grasses (February and March) Smoke Itching Current Outpatient Medications Medication Sig Dispense Refill albuterol HFA (PROAIR HFA) 90 mcg/actuation inhaler Inhale 2 Puffs as instructed every 4 hours as needed. 18 g 5 montelukast (SINGULAIR) 10 mg tablet Take 1 tablet by mouth daily at bedtime. 30 tablet 5 fluticasone (FLOVENT HFA) 44 mcg/actuation inhaler Inhale 2 Puffs as instructed twice daily. USE WITH SPACER. 10.6 g 5 rizatriptan (MAXALT) 10 mg tablet Take 1 tablet by mouth at first sign of migraine headache, may repeat in 2 hours if no improvement 12 tablet 1 multivitamin tablet Take 1 tablet by mouth once daily. 0 benzonatate (TESSALON PERLES) 100 mg capsule Take 2 capsules by mouth three times a day as needed. 30 capsule 0 albuterol HFA (PROAIR HFA) 90 mcg/actuation inhaler Inhale 2 Puffs as instructed every 6 hours as needed. 1 Each 0 cetirizine HCl (ZYRTEC) 10 mg chewable tablet Take 1 tablet by mouth once daily. 30 tablet 5 mometasone (ELOCON) 0.1 % cream Apply 1 application to affected area once daily. 30 g 2 clindamycin (CLEOCIN-T) 1 % gel Apply 1 application to affected area twice daily. 30 g 5 benzoyl peroxide (PANOXYL, DESQUAM-X, OXY-5) 5 % gel Apply 1 application to affected area once daily. 30 g 5 albuterol HFA 90 mcg/actuation inhaler Inhale 2 Puffs as instructed every 4 hours as needed (for cough, wheezing, chest tightness or shortness of breath. Use with spacer. ). 2 Inhaler 2 Pedi MVI No.17 with Fluoride (MULTI-VITAMIN WITH FLUORIDE) 1 mg Chew 1 tablet once a day PO 100 tablet 3 albuterol 90 mcg/actuation Aero 2 puffs every 4 to 6 hours prn tight cough/wheezing 1 Inhaler 1 Polyethylene Glycol 3350 (MIRALAX) 17 gram/dose powder 1 capful once a day for constipation 1 Bottle 1 No current facility-administered medications for this visit. OBJECTIVE: BP 115/70 Pulse 92 Temp 36.2 ?C (97.2 ?F) Resp 20 Wt 69.5 kg (153 lb 3.5 oz) SpO2 98% ROS all other systems reviewed and are negative Physical Exam Constitutional: Well developed, well nourished, NAD, AANDO X3. ENT: Head is atraumatic, airway patent, mucosal membranes moist. Cardiac: Heart tone normal rate and rhythm Respiratory: Breath sounds clear : no CVA tenderness MS: no swelling, tenderness or deformity in upper or lower extremities, no midline tenderness in cervical, thoracic or lumbar spine. Neuro: strength sensation and coordination intact. CN II-XII grossly intact, Skin: warm and dry with out rash, lesion or ecchymosis on exposed skin Psych: alert appropriate, speech clear MDM It was a pleasure to take care of Eugene Salvadro today. A chest x-ray was obtained and this shows no acute cardiopulmonary process. Patient is an asthmatic he does have all of his inhalers at home and has been using those. I will give him a steroid today in concerns of an asthma flare. If he has worsening symptoms he will follow-up with his family physician or go to the emergency department if he is having trouble breathing. Patient has verbalized understanding of plan of care and is agreeable Patient will follow up with family physician. They may return to the Urgent Care or go to the ER for worsening symptoms or concerns. Patient verbalized understanding of plan of care and is in agreement. ASSESSMENT/PLAN: 1. Acute cough - ICD9: 786.2, ICD10: R05.1 (primary diagnosis) - XR CHEST 2V FRONTAL/LAT 2. Mild intermittent asthma, uncomplicated - ICD9: 493.90, ICD10: J45.20 - METHYLPREDNISOLONE 4 MG TABLETS IN A DOSE PACK 3. Fatigue, unspecified type - ICD9: 780.79, ICD10: R53.83 Krystal Henson APRN.[facility] 08-21-2024 History of Present illness Narrative SUBJECTIVE: Eugene Salvador is a 18 year old male. Who presents today with cough hurts to cough SOB fatigue cogestion sore throat and ear pain for the last 4 days. He has not had a fever. He has take mucinex allergy medication. He is also using his allergy medication. He is having wheezing and the medication is helping. He has not been exposed to others who are sick. His cough is the worst symptom. HPI PAST MEDICAL HISTORY Diagnosis Date Asthma Multiple allergies dog saliva, cat dander, pine, smoke, scented candles FAMILY HISTORY Problem Relation Age of Onset Cancer Other Maternal side Hypertension Other Maternal side Cancer Other Paternal side Social History Tobacco Use Smoking status: Never Passive exposure: Yes Smokeless tobacco: Never Tobacco comments: mom smokes outside ALLERGIES Allergen Reactions Seasonal Allergies Other: See Comments Dust mites trees (December, January and February) grasses (February and March) Smoke Itching Current Outpatient Medications Medication Sig Dispense Refill albuterol HFA (PROAIR HFA) 90 mcg/actuation inhaler Inhale 2 Puffs as instructed every 4 hours as needed. 18 g 5 montelukast (SINGULAIR) 10 mg tablet Take 1 tablet by mouth daily at bedtime. 30 tablet 5 fluticasone (FLOVENT HFA) 44 mcg/actuation inhaler Inhale 2 Puffs as instructed twice daily. USE WITH SPACER. 10.6 g 5 rizatriptan (MAXALT) 10 mg tablet Take 1 tablet by mouth at first sign of migraine headache, may repeat in 2 hours if no improvement 12 tablet 1 multivitamin tablet Take 1 tablet by mouth once daily. 0 benzonatate (TESSALON PERLES) 100 mg capsule Take 2 capsules by mouth three times a day as needed. 30 capsule 0 albuterol HFA (PROAIR HFA) 90 mcg/actuation inhaler Inhale 2 Puffs as instructed every 6 hours as needed. 1 Each 0 cetirizine HCl (ZYRTEC) 10 mg chewable tablet Take 1 tablet by mouth once daily. 30 tablet 5 mometasone (ELOCON) 0.1 % cream Apply 1 application to affected area once daily. 30 g 2 clindamycin (CLEOCIN-T) 1 % gel Apply 1 application to affected area twice daily. 30 g 5 benzoyl peroxide (PANOXYL, DESQUAM-X, OXY-5) 5 % gel Apply 1 application to affected area once daily. 30 g 5 albuterol HFA 90 mcg/actuation inhaler Inhale 2 Puffs as instructed every 4 hours as needed (for cough, wheezing, chest tightness or shortness of breath. Use with spacer. ). 2 Inhaler 2 Pedi MVI No.17 with Fluoride (MULTI-VITAMIN WITH FLUORIDE) 1 mg Chew 1 tablet once a day PO 100 tablet 3 albuterol 90 mcg/actuation Aero 2 puffs every 4 to 6 hours prn tight cough/wheezing 1 Inhaler 1 Polyethylene Glycol 3350 (MIRALAX) 17 gram/dose powder 1 capful once a day for constipation 1 Bottle 1 No current facility-administered medications for this visit. OBJECTIVE: BP 115/70 Pulse 92 Temp 36.2 C (97.2 F) Resp 20 Wt 69.5 kg (153 lb 3.5 oz) SpO2 98% ROS all other systems reviewed and are negative Physical Exam Constitutional: Well developed, well nourished, NAD, A&O X3. ENT: Head is atraumatic, airway patent, mucosal membranes moist. Cardiac: Heart tone normal rate and rhythm Respiratory: Breath sounds clear : no CVA tenderness MS: no swelling, tenderness or deformity in upper or lower extremities, no midline tenderness in cervical, thoracic or lumbar spine. Neuro: strength sensation and coordination intact. CN II-XII grossly intact, Skin: warm and dry with out rash, lesion or ecchymosis on exposed skin Psych: alert appropriate, speech clear MDM It was a pleasure to take care of Eugene Salvador today. A chest x-ray was obtained and this shows no acute cardiopulmonary process. Patient is an asthmatic he does have all of his inhalers at home and has been using those. I will give him a steroid today in concerns of an asthma flare. If he has worsening symptoms he will follow-up with his family physician or go to the emergency department if he is having trouble breathing. Patient has verbalized understanding of plan of care and is agreeable Patient will follow up with family physician. They may return to the Urgent Care or go to the ER for worsening symptoms or concerns. Patient verbalized understanding of plan of care and is in agreement. ASSESSMENT/PLAN: 1. Acute cough - ICD9: 786.2, ICD10: R05.1 (primary diagnosis) - XR CHEST 2V FRONTAL/LAT 2. Mild intermittent asthma, uncomplicated - ICD9: 493.90, ICD10: J45.20 - METHYLPREDNISOLONE 4 MG TABLETS IN A DOSE PACK 3. Fatigue, unspecified type - ICD9: 780.79, ICD10: R53.83 Krystal Henson APRN.COURIER DELIVERY DRIVER documented in this encounter [facility] 06-16-2024 Note [facility] CONSULTATION REPORT NAME ACCOUNT SEX AGE ADMIT DISCHARGE PT MED. RECORD# NUMBER DATE DATE TYPE MADELEINE [id number] [place] 18 04/21/2024 1 EUGENE Garcia [id number] ROOM: [id number] DATE OF : 2005 DICTATING PHYSICIAN: Kiera Renee DATE OF CONSULTATION: April 22, 2024 CONSULTING PHYSICIAN: Dr. Zheng Wilcox REASON FOR CONSULTATION: Antibiotic management. HISTORY OF PRESENT ILLNESS: This is a 18-year-old gentleman who presented to the emergency room with nail injury to the left knee. The patient was at work. He was using a nail gun utilizing 3-inch big nails, and the nail went through the lateral aspect of his knee penetrating to the knee joint. The nail then was removed in the emergency room. Orthopedics was consulted, and based on evaluation they did eventually really try to reduce the risk of further infection since it definitely penetrated to the joint. The case was discussed between me and Dr. Zheng Wilcox. At that time, the recommendation was to proceed with cleaning of the knee completely, and then to use preventative antibiotics. This course will consist mainly of Zosyn 3.375 grams every 6 hours for 48 hours followed by 5 days of Augmentin. The patient was agreeable with the plan. He underwent surgery, and he did very well post-cleaning. Now, he is on Zosyn. When I saw the patient, he was feeling better. He did not have much pain. He described to me how the accident happened, and otherwise is doing okay. The patient is healthy. PAST MEDICAL HISTORY: Remarkable for asthma. PAST SURGICAL HISTORY: Tonsillectomy. CURRENT MEDICATIONS: Medications at home is just an inhaler as needed. ALLERGIES: No allergies. FAMILY HISTORY: His mother had breast cancer treated. 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 REVIEW OF SYSTEMS: The patient denied fever, chills, or night sweats. No headache, blurry vision, earache, or sore throat. No neck pain, chest pain, shortness of breath, cough, or phlegm production. No abdominal pain, diarrhea, or constipation. No difficulty with urination. PHYSICAL EXAMINATION: GENERAL APPEARANCE: This is a 18-year-old healthy gentleman. VITAL SIGNS: Temperature of 98.4, blood pressure 135/49. His saturation is 96 on room air. HEENT: Unremarkable. NECK: Neck is supple. LUNGS: Lungs are clear. HEART: The heart was regular. ABDOMEN: Soft. EXTREMITIES: Extremities revealed no edema. The left knee is in a surgical dressing. DIAGNOSTIC DATA: Laboratory data today revealed a white count of 12.6, slight left shift. ASSESSMENT: 1. 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 2. Combination of antibiotics at this point may not be necessary. I did recommend using one dose of vancomycin initially. When I interviewed the patient, he does not have any drug abuse history. No significant exposure to make him at risk for Methicillin-resistant Staphylococcus aureus colonization. I did explain to him this is a very low likelihood. I did explain to him most of those infections related to this are usually an organism living in soil, which is usually a combination of gram-negatives and gram-positives, as well as anaerobes, which all can be covered by Zosyn. RECOMMENDATIONS: The patient will be treated now with Zosyn for 48 hours followed by Augmentin 500 mg/125 three times a day with meals for an additional 5 days. I did explain to the patient that this will reduce his risk of secondary infection to the most possible, but it does not eliminate it completely. He understood those facts. Dictated By: Kiera Renee MD 04/22/2024 14:47 JOB #: [id number] Transcribed By: desirae 04/23/2024 09:32 Electronically signed by: E-Sign: KIERA RENEE MD 06/16/24 16:05 Page 2 of 3 EUGENE SALVADOR Stock Shaper Report EUGENE SALVADOR : 2005 Page 3 of 3 EUGENE SALVADOR Stock Shaper Report [facility] 06-02-2024 Note [facility] DISCHARGE SUMMARY NAME ACCOUNT SEX AGE ADMIT DISCHARGE PT MED. RECORD# NUMBER DATE TYPE MADELEINE [id number] [place] 04/21/24 04/23/24 1 EUGENE Garcia [id number] ROOM: 310 DATE OF : 2005 ATTENDING PHYSICIAN: Gretchen Mendez ADMITTING DIAGNOSIS: Left knee puncture wound, possible traumatic arthrotomy. FINAL DIAGNOSES: 1. Left knee puncture wound, possible traumatic arthrotomy. 2. Status post irrigation, debridement, and left knee arthroscopy. HOSPITAL COURSE: This is a 18-year-old male who was at work on the date of April 21, 2024, and experienced a nail gun injury to the left knee probably consistent with traumatic arthrotomy. He was taken to the operating room that same day and underwent left knee arthroscopy with irrigation and debridement. He was given IV antibiotics, and intraoperatively was uneventful. For details, please see dictated operative report. He was transferred to Medical Surgical Unit. His stay was uneventful. He received IV antibiotics. MEDICATIONS ON DISCHARGE: He was given prescriptions for both aspirin for DVT prophylaxis and [place] for pain control. DISCHARGE INSTRUCTIONS/PLAN: He was discharged on April 23, 2024 to home in stable condition. He was recommended to follow-up with orthopedic on May 02, 2024. Dictated By: Gretchen Mendez PA-C 05/26/24 10:30 JOB #: [id number] Transcribed By: am 05/26/24 10:51 Electronically signed by: E-sign Gretchen ESPINOZA 06/02/24 07:24 Page 1 of 1 EUGENE SALVADOR Discharge Summary [facility] 05-02-2024 Note [facility] PROGRESS NOTE NAME ACCOUNT SEX AGE ADMIT DISCHARGE PT MED. RECORD# NUMBER DATE DATE TYPE MADELEINE [id number] [place] 18 04/21/24 1 EUGENE D [id number] ROOM: [facility] DATE OF : 2005 DICTATING PHYSICIAN: Zheng Wilcox DATE OF SERVICE: April 22, 2024 CHIEF COMPLAINT: Left knee injury. SUBJECTIVE: The patient is postoperative day #1 from a left knee nail gun injury with irrigation and debridement arthroscopically. He states his knee is feeling much better. He denies any chest pain or discomfort. He denies fever or chills. He is hoping for discharge to home soon. OBJECTIVE: On physical examination, vital signs and laboratory work reviewed in the chart. His left knee is examined. He has a small left knee effusion. No significant pain at the thigh or calf. He is able to easily do a straight leg raise. Left knee motion is 0 to 90 degrees. Leg is neurovascularly intact. No signs of DVT. DIAGNOSTIC DATA: Culture results left knee are pending. ASSESSMENT: 1. Left knee nail gun injury with possible traumatic arthrotomy. 2. History of tobacco use. PLAN: Treatment options were discussed with the patient and his family at length. He will continue on IV antibiotics per the Infectious Disease service. Most likely, he will be switched to orals tomorrow and discharged to home. He will use [place] for pain if needed. He will follow up in the office in 7 to 10 days for further evaluation and treatment. He understands to be weightbearing as tolerated, range of motion, and avoid rough or painful activity. Risk of recurrent infections was explained. He will be on aspirin 81 mg twice a day for deep venous thrombosis prevention. The case was discussed with the Infectious Disease Service. Dictated By: Zheng Wilcox MD 04/22/24 12:33 JOB #: [id number] Transcribed By: am 04/22/24 13:11 Electronically signed by: E-SIGN DR. ZHENG WILCOX M.D. Page 1 of 2 EUGENE SALVADOR Progress Note EUGENE SALVADOR : 2005 05/02/24 12:06 Page 2 of 2 EUGENE SALVADOR Progress Note [facility] 04-29-2024 Note . MICRO - Microbiology PROCEDURE: Culture Wound Deep Aerobe/Anaerobe w Gram Stain [*1] SOURCE: Wound (deep) BODY SITE: Knee L COLLECTED DATE/TIME: 04/21/2024 08:08 EDT RECEIVED DATE/TIME: 04/22/2024 17:00 EDT START DATE/TIME: 04/23/2024 08:10 EDT FREE TEXT SOURCE: tramatic injury surgery specimen FINAL REPORTS Final Report [] Verified Date/Time/Personnel: 04/29/2024 07:46 EDT No aerobes or anaerobes isolated at 7 days. PRELIMINARY REPORTS Preliminary Report [] Verified Date/Time/Personnel: 04/23/2024 09:38 EDT No growth to date STAINS GS [] Verified Date/Time/Personnel: 04/23/2024 09:38 EDT No organisms seen. Performing Locations *1: This test was performed at: [address], [facility] 04-22-2024 Note [facility] HISTORY & PHYSICAL NAME ACCOUNT SEX AGE ADMIT DISCHARGE PT MED. RECORD# NUMBER DATE DATE TYPE MADELEINE [id number] [place] 18 04/21/24 2 EUGENE Garcia [id number] ROOM: [facility] DATE OF : [birth year] DICTATING PHYSICIAN: Zheng Wilcox CHIEF COMPLAINT: Left knee injury. REQUESTING PHYSICIAN: Dr. Huggins. HISTORY OF PRESENT ILLNESS: The patient is a 18-year-old male who was at work earlier today. He sustained a nail gun injury to the lateral aspect of his knee. The patient was seen and treated in the Emergency Room. The ER doctor removed the nail. Orthopedics was consulted. Orthopedics evaluated him in the Emergency Room. The patient did have an injection test done that did not lead to positive findings. We planned to do a CT scan for further diagnostic purposes, but we were not able to do so because the CT scanner is currently being repaired. After giving the family the risks, benefits and alternative procedures as far as treatment for this, they did wish to proceed with surgical intervention. The case was also discussed with Dr. Cuba, one of my associates, who was in much agreement with surgical intervention. PAST MEDICAL HISTORY: Consistent with asthma. PAST SURGICAL HISTORY: Tonsillectomy with no complications. MEDICATIONS: Current medications include an asthma inhaler used as needed only. ALLERGIES: No known drug allergies. FAMILY HISTORY: The patient's mother has had cancer, which has been treated. SOCIAL HISTORY: The patient does use chewing tobacco as well as he does some vaping. He denies any significant alcohol use or other illicit drug use. REVIEW OF SYSTEMS: He denies any problems with his eyes, ears, nose, throat, heart, lungs, or bowel or bladder function other than above. PHYSICAL EXAMINATION GENERAL APPEARANCE: He is a healthy-appearing male, alert, oriented x3, cooperative with examination, and pleasant with examination. He is seen with his mother present. The patient does have a puncture site at the lateral part of the left knee. HEENT: Normocephalic and nontender. Pupils are equal, round, and reactive. Nose Page 1 of 3 EUGENE SALVADOR History & Physical EUGENE SALVADOR :2005 and throat are clear. NECK: Supple. No JVD. No carotid bruits. LUNGS: Clear to auscultation. HEART: Regular rate and rhythm. Normal S1 and S2. ABDOMEN: Soft and nontender. Positive bowel sounds. EXTREMITIES: Left knee motion is 0-40 degrees. The left knee has no obvious effusion. Again, a puncture site is noted to the superolateral knee. He is painful with trying to do a straight leg raise. He has pain on palpation mostly lateral, but he does have pain on palpation along the medial joint line as well. DIAGNOSTIC DATA: X-rays, AP and lateral, of the left knee show a metallic nail involving the left part of the knee joint. It starts superior to the patella and extends down to the tibia. IMPRESSION: Traumatic nail gun injury to the left knee region with possible traumatic arthrotomy. PLAN: Treatment options were discussed with the patient and his family at length. After explaining the risks, benefits and alternative procedures, he did wish to have an injection test done. We explained the injection test would be uncomfortable and is not 100% accurate. We explained a CT scan may also give us some information, but CT scan was not readily available at that point. It was decided to proceed with the injection test. PROCEDURE: After obtaining appropriate consent, the patient's left knee was prepped with Betadine and alcohol. I anesthetized the area at the superomedial knee with 5 mL of 1% lidocaine plain. After adequate anesthesia, the area was cleaned again with alcohol and Betadine. I used an 18-gauge needle and injected the knee with a sterile saline load with methylene blue in it. Approximately 150 mL were ultimately placed in his joint. He would flex and extend the knee afterwards, and no definitive fluid was coming out of the traumatic site. Even with gentle pressure from medial to lateral we were not able to get any definitive methylene blue fluid out of the puncture site. At this point, a needle was used to remove as much fluid as possible from the procedure. At this point, we were considering a CT scan for further diagnostic purposes. However, at this point we were made aware that the CT scan was being repaired and would not be available for several hours. We did discuss transferring him to another hospital, and ultimately it was decided to proceed with surgical intervention at [facility]. The risks of surgery including but not limited to from operative or postoperative complications, possibility of damaged nerves, arteries or tendons, possibility of infection that can be limb or life-threatening and possible need for multiple surgeries, as well as Page 2 of 3 EUGENE SALVADOR History & (more content not included)... [facility] 12-05-2023 History of Present illness Narrative This note was created using utoopiariter. Subjective Eugene Garcia Madeleine is a 18 year old male. HPI Presents with a chief complaint of fever, cough, congestion, body aches and shortness of breath for 2 days. Denies vomiting or diarrhea. Siblings recently had mono. He is out of his albuterol inhaler has a history of asthma. Denies chest pain. No home covid test done. Review of Systems Constitutional: Positive for chills, fatigue and fever. HENT: Positive for congestion, rhinorrhea and sore throat. Negative for ear pain. Respiratory: Positive for cough, shortness of breath and wheezing. Cardiovascular: Negative. Gastrointestinal: Negative. Genitourinary: Negative. Musculoskeletal: Positive for myalgias. Neurological: Positive for headaches. All other systems reviewed and are negative. PAST MEDICAL HISTORY Diagnosis Date Asthma Multiple allergies dog saliva, cat dander, pine, smoke, scented candles Current Outpatient Medications Medication Sig Dispense Refill albuterol HFA (PROAIR HFA) 90 mcg/actuation inhaler Inhale 2 Puffs as instructed every 4 hours as needed. 18 g 5 montelukast (SINGULAIR) 10 mg tablet Take 1 tablet by mouth daily at bedtime. 30 tablet 5 fluticasone (FLOVENT HFA) 44 mcg/actuation inhaler Inhale 2 Puffs as instructed twice daily. USE WITH SPACER. 10.6 g 5 rizatriptan (MAXALT) 10 mg tablet Take 1 tablet by mouth at first sign of migraine headache, may repeat in 2 hours if no improvement 12 tablet 1 multivitamin tablet Take 1 tablet by mouth once daily. 0 oseltamivir (TAMIFLU) 75 mg capsule Take 1 capsule by mouth two times a day for 5 days. 10 capsule 0 benzonatate (TESSALON PERLES) 100 mg capsule Take 2 capsules by mouth three times a day as needed. 30 capsule 0 albuterol HFA (PROAIR HFA) 90 mcg/actuation inhaler Inhale 2 Puffs as instructed every 6 hours as needed. 1 Each 0 cetirizine HCl (ZYRTEC) 10 mg chewable tablet Take 1 tablet by mouth once daily. (Patient not taking: No sig reported) 30 tablet 5 mometasone (ELOCON) 0.1 % cream Apply 1 application to affected area once daily. (Patient not taking: No sig reported) 30 g 2 clindamycin (CLEOCIN-T) 1 % gel Apply 1 application to affected area twice daily. (Patient not taking: No sig reported) 30 g 5 benzoyl peroxide (PANOXYL, DESQUAM-X, OXY-5) 5 % gel Apply 1 application to affected area once daily. (Patient not taking: No sig reported) 30 g 5 albuterol HFA 90 mcg/actuation inhaler Inhale 2 Puffs as instructed every 4 hours as needed (for cough, wheezing, chest tightness or shortness of breath. Use with spacer. ). (Patient not taking: No sig reported) 2 Inhaler 2 Pedi MVI No.17 with Fluoride (MULTI-VITAMIN WITH FLUORIDE) 1 mg Chew 1 tablet once a day PO (Patient not taking: No sig reported) 100 tablet 3 albuterol 90 mcg/actuation Aero 2 puffs every 4 to 6 hours prn tight cough/wheezing (Patient not taking: No sig reported) 1 Inhaler 1 Polyethylene Glycol 3350 (MIRALAX) 17 gram/dose powder 1 capful once a day for constipation (Patient not taking: No sig reported) 1 Bottle 1 No current facility-administered medications for this visit. PAST SURGICAL HISTORY Procedure Laterality Date NONE FAMILY HISTORY Problem Relation Age of Onset Cancer Other Maternal side Hypertension Other Maternal side Cancer Other Paternal side Social History Tobacco Use Smoking status: Never Passive exposure: Yes Smokeless tobacco: Never Tobacco comments: mom smokes outside Objective BP 122/78 Pulse 116 Temp 37.4 C (99.4 F) (Tympanic) Wt 69.9 kg (154 lb) SpO2 97% Physical Exam Vitals reviewed. Constitutional: Appearance: Normal appearance. HENT: Head: Normocephalic and atraumatic. Right Ear: Tympanic membrane, ear canal and external ear normal. Left Ear: Tympanic membrane, ear canal and external ear normal. Nose: Congestion present. Mouth/Throat: Mouth: Mucous membranes are moist. Pharynx: Oropharynx is clear. Cardiovascular: Rate and Rhythm: Normal rate and regular rhythm. Heart sounds: Normal heart sounds. Pulmonary: Effort: Pulmonary effort is normal. Breath sounds: Normal breath sounds. Musculoskeletal: Cervical back: Neck supple. Skin: General: Skin is warm and dry. Neurological: General: No focal deficit present. Mental Status: He is alert. Assessment and Plan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 05/13/[address] [facility] DATE CREATED AUTHOR AUTHOR'S ORGANIZ ATION 05/19/2025 [facility] Goals (unrecognized section and content) Goals may be documented in a n alternate sectionGoals may be documented in an alternate sectionGoals may be documented in an alternate section Source Comments (unrecognize d section and content) In the event this informatio n is protected by the Federal Confidentiality of Alcohol and Drug Abuse Patient Records regulations: The Federal rules restrict any use of the information to criminally investigate or prosecute any alcohol or drug abuse patient.[facility] the event this information is protected by the Federal Confidentiality of Alcohol and Drug Abuse Patient Records regulations: The Federal rules restrict any use of the information to criminally investigate or prosecute any alcohol or drug abuse patient.[facility] the event this information is protected by the Federal Confidentiality of Alcohol and Drug Abuse Patient Records regulations: The Federal rules restrict any use of the information to criminally investigate or prosecute any alcohol or drug abuse patient.[facility] the event this information is protected by the Federal Confidentiality of Alcohol and Drug Abuse Patient Records regulations: The Federal rules restrict any use of the information to criminally investigate or prosecute any alcohol or drug abuse patient.[facility] the event this information is protected by the Federal Confidentiality of Alcohol and Drug Abuse Patient Records regulations: The Federal rules restrict any use of the information to criminally investigate or prosecute any alcohol or drug abuse patient.[facility] the event this information is protected by the Federal Confidentiality of Alcohol and Drug Abuse Patient Records regulations: The Federal rules restrict any use of the information to criminally investigate or prosecute any alcohol or drug abuse patient.[facility] the event this information is protected by the Federal Confidentiality of Alcohol and Drug Abuse Patient Records regulations: The Federal rules restrict any use of the information to criminally investigate or prosecute any alcohol or drug abuse patient.[facility] the event this information is protected by the Federal Confidentiality of Alcohol and Drug Abuse Patient Records regulations: The Federal rules restrict any use of the information to criminally investigate or prosecute any alcohol or drug abuse patient.[facility] the event this information is protected by the Federal Confidentiality of Alcohol and Drug Abuse Patient Records regulations: The Federal rules restrict any use of the information to criminally investigate or prosecute any alcohol or drug abuse patient.[facility] the event this information is protected by the Federal Confidentiality of Alcohol and Drug Abuse Patient Records regulations: The Federal rules restrict any use of the information to criminally investigate or prosecute any alcohol or drug abuse patient.[facility] the event this information is protected by the Federal Confidentiality of Alcohol and Drug Abuse Patient Records regulations: The Federal rules restrict any use of the information to criminally investigate or prosecute any alcohol or drug abuse patient.[facility] the event this information is protected by the Federal Confidentiality of Alcohol and Drug Abuse Patient Records regulations: The Federal rules restrict any use of the information to criminally investigate or prosecute any alcohol or drug abuse patient.[facility] the event this information is protected by the Federal Confidentiality of Alcohol and Drug Abuse Patient Records regulations: The Federal rules restrict any use of the information to criminally investigate or prosecute any alcohol or drug abuse patient.[facility] the event this information is protected by the Federal Confidentiality of Alcohol and Drug Abuse Patient Records regulations: The Federal rules restrict any use of the information to criminally investigate or prosecute any alcohol or drug abuse patient.[facility] the event this information is protected by the Federal Confidentiality of Alcohol and Drug Abuse Patient Records regulations: The Federal rules restrict any use of the information to criminally investigate or prosecute any alcohol or drug abuse patient.[facility] the event this information is protected by the Federal Confidentiality of Alcohol and Drug Abuse Patient Records regulations: The Federal rules restrict any use of the information to criminally investigate or prosecute any alcohol or drug abuse patient.[facility] the event this information is protected by the Federal Confidentiality of Alcohol and Drug Abuse Patient Records regulations: The Federal rules restrict any use of the information to criminally investigate or prosecute any alcohol or drug abuse patient.[facility] the event this information is protected by the Federal Confidentiality of Alcohol and Drug Abuse Patient Records regulations: The Federal rules restrict any use of the information to criminally investigate or prosecute any alcohol or drug abuse patient.[facility] Hospital[facility] the event this information is protected by the Federal Confidentiality of Alcohol and Drug Abuse Patient Records regulations: The Federal rules restrict any use of the information to criminally investigate or prosecute any alcohol or drug abuse patient.[facility] Reason for Visit (unrecogniz ed section and content) Reason Comments Sore Throat Feverish, runny nose , cough, body aches x last night Reason Onset Date Comments Refill Request 08/07/2022 Reason Comments Medication Follow-up Headache Fall On 09/03 Reason Comments Results Reason Comments Refill Request Reason Comments Cough Cough, chest congest ion, fever, nasal congestion and SOB x 2 days Reason Comments Cough Chest congestion, ch est discomfort, SOB, wheeze fatigue, increasing at HS, x 4 days Specialty Diagnoses / Procedures Referred By Contshayan t Referred To Contact [facility] Diagnoses Cough, chest pain, SOB, fatigue, chest congestion X 2 days ; Patient has asthma Procedures EST SAME DAY Self Express [facility] [address] [place] [address] Referral ID Status Reason Start Date Expiration Date Visits Requested Visits Authorized [id number] Outside PCP Financial Clearance Required - Self Pay 4 11/19/2024 1 1 Reason Comments Cough Chest congestion, fe fahad, bodyaches, SOB x1 day Reason Onset Date Comments Refill Request 01/24/2025 Reason Comments Yearly Exam Reason Onset Date Comments Results 02/13/2025 Reason Comments Med Change Request Reason Comments Sore Throat ST, cough and bodyac hes x 3 days Care Teams (unrecognized sec tion and content) Tooth Clerk Relationship Specialty Start Date End Date René Baker MD [address] [place], [place] [id number] PCP - General Family Practice 02/18/19 Tooth Clerk Relationship Specialty Start Date End Date René Baker MD [address] [place], [place] [phone] PCP - General Family Medicine 02/18/19 Tooth Clerk Relationship Specialty Start Date End Date René Baker MD [address] [place], [place] [id number] [phone] PCP - General Family Medicine 02/18/19 Tooth Clerk Relationship Specialty Start Date End Date René Baker MD [address] [place], [place] [id number] [phone] PCP - General Family Medicine 02/18/19 Tooth Clerk Relationship Specialty Start Date End Date René Baker MD [address] [place] [address] PCP - General Family Medicine 02/18/19 Tooth Clerk Relationship Specialty Start Date End Date René Baker MD [address] [place] [address] PCP - General Family Medicine 02/18/19 Tooth Clerk Relationship Specialty Start Date End Date René Baker MD [address] [place] [address] PCP - General Family Medicine 02/18/19 Team Status: Active Member Role Status Dates Dr. Pooja Ding MD Family Provider Active Dr. Pooja Ding MD Primary Care Provider Active Team Status: Inactive Member Role Status Dates Dr. Pooja Ding MD Primary Care Provider Active Dr. Jimmy Jensen DO Emergency Provider Active Tooth Clerk Relationship Specialty Start Date End Date René Baker MD [address] [place] [address] PCP - General Family Medicine 02/18/19 Tooth Clerk Relationship Specialty Start Date End Date René Baker MD [address] [place] [address] PCP - General Family Medicine 02/18/19 Tooth Clerk Relationship Specialty Start Date End Date René Baker MD [address] [place] [address] PCP - General Family Medicine 02/18/19 Tooth Clerk Relationship Specialty Start Date End Date René Baker MD [address] [place] [address] PCP - General Family Medicine 02/18/19 Yenni Ramey, LEBRON.COURIER DELIVERY DRIVER [address] [place] [address] Mysql Developer Family Medicine 10/04/24 Dori Black PA-C [address] [facility] [place] [address] Mysql Developer Family Medicine 10/04/24 Tooth Clerk Relationship Specialty Start Date End Date René Baker MD [address] [place] [address] PCP - General Family Medicine 02/18/19 Yenni Ramey, LEBRON.COURIER DELIVERY DRIVER [address] [place] [address] Mysql Developer Family Medicine 10/04/24 Dori Black PA-C [address] [facility] [place] [address] Mysql Developer Family Medicine 10/04/24 Tooth Clerk Relationship Specialty Start Date End Date René Baker MD [address] [place] [address] PCP - General Family Medicine 02/18/19 Yenni Ramey, FRETTED INSTRUMENT INSPECTOR.COURIER DELIVERY DRIVER [address] [place] [address] Mysql Developer Family Medicine 10/04/24 Dori Black PA-C [address] [facility] [place] [address] Mysql Developer Family Medicine 10/04/24 Tooth Clerk Relationship Specialty Start Date End Date René Baker MD [address] [place] [address] PCP - General Family Medicine 02/18/19 Yenni Ramey, LEBRON.COURIER DELIVERY DRIVER [address] [place] [address] Mysql Developer Family Medicine 10/04/24 Dori Black PA-C [address] [place] [address] Mysql Developer Family Medicine 10/04/24 Tooth Clerk Relationship Specialty Start Date End Date René Baker MD [address] [place] [address] PCP - General Family Medicine 02/18/19 Yenni Ramey, FRETTED INSTRUMENT INSPECTOR.COURIER DELIVERY DRIVER [address] [place] [address] Mysql Developer Family Medicine 10/04/24 Dori Black PA-C [address] [place] [address] Mysql Developer Family Medicine 10/04/24 Tooth Clerk Relationship Specialty Start Date End Date René Baker MD [address] [place] [address] PCP - General Family Medicine 02/18/19 Yenni Ramey, FRETTED INSTRUMENT INSPECTOR.COURIER DELIVERY DRIVER [address] [place] [address] Mysql Developer Family Medicine 10/04/24 Dori Black PA-C [address] [place] [address] Mysql Developer Family Medicine 10/04/24 Tooth Clerk Relationship Specialty Start Date End Date René Baker MD [address] [facility] [place] [address] PCP - General Family Medicine 02/18/19 Yenni Ramey APRN.COURIER DELIVERY DRIVER [address] [place] [address] Mysql Developer Family Medicine 10/04/24 Dori Black PA-C [address] [place] [address] [facility] 10/04/24 Tooth Clerk Relationship Specialty Start Date End Date René Baker MD [address] [place] [address] PCP - General Family Medicine 02/18/19 Yenni Ramey APRN.COURIER DELIVERY DRIVER [address] [place] [address] Mysql Developer Family Medicine 10/04/24 Dori Black PA-C [address] [place] [address] Mysql Developer Family Medicine 10/04/24 Tooth Clerk Relationship Specialty Start Date End Date René Baker MD [address] [place] [address] PCP - General Family Medicine 02/18/19 Yenni Ramey APRN.COURIER DELIVERY DRIVER [address] [place] [address] Mysql Developer Family Medicine 03/30/25 Dori Black PA-C [address] [place] [address] Mysql Developer Family Medicine 03/30/25 Team Status: Active Member Role/Relationship Status Dates Dr. Pooja Ding MD Primary Care Provider Active Team Status: Inactive Member Role/Relationship Status Dates Dr. Pooja Ding MD Primary Care Provider Active Start: May 12, 2025 End: May 12, 2025 Dr. Johan Acevedo DO Emergency Provider Activ e Start: May 12, 2025 End: May 12, 2025 FOR RECORDS PERTAINING TO PATIENTS WHO ARE OR HAVE BEEN ENROLLED IN A CHEMICAL DEPENDENCY/SUBSTANCEABUSE PROGRAM, SOME INFORMATION MAY BE OMITTED. This clinical summary was aggregated from multiple sources. Caution should be exercised in using it in the provision of clinical care. This summary normalizes information from multiple sources, and as a consequence, information in this document may materially change the coding, format and clinical context of patient data. In addition, data may be omitted in some cases. CLINICAL DECISIONS SHOULD BE BASED ON THE PRIMARY CLINICAL RECORDS. [employer] provides no warranty or guarantee of the accuracy or completeness of information in this document.
[2025-05-23 22:22] VITALS: PULSE 98; RESP 18; O2SAT 97
== END 2025-05-23 22:23 | disposition home or self-care (01) ==
PROVIDERS: Emergency Provider Emergency Medicine; PCP Pediatrics; Visit Provider Emergency Medicine
DX: S09.90XA Unspecified injury of head, initial encounter (principal); J45.909 Unspecified asthma, uncomplicated; F17.290 Nicotine dependence, other tobacco product, uncomplicated; H57.9 Unspecified disorder of eye and adnexa; W14.XXXA Fall from tree, initial encounter
CPT/HCPCS: 70450; 70486; 72125; 99282

== ENCOUNTER 2025-08-14 19:41 | Emergency (ER) | payer BC, SELFPAY ==
[2025-08-14 19:41] VITALS: BP 159/137; PULSE 87; RESP 18; TEMP 36.8; O2SAT 97; BMI 23.9
[2025-08-14 20:41] VITALS: BP 149/91; PULSE 89; RESP 16; O2SAT 98
--- NOTE | 2025-08-14 21:15 | US_ITS ---
PROCEDURE: US TESTICULAR WITH ARTERIAL FLOW 08/14/2025 REASON FOR EXAM: RIGHT TESTICLE PAIN. TECHNIQUE: Procedure Code: USTES Modality: US Procedure: TESTICULAR WITH ARTERIAL FLOW COMPARISON: None. FINDINGS: Bilateral testes appear normal in size. Right testicle measures 4.1 x 2.4 x 2.4 cm. Left testicle measures 4 x 2.7 x 1.8 cm. No mass lesion. There is heterogeneous echogenicity of the right testicular parenchyma, with asymmetric hypervascularity on color Doppler, suggesting orchitis. Homogeneous parenchymal echogenicity of the left testicle. There is no evidence of torsion. There is also somewhat heterogeneous echogenicity of the right epididymis, which may reflect associated epididymitis. Left epididymis appears normal, aside from a small 5 mm epididymal head cyst. Normal physiologic amount of fluid around both testes. No evidence of varicocele. US/Testicular with Arterial Flow IMPRESSION: Findings suggestive of right epididymo-orchitis. No evidence of torsion. Reading Location: [id number]
--- NOTE | 2025-08-14 21:17 | EX.ED.GUMALE ---
HPI History of Present Illness Chief Complaint: Male Pain/Injury Informant: patient Pain Onset: Days Context: Gradual Onset Timing: Continuous Current Severity: Mild Maximum Severity: Mild Narrative Narrative: 19-year-old male no past medical history other than asthma. Complaining of right testicle pain since Sunday. Denies any fall injury or trauma. No hematuria no dysuria. No discharge. No prior history of this. Prior similar symptoms: No Recent Illness/Hospitalization: No PFSH PFSH Medical History Asthma Home Medications ?Medication ?Instructions ?Recorded ?Last Taken ?Type albuterol sulfate 2.5 mg/3 mL 2.5 mg inhalation Q6H 10/03/21 Unknown History (0.083 %) solution for nebulization budesonide 0.25 mg/2 mL suspension 0.25 mg inhalation BID 10/03/21 Unknown History for nebulization (Pulmicort) cetirizine 10 mg tablet (Zyrtec) 10 mg PO DAILY 10/03/21 Unknown History albuterol sulfate 2.5 mg/3 mL 2.5 mg (3 mL) inhalation Q4H PRN 05/12/25 Unknown Rx (0.083 %) solution for nebulization #25 vials doxycycline hyclate 100 mg capsule 100 mg PO BID 10 days #20 caps 08/14/25 Unknown Rx Allergy/AdvReac Type Severity Reaction Status Date / Time No Known Allergies Allergy Verified 08/14/25 19:41 Surgical History History of tonsillectomy Social History Smoking Status: Former smoker substance use type: does not use ROS ROS ED ROS Narrative Denies recent illness. Constitutional Constitutional ED: Denies chills or fever(s) Eyes Eyes: Denies blurry vision ENT ENT ED: Denies ear pain Cardiovascular Cardiovascular: Denies chest pain or palpitations Respiratory/Chest Respiratory/Chest: Denies cough or dyspnea Gastrointestinal Gastrointestinal: Denies abdominal pain Genitourinary Genitourinary ED: Denies dysuria or hematuria Musculoskeletal Musculoskeletal: Denies arthralgias or back pain Integumentary Denies abscess Neurologic Neurologic: Denies headache(s) Psychiatric Psychiatric: Denies anxiety or depression Endocrine Endocrinology: Denies polydipsia Hematologic/Lymphatic Hematologic/Lymphatic: Denies easy bleeding, easy bruising or lymphadenopathy Allergic/Immunologic Allergic/Immunologic ED: Denies mouth swelling, tongue swelling or urticaria EXAM Physical Exam Narrative Exam Narrative: 19-year-old male sitting upright in bed. Vital signs stable afebrile. Initial blood pressure was elevated repeat was 149/91. He is in no acute distress. H EENT exam pupils round react light. Moist mutes membranes. Lungs clear. Heart regular rhythm no murmur. Rate about 90. Chest wall ribs nontender. Abdomen soft nontender. Nondistended. No hernia or mass. External exam. Circumcised male. No lymphadenopathy. No lesions. No discharge. No testicular or scrotal swelling. He has tenderness on his right testicle possibly consistent with an epididymitis. There is no scrotal swelling or redness. There is no discoloration. There are no ulcerations. There is no inguinal hernia. Moving all 4 extremities. Nontender no edema. Back nontender. Neurologically he is awake and alert. No focal motor deficits. Const Vital Signs: 08/14/25 19:41 08/14/25 19:50 08/14/25 20:41 Temperature 98.2 F Temperature Source Oral Pulse Rate 87 89 Respiratory Rate 18 16 Respiratory Effort Normal Respiratory Pattern Normal Blood Pressure 159/137 H 149/91 H Blood Pressure Mean 144 110 Pulse Ox 97 98 Oxygen Delivery Method Room Air Room Air 08/14/25 23:24 Temperature Temperature Source Pulse Rate 77 Respiratory Rate 18 Respiratory Effort Respiratory Pattern Blood Pressure 108/79 Blood Pressure Mean 88 Pulse Ox 99 Oxygen Delivery Method Room Air MDM MDM MDM Narrative Medical decision making narrative: 19-year-old male right scrotal pain consistent with a possible epididymitis. Ultrasound being obtained a UA. He was offered but did not wining for pain. I do not think blood work would be helpful. Patient be treated with doxycycline. In 10 days. First dose given the ER. Motrin. Supportive underwear. History & Record Review Discussion w/independent historian: Patient Additional record(s) reviewed:: Prior inpatient record, Prior outpatient record, Prior ED visit and Prior labs Lab Data Attestation: I reviewed the patient's lab results. Lab results narrative: UA normal. Testicular ultrasound shows epididymal orchitis. On the right. Left unremarkable. No torsion. Epididymitis possibly Labs: Laboratory Results - last 24 hr 08/14/25 22:33 Urine Color Straw Urine Clarity Clear Urine pH 8.0 Ur Specific Williamson 1.010 Urine Protein Negative Urine Glucose (UA) Normal Urine Ketones Negative Urine Occult Blood Negative Urine Nitrite Negative Urine Bilirubin Negative Urine Urobilinogen Normal Ur Leukocyte Esterase Negative Urine RBC 0-5 SEEN Urine WBC 0-5 SEEN Ur Squamous Epith Cells 0-5 SEEN Urine Bacteria 0 SEEN Urine Mucus 0 SEEN Radiography Diagnostic Testing: Clinical Impression(s) from Imaging Studies Testicular Ultrasound 08/14/25 21:15 IMPRESSION: Findings suggestive of right epididymo-orchitis. No evidence of torsion. Reading Location: [id number] Discharge Plan Triage Chief Complaint: Male Pain/Injury ED Provider: Lan Hill Dx/Rx/DC Orders Clinical Impression: Acute epididymitis Instructions: ED Epididymitis Prescriptions: New doxycycline hyclate 100 mg capsule 100 mg PO BID 10 Days Qty: 20 0RF No Action albuterol sulfate [Ventolin] 2.5 mg /3 mL (0.083 %) Solution For Nebulization 2.5 mg INHALATION Q6H cetirizine [Zyrtec] 10 mg Tablet 10 mg PO DAILY budesonide [Pulmicort] 0.25 mg/2 mL Suspension For Nebulization 0.25 mg INHALATION BID albuterol sulfate 2.5 mg /3 mL (0.083 %) solution for nebulization 2.5 mg inhalation Q4H PRN Qty: 25 0RF Rx Instructions: Use q4 hours and PRN for wheezing Primary Care Provider: Care Physician,No Primary Referrals: Gaetano Cruz MD [Med Staff - Active Staff, Urology] - 1 Week if not improving Pooja Dnig MD [Non-Staff, Pediatrics] Activity Restrictions/Additional Instructions: The antibiotic doxycycline 1 pill twice a day for 10 days. Take it with food on your stomach. Motrin and/or Tylenol for pain. Supportive underwear. Follow-up with the urologist Dr. Reid Cruz if not improving. Print Language: Tamazight Disposition Disposition: Home, Self Care
--- OUTSIDE RECORDS SUMMARY | 2025-08-14 21:23 | XMS RPT_ITS | CCD ---
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 BLOOD SPECIMEN Ordering Facility: [facility] Address: [address] [place] [address] Performed By: #### 5 7021-8 #### [facility] CLIA [id number] [address] [place] [address] [place] MCHC (RBC) [Mass/Vol] 33.1 g/dL Normal 30.5-36.0 [facility] Comment on above: Order Comment: Speci men Type: BLOOD SPECIMEN Ordering Facility: [facility] Address: [address] [place] [address] Performed By: #### 5 7021-8 #### [facility] CLIA [id number] [address] [place] [address] [place] MCV (RBC) [Entitic vol] 87.5 fL Normal 80.0-100.0 [facility] Comment on above: Order Comment: Speci men Type: BLOOD SPECIMEN Ordering Facility: [facility] Address: [address] [place] [address] Performed By: #### 5 7021-8 #### [facility] CLIA [id number] [address] [place] [address] [place] Monocytes (Bld) [#/Vol] 0.84 10*3/uL Normal <0.87 [facility] Comment on above: Order Comment: Speci men Type: BLOOD SPECIMEN Ordering Facility: [facility] Address: [address] [place] [address] Performed By: #### 5 7021-8 #### [facility] CLIA [id number] [address] [place] [address] [place] Monocytes/100 WBC (Bld) 12.7 % Normal [facility] Comment on above: Order Comment: Speci men Type: BLOOD SPECIMEN Ordering Facility: [facility] Address: [address] [place] [address] Performed By: #### 5 7021-8 #### [facility] CLIA [id number] [address] [place] [address] [place] Neutrophils (Bld) [#/Vol] 3.97 10*3/uL Normal 1.45-7.50 [facility] Comment on above: Order Comment: Speci men Type: BLOOD SPECIMEN Ordering Facility: [facility] Address: [address] [place] [address] Performed By: #### 5 7021-8 #### [facility] CLIA [id number] [address] [place], [place] [address] [place] Neutrophils/100 WBC (Bld) 59.6 % Normal [facility] Comment on above: Order Comment: Speci men Type: BLOOD SPECIMEN Ordering Facility: [facility] Address: [address] [place] [address] Performed By: #### 5 7021-8 #### [facility] CLIA [id number] [address] [place], [place] [address] [place] Nucleated RBC (Bld) [#/Vol] 10*3/uL Normal <0.01 [facility] Comment on above: Order Comment: Speci men Type: BLOOD SPECIMEN Ordering Facility: [facility] Address: [address] [place] [address] Performed By: #### 5 7021-8 #### [facility] CLIA [id number] [address] [place] [address] [place] Nucleated RBC/100 WBC (Bld) [Ratio] 0.0 /100 WBC Normal [facility] Comment on above: Order Comment: Speci men Type: BLOOD SPECIMEN Ordering Facility: [facility] Address: [address] [place] [address] Performed By: #### 5 7021-8 #### [facility] CLIA [id number] [address] [place] [address] [place] Platelet mean volume (Bld) [Entitic vol] 10.4 fL Normal 9.0-12.7 [facility] Comment on above: Order Comment: Speci men Type: BLOOD SPECIMEN Ordering Facility: [facility] Address: [address] [place] [address] Performed By: #### 5 7021-8 #### [facility] CLIA [id number] [address] [place] [address] [place] Platelets (Bld) [#/Vol] 238 10*3/uL Normal 150-400 [facility] Comment on above: Order Comment: Speci men Type: BLOOD SPECIMEN Ordering Facility: [facility] Address: [address] [place] [address] Performed By: #### 5 7021-8 #### [facility] CLIA [id number] [address] [place] [address] [place] RBC (Bld) [#/Vol] 5.04 10*6/uL Normal 4.20-6.00 [facility] Comment on above: Order Comment: Speci men Type: BLOOD SPECIMEN Ordering Facility: [facility] Address: [address] [place] [address] Performed By: #### 5 7021-8 #### [facility] CLIA [id number] [address] [place] [address] [place] WBC (Bld) [#/Vol] 6.64 10*3/uL Normal 3.70-11.00 [facility] Comment on above: Order Comment: Speci men Type: BLOOD SPECIMEN Ordering Facility: [facility] Address: [address] [place] [address] Performed By: #### 5 7021-8 #### [facility] CLIA [id number] [address] [place] [address] [place] CNOVon 02-12-2025 CNOV Office Visit (FAMPWS ) -------- EUGENE SALVADOR ([id number]) 3 M Date Time Provider Department 02/12/25 7[facility]00 AM [facility] your visit today, we recorded the [...] done Influenza (more content not included)... Normal [facility] HCV Ab Ser Qlon 02-12-2025 HCV Ab Ql (S) Negative Normal Negative [facility] Comment on above: Order Comment: Speci men Type: BLOOD SPECIMENOrdering Facility: [facility] Address: [address] [place] [address] Result Comment: The result suggests no evidence of infection with Hepatitis C virus. Should recent infection be suspected, repeat testing may be considered 4-6 weeks after this draw. Performed By: #### 1 6128-1 ####[facility] [id number] [place] [address] [place] HIV 1+2 Ab IA Qlon HIV 1 and 2 Ab IA.rapid Nom (S/P/Bld) Normal [facility] Comment on above: Order Comment: Speci men Type: BLOOD SPECIMENOrdering Facility: [facility] Address: [address] [place] [address] Result Comment: Test not indicated. Performed By: #### 3 1201-7 ####[facility] [id number] [place] [address] [place] HIV 1+2 Ab+HIV1 p24 Ag IA Ql Non-Reactive Normal Nonreactive [facility] Comment on above: Order Comment: Speci men Type: BLOOD SPECIMENOrdering Facility: [facility] Address: [address] [place] [address] Performed By: #### 3 1201-7 ####[facility] [id number] [place] [address] [place] HIV immunoassay testing algorithm interpretation (S/P/Bld) [Interp] Normal [facility] Comment on above: Order Comment: Speci men Type: BLOOD SPECIMENOrdering Facility: [facility] Address: [address] [place] [address] Result Comment: No e vidence of HIV-1 or HIV-2 infection. Should recent infection be suspected, repeat testing may be considered 2-3 weeks after this draw. Crane Rev. Code 3701.243(E): This information has been [...] or diagnoses. Performed By: #### 3 1201-7 ####[facility]IA [id number] [place] [address] [place] HbA1c (Bld)on 02-12-2025 Average glucose Estimated from glycated hemoglobin (Bld) [Mass/Vol] 100 mg/dL Normal [facility] Comment on above: Order Comment: Speci men Type: BLOOD SPECIMENOrdering Facility: [facility] Address: [address] [place] [address] Result Comment: eAG: (Estimated average glucose) is a calculated value from HgbA1c and is volunteer patient representative of the average blood glucose level in the last 2-3 month period. Performed By: #### 5 5454-3 ####[facility] [id number] [place] [address] [place] HbA1c (Bld) [Mass fraction] 5.1 % Normal 4.3-5.6 [facility] Comment on above: Order Comment: Speci men Type: BLOOD SPECIMENOrdering Facility: [facility] Address: [address] [place] [address] Result Comment: Amer [place] Diabetes Association guidelines indicate that patients with HgbA1c in the range 5.7-6.4% are at increased risk for development of diabetes, and intervention by lifestyle modification may be beneficial. HgbA1c greater or equal to 6.5% is considered diagnostic of diabetes. Performed By: #### 5 5454-3 ####[facility] [id number] [place] [id number] [place] LIPID PANEL, NONFASTINGon Cholesterol [Mass/Vol] 160 mg/dL Normal <200 [facility] Comment on above: Order Comment: Speci men Type: BLOOD SPECIMENOrdering Facility: [facility] Address: [address] [place] [address] Result Comment: <200 mg/dL, Desirable 200-239 mg/dL, Borderline high >239 mg/dL, High Performed By: #### L IPNF, 73497-4 ####[facility] [id number] [place] [address] [place] HDL CHOLESTEROL, NF 50 mg/dL Normal >39 [facility] Comment on above: Order Comment: Speci men Type: BLOOD SPECIMENOrdering Facility: [facility] Address: [address] [place] [address] Result Comment: 40-5 9 mg/dL, Acceptable >59 mg/dL, High: Negative risk factor for coronary heart disease <40 mg/dL, Low: Positive risk factor for coronary heart disease Performed By: #### L LATOSHA, 49120-6 ####[facility]IA [id number] [address] LDL CHOLESTEROL, NF 100 mg/dL High <100 [facility] Comment on above: Order Comment: Romy rosado Type: BLOOD SPECIMENOrdering Facility: [facility] Address: [address] [place] [address] Result Comment: <100 mg/dL, Optimal 100-129 mg/dL, Near optimal/above optimal 130-159 mg/dL, Borderline high 160-189 mg/dL, High >189 mg/dL, Very high Secondary prevention optimal LDL Cholesterol levels are recommended to be < 70 mg/dL Performed By: #### L LATOSHA, 15603-3 ####[facility]IA [id number] [address] LDL/HDL RATIO, NF 2.00 mg/dL Normal <2.54 [facility] Comment on above: Order Comment: Romy rosado Type: BLOOD SPECIMENOrdering Facility: [facility] Address: [address] [place] [address] Result Comment: Refe rence: 1. National Cholesterol Education Program ATP III Guideline At-A-Glance Quick Desk Reference: National Heart, Lung, and Blood Bailey. National Institutes of Health. 2001: NIH Publication [...] and Adolescents: National Heart, Lung and Blood Bailey. Pediatrics. 2011:128(Suppl 5):E042-434. Performed By: #### L LATOSHA, 58567-1 ####[facility] [id number] [place] [address] [place] NON HDL CHOL, NF 110 mg/dL Normal <130 [facility] Comment on above: Order Comment: Speci men Type: BLOOD SPECIMENOrdering Facility: [facility] Address: [address] [place] [address] Result Comment: <130 mg/dL, Optimal 130-159 mg/dL, Near optimal/above optimal 160-189 mg/dL, Borderline high 190-219 mg/dL, High >219 mg/dL, Very high Secondary prevention optimal non HDL Cholesterol levels are recommended to be <100 mg/dL Performed By: #### L IPNF, 46775-2 ####[facility] LAB[facility]IA [id number] [place] [address] [place] T CHOL/HDL RATIO NF 3.20 mg/dL Normal <5.10 [facility] Comment on above: Order Comment: Speci men Type: BLOOD SPECIMENOrdering Facility: [facility] Address: [address] [place] [address] Performed By: #### L IPNF, 34020-3 ####[facility] LABCLIA [id number] [place] [address] [place] TRIGLYCERIDES, NF 52 mg/dL Normal <150 [facility] Comment on above: Order Comment: Speci men Type: BLOOD SPECIMENOrdering Facility: [facility] Address: [address] [place] [address] Result Comment: <150 mg/dL, Normal 150-199 mg/dL, Borderline high 200-499 mg/dL, High >499 mg/dL, Very high Performed By: #### L IPNF, 02010-0 ####[facility]IA [id number] [place] [address] [place] VLDL CHOLESTEROL, NF 10 mg/dL Normal <30 [facility] Comment on above: Order Comment: Speci men Type: BLOOD SPECIMENOrdering Facility: [facility] Address: [address] [place] [address] Performed By: #### L IPNF, 10066-2 ####[facility] ESTRELLA [id number] WANDARadha [address] [place] 10-31-2024 CNPN Telephone ([facility]) -------- EUGENE SALVADOR ([id number]) 3 M Date Time Provider Department 10/31/24 DOLORES SOUZA [facility] During your visit today, we recorded the [...] Encounter Status:Closed by KARINA PRUITT on 10/31/24 [facility] CNOVon 10-30-2024 CNOV Office Visit (WSTR ) -------- EUGENE SALVADOR ([id number]) 3 M Date Time Provider Department 10/30/24 4:00 PM VICKY GONZALES [facility] During your visit today, we recorded the following information about you: Temperature Pulse Respiration Blood pressure 99.1 degrees 110/minute 18/minute 118/70 Weight 68.2 kg Vicky Gonzales, LEBRON.CVICU NURSE 10/30/2024 4:38 PM Signed CC: Patient presents [...] Unremarkable. IMPRESSION IMPRESSION: No acute radiographic abnormality. Anesthetist: SON Transcribe Date/Time: Oct 30 2024 4:16P Dictated by : MARYAM CARRION MD - ALBUTEROL SULFATE HFA 90 MCG/ACTUATION AEROSOL INHALER - PREDNISONE 10 MG TABLET 3. URI, acute - ICD9: 465.9, ICD10: J06.9 - COVID AND INFLUENZA A/B AND RSV PCR, ROUTINE Prescription instructions revie (more content not included)... Normal [facility] COVID AND INFLUENZA A/B AND RSV PCR, ROUTINEon 10-30-2024 SARS-CoV-2 (COVID-19) RNA MIRELLA+probe Ql (Unsp spec) SARS-COV-2 (AGENT OF COVID-19) RNA: Not detected INFLUENZA A RNA: Not detected INFLUENZA B RNA: Not detected RESPIRATORY SYNCYTIAL VIRUS (RSV) RNA: Not detected Normal [facility] Comment on above: Performed By: #### C VFLRS ####[facility] LABCLIA [id number] [place] [address] [place] STREP A MOLECULAR (POC)on Procedural Control Valid [facility] Strep A (POCT) Negative Negative [facility] XR CHEST 2V FRONTAL/LATon XR CHEST [...] tissues: Unremarkable. IMPRESSION: No acute radiographic abnormality. [facility]esthet[facility] Transcribe Date/Time: Oct 30 2024 4:16P Dictated by : MARYAM CARRION MD This examination was interpreted and the report reviewed and electronically signed by: MARYAM CARRION MD on Oct 30 2024 4:16PM EST [id number] Normal [facility] XR Chest PA and Lateralon Radiology Study observation (narrative) [facility] IMPRESSION: No acute radiographic abnormality. Anesthetist: [facility] Transcribe Date/Time: Oct 30 2024 4:16P Dictated [...] soft tissues: Unremarkable. DIVISION OF RADIOLOGY Provider, [facility] - 10/30/2024 * * *Final Report* * [...] Unremarkable. IMPRESSION IMPRESSION: No acute radiographic abnormality. Anesthetist: PSCB Transcribe Date/Time: Oct 30 2024 4:16P Dictated by : MARYAM CARRION MD This examination was interpreted and the report reviewed and electronically signed by: MARYAM CARRION MD on Oct 30 2024 4:16PM EST [facility] XR Chest PA and LateralOrder ed By: Grace Provider on 10-30-2024 [facility] CNOVon 08-21-2024 CNOV Office Visit (UCWSTR ) -------- EUGENE SALVADOR ([id number]) [birth year] M Date Time Provider Department 08/21/24 12:30 PM KRYSTAL HENSON [facility] During your visit today, we recorded the following information about you: Temperature Pulse Respiration Blood pressure 97.2 degrees 92/minute 20/minute 115/70 Weight 69.5 kg Krystal Henson APRN.CNP 08/21/2024 1:36 PM Signed SUBJECTIVE: Eugene Radha Madeleine is a 18 year old male. Who [...] 3. Fatigue, (more content not included)... Normal [facility] XR CHEST 2V FRONTAL/LATon XR CHEST [...] tissues: Unremarkable. IMPRESSION: No acute radiographic abnormality. Anesthetist: [facility] Transcribe Date/Time: Aug 21 2024 12:58P Dictated by : VIC BROUSSARD MD This examination was interpreted and the report reviewed and electronically signed by: VIC BROUSSARD MD on Aug 21 2024 12:58PM EST [id number] Normal [facility] XR Chest PA and Lateralon Radiology Study observation (narrative) [facility] IMPRESSION: No acute radiographic abnormality. Anesthetist: [facility] Transcribe Date/Time: Aug 21 2024 12:58P Dictated [...] soft tissues: Unremarkable. DIVISION OF RADIOLOGY Provider, [facility] - 08/21/2024 * * *Final Report* [...] Unremarkable. IMPRESSION IMPRESSION: No acute radiographic abnormality. Anesthetist: PSC[facility] Transcribe Date/Time: Aug 21 2024 12:58P Dictated by : VIC BROUSSARD MD This examination was interpreted and the report reviewed and electronically signed by: VIC BROUSSARD MD on Aug 21 2024 12:58PM EST [facility] XR Chest PA and LateralOrder ed By: Ccf Provider on 08-21-2024 [facility] CBC + DIFFon 04-23-2024 Baso # 0.03 x10EE3/UL Normal 0.00 - 0.10 [facility] Comment on above: Performed By: #### 2 83615 #### [address] [address] Basophils/100 WBC (Bld) 0.3 % Normal 0.0 - 2.0 [facility] Comment on above: Performed By: #### 2 45335 #### [facility],[address] [place] [address] CBC + DIFF Normal [facility] Comment on above: Result Comment: CBC- COMPLETE BLOOD COUNT Performed By: #### 2 35270 #### [facility],[address] [place] [address] EO # 0.14 x10EE3/UL Normal 0.00 - 0.50 [facility] Comment on above: Performed By: #### 2 17791 #### [facility],[address] [place] [address] Eosinophils/100 WBC (Bld) 1.4 % Normal 0.0 - 7.0 [facility] Comment on above: Performed By: #### 2 82168 #### [facility],[address] [place] [address] Erythrocyte distribution width (RBC) [Ratio] 13.2 % Normal 12.0 - 15.6 [facility] Comment on above: Performed By: #### 2 42685 #### [facility],[address] [place] [address] Hematocrit (Bld) [Volume fraction] 41.8 % Normal 40.0 - 52.0 [facility] Comment on above: Performed By: #### 2 94628 #### [facility],[address] [place] [address] Hemoglobin (Bld) [Mass/Vol] 14.4 g/dL Normal 13.0 - 17.5 [facility] Comment on above: Performed By: #### 2 69464 #### [facility],[address] [place] [address] Lymph # 1.76 x10EE3/UL Normal 0.80 - 2.80 [facility] Comment on above: Performed By: #### 2 03387 #### [facility],[address] [place] [address] Lymphocytes/100 WBC (Bld) 17.7 % Low 20.0 - 45.0 [facility] Comment on above: Performed By: #### 2 32311 #### [facility],[address] [place], [place] [id number] MANUAL DIFF N/A Normal [facility] Comment on above: Performed By: #### 2 11300 #### [facility],[address] [place], [place] [id number] MCH (RBC) [Entitic mass] 30 pg Normal 27 - 33 [facility] Comment on above: Performed By: #### 2 62128 #### [facility],[address] [place] [address] MCHC 34 X10 3 Normal 32 - 36 [facility] Comment on above: Performed By: #### 2 87573 #### [facility],[address] [place] [address] MCV (RBC) [Entitic vol] 87 fL Normal 81 - 98 [facility] Comment on above: Performed By: #### 2 54786 #### [facility],[address] [place] [address] Orange # 1.01 x10EE3/UL High 0.20 - 1.00 [facility] Comment on above: Performed By: #### 2 02572 #### [facility],[address] [place] [address] MONOS % 10.2 % High 0.0 - 10.0 [facility] Comment on above: Performed By: #### 2 41629 #### [facility],[address] [place] [address] 79221 Morphology Lev (Bld) [Interp] N/A Normal [facility] Comment on above: Performed By: #### 2 41654 #### [facility],[address] [place] [address] 32683 Neut # 7.03 x10EE3/UL Normal 1.50 - 7.10 [facility] Comment on above: Performed By: #### 2 99059 #### [facility],[address] [place] [address] 90741 Neutrophils/100 WBC (Bld) 70.5 % Normal 46.0 - 76.0 [facility] Comment on above: Performed By: #### 2 19134 #### [facility],[address] [place] [address] 27258 PLATELET 206 x10EE3/UL Normal 150 - 450 [facility] Comment on above: Performed By: #### 2 08184 #### [facility],[address] [place] [address] 17199 Platelet mean volume (Bld) [Entitic vol] 8.1 fL Normal 6.4 - 10.5 [facility] Comment on above: Result Comment: AUTO MATED DIFFERENTIAL Performed By: #### 2 07488 #### [facility],[address] [place] [address] RBC 4.81 x 10EE6/UL Normal 4.50 - 6.00 [facility] Comment on above: Performed By: #### 2 41447 #### [facility],[address] [place] [address] WBC 10.0 x 10EE3/UL Normal 4.5 - 10.8 [facility] Comment on above: Performed By: #### 2 17723 #### [facility],[address] [place] [address] BMP with eGFRon 04-22-2024 AGE 18 years Normal [facility] Comment on above: Performed By: #### 2 07433 #### [facility],[address] [place] [address] Anion gap [Moles/Vol] 14 mmol/L Normal 10 - 20 [facility] Comment on above: Performed By: #### 2 82219 #### [facility],[address] [place] [address] BMP with eGFR Normal [facility] Comment on above: Result Comment: BASI C METABOLIC PANEL Performed By: #### 2 35015 #### [facility],[address] [place] [address] Calcium [Mass/Vol] 9.0 mg/dL Normal 8.5 - 10.1 [facility] Comment on above: Performed By: #### 2 65953 #### [facility],[address] [place] [address] Chloride [Moles/Vol] 102 mmol/L Normal 98 - 107 [facility] Comment on above: Performed By: #### 2 05718 #### [facility],[address] [place], [place] [address] CO2 [Moles/Vol] 24.7 mmol/L Normal 21.0 - 32.0 [facility] Comment on above: Performed By: #### 2 10618 #### [facility],[address] [place] [address] Creatinine [Mass/Vol] 0.98 mg/dL Normal 0.70 - 1.30 [facility] Comment on above: Performed By: #### 2 66394 #### [facility],[address] [place], [place] [address] GFR/1.73 sq M.predicted among non-blacks MDRD (S/P/Bld) [Vol rate/Area] mL/min/{1.73_m2} Normal 60 - 999 [facility] Comment on above: Performed By: #### 2 88909 #### [facility],[address] [place] [address] Result Comment: ACCO RDING TO THE NATIONAL KIDNEY DISEASE EDUCATION PROGRAM(NKDE), A NORMAL eGFR IS A VALUE GREATER THAN OR EQUAL TO 60 ML/MIN/1.73 SQ METERS. CHRONIC KIDNEY DISEASE: <60mL/MIN/1.73 SQ METERS KIDNEY FAILURE: <15mL/MIN/1.73 SQ METERS THIS TEST SHOULD ONLY BE USED FOR PATIENTS 18 YEARS OF AGE AND OLDER. Glucose [Mass/Vol] 150 mg/dL High 74 - 106 [facility] Comment on above: Performed By: #### 2 52838 #### [facility],[address] [place], [place] [address] Potassium [Moles/Vol] 4.1 mmol/L Normal 3.5 - 5.1 [facility] Comment on above: Performed By: #### 2 32101 #### [facility],[address] [place], [place] [address] Sodium [Moles/Vol] 137 mmol/L Normal 136 - 145 [facility] Comment on above: Performed By: #### 2 60864 #### [facility],[address] [place] [address] Urea nitrogen [Mass/Vol] 13 mg/dL Normal 7 - 18 [facility] Comment on above: Performed By: #### 2 03745 #### [facility],[address] [place] [address] CBC + DIFFon 04-22-2024 Baso # 0.03 x10EE3/UL Normal 0.00 - 0.10 [facility] Comment on above: Performed By: #### 2 58961 #### [facility],[address] [place] [address] Basophils/100 WBC (Bld) 0.2 % Normal 0.0 - 2.0 [facility] Comment on above: Performed By: #### 2 54507 #### [facility],[address] [place] [address] CBC + DIFF Normal [facility] Comment on above: Result Comment: CBC- COMPLETE BLOOD COUNT Performed By: #### 2 29752 #### [facility],[address] [place] [address] EO # 0.04 x10EE3/UL Normal 0.00 - 0.50 [facility] Comment on above: Performed By: #### 2 07236 #### [facility],[address] [place], [place] [address] Eosinophils/100 WBC (Bld) 0.3 % Normal 0.0 - 7.0 [facility] Comment on above: Performed By: #### 2 03308 #### [facility],[address] [place] [address] Erythrocyte distribution width (RBC) [Ratio] 13.7 % Normal 12.0 - 15.6 [facility] Comment on above: Performed By: #### 2 55688 #### [facility],[address] [place] [address] Hematocrit (Bld) [Volume fraction] 43.3 % Normal 40.0 - 52.0 [facility] Comment on above: Performed By: #### 2 61571 #### [facility],[address] [place] [address] 15291 Hemoglobin (Bld) [Mass/Vol] 15.0 g/dL Normal 13.0 - 17.5 [facility] Comment on above: Performed By: #### 2 78323 #### [facility],[address] [place] [address] Lymph # 0.51 x10EE3/UL Low 0.80 - 2.80 [facility] Comment on above: Performed By: #### 2 78231 #### [facility],[address] [place], [place] [address] Lymphocytes/100 WBC (Bld) 4.1 % Low 20.0 - 45.0 [facility] Comment on above: Performed By: #### 2 50385 #### [facility],[address] [place], [place] [address] MANUAL DIFF N/A Normal [facility] Comment on above: Performed By: #### 2 82066 #### [facility],[address] [place] [address] 83799 MCH (RBC) [Entitic mass] 30 pg Normal 27 - 33 [facility] Comment on above: Performed By: #### 2 91808 #### [facility],[address] [place] [address] 20010 MCHC 35 X10 3 Normal 32 - 36 [facility] Comment on above: Performed By: #### 2 91719 #### [facility],[address] [place] [address] 46958 MCV (RBC) [Entitic vol] 86 fL Normal 81 - 98 [facility] Comment on above: Performed By: #### 2 31479 #### [facility],[address] [place] [address] 14777 Orange # 0.49 x10EE3/UL Normal 0.20 - 1.00 [facility] Comment on above: Performed By: #### 2 93560 #### [facility],[address] [place] [address] 43592 MONOS % 3.9 % Normal 0.0 - 10.0 [facility] Comment on above: Performed By: #### 2 38088 #### [facility],[address] [place] [address] 61178 Morphology Lev (Bld) [Interp] N/A Normal [facility] Comment on above: Performed By: #### 2 77992 #### [facility],[address] [place] [address] 09798 Neut # 11.54 x10EE3/UL High 1.50 - 7.10 [facility] Comment on above: Performed By: #### 2 83308 #### [facility],[address] [place] [address] 09482 Neutrophils/100 WBC (Bld) 91.6 % High 46.0 - 76.0 [facility] Comment on above: Performed By: #### 2 15361 #### [facility],[address] [place] [address] 45881 PLATELET 221 x10EE3/UL Normal 150 - 450 [facility] Comment on above: Performed By: #### 2 95970 #### [facility],[address] [place] [address] 80072 Platelet mean volume (Bld) [Entitic vol] 8.9 fL Normal 6.4 - 10.5 [facility] Comment on above: Result Comment: AUTO MATED DIFFERENTIAL Performed By: #### 2 14087 #### [facility],[address] [place] [address] 83649 RBC 5.07 x 10EE6/UL Normal 4.50 - 6.00 [facility] Comment on above: Performed By: #### 2 57186 #### [facility],[address] [place] [address] 14531 WBC 12.6 x 10EE3/UL High 4.5 - 10.8 [facility] Comment on above: Performed By: #### 2 12504 #### [facility],[address] [place] [address] 83383 KNEE 2 VIEWS LTon 04-22-2024 KNEE 2 VIEWS LT [address] [address] Patient: EUGENE SALVADOR Phone#: : 2005 Age: 18 Gender: M Pt. Type: ER Account: [id number] Location: 05 Ordering: JEREMIAS HUGGINS Exam Date: 04/21/2024/13:29 Family Phys: Charge Code: [id number] Physician: [place] Order #: [id number] Dose#: PROCEDURE: X-RAY KNEE LT 2 VIEWS COMPARISON: [facility], XR, KNEE COMPLETE LT MIN 4 VIEWS, [...] Orr MD on 04/21/2024 at 14:05 Normal [facility] OPERATIVE PROCEDURESon 04-22 OPERATIVE PROCEDURES [facility] OPERATIVE REPORT NAME ACCOUNT SEX AGE ADMIT DISCHARGE PT MED. RECORD# NUMBER DATE DATE TYPE MADELEINE [id number] M 18 04/21/24 María Garcia [id number] ROOM: [facility] DATE OF : 2005 DICTATING PHYSICIAN: Zheng Wilcox DATE OF SURGERY: April 21, 2024 SURGEON: Zheng Wilcox MD CONSULTING GROUP ANALYST: None. ANESTHESIOLOGIST: Sid Wall CRNA ANESTHETIC: General, [...] Zheng Wilcox MD 04/21/24 19:35 JOB #: [id number] Transcribed By: yane 04/22/24 06:51 Electronically signed by: E-SIGN DR. ZHENG WILCOX M.D. 04/22/24 12:35 Page 2 of 2 EUGENE SALVADOR Operative Report Normal [facility] CULTURE WOUND [MALA]on CULTURE WOUND [MALA] CULTURE WOUND [MALA] _WOUND CULTURE_ GO TO [facility] REPORTS AND ATTACHMENTS FOR SCANNED REPORT 04/30/24.1305.DNP.COMPLE TE Normal [facility] Comment on above: Performed By: #### 2 89272 #### [facility],[address] [place] [address] KNEE COMPLETE LT MIN 4 VIEWS on 04-21-2024 KNEE COMPLETE LT MIN 4 VIEWS [place] [address] Patient: EUGENE SALVADOR Phone#: : 2005 Age: 18 Gender: M Pt. Type: ER Account: [id number] [facility] Ordering: ZHENG WILCOX Exam Date: 04/21/2024/16:26 Family Phys: Charge Code: [id number] Physician: [place] Order #: [id number] Dose#: PROCEDURE: X-RAY KNEE LT COMPLETE 4 VIEWS COMPARISON: [facility], XR, KNEE 2 VIEWS LT, 04/21/2024, 13:29. [...] Orr MD on 04/21/2024 at 17:02 Normal [facility] INFLUENZA A&B MOLECULAR (POC )on 12-05-2023 Flu A (POCT) Positive Abnormal Negative [facility] Procedural Control Valid [facility] ECG COMPLETEon 09-04-2022 Atrial Rate 65 BPM [facility] Calculated P Ellerbe 76 degrees [facility] Calculated R Ellerbe 65 degrees [facility] Calculated T Ellerbe 56 degrees [facility] P-R Interval 130 ms [facility] QRS Duration 82 ms [facility] QT Interval 376 ms [facility] QTC Calculation (Bazett) 391 ms [facility] Ventricular Rate 65 BPM [facility] STREP A MOLECULAR (POC)on Procedural Control Valid [facility] Strep A (POCT) Negative Negative [facility] EMERGENCY DEPARTMENT REPORTo n 08-15-2017 EMERGENCY DEPARTMENT REPORT [place] [address]OURTVG INFORMATION MANAGEMENTEMERGENCY DEPARTMENT REPORTPatient: MADELEINEROSEANN BEE D.O.[id number]/[birth year] 11 MStatus: [facility] ER EDDate of Service: 07/31/17DDENDUMThe patient was seen by myself and also Kelly York, nurse practitioner. I didexamine the child for the groin area with the rash. I do agree with the assessment and planof dry skin on the scrotum. Please see Kelly York's dictation. 08/15/17 1525 ROSEANN MELGAR D.O.cc: АННА AVELAR M.D.; ROSEANN PIMENTEL D.O. << Signature on File>> Reported By: ROSEANN PMIENTEL D.O. Signed By: ROSEANN PIMENTEL D.O.Tests performed at:[address] [id number] [facility]2017 LYMETOT SEE SEPARATE REPORT [facility] Comment on above: Performed By: #### L 200.3001, L200.3190 ####ML - [facility] [address] [address] ED REPORTon 08-01-2017 ED REPORT [facility] [place], [place] [address]UDBBUS INFORMATION MANAGEMENTEMERH. [facility]. [facility]PITALCY DEPARTMENT REPORTPatient: EUGENE SALVADRO KATHY NP-C as dictated by BROOKS [id number] MStatus: [facility] ER EDDate of Service: 07/31/17CHIEF COMPLAINTSoreness and redness to his scrotal area.HISTORY OF PRESENT ILLNESSMom states that they were here about a month ago where [facility] the [facility]ologist could not rule out appendicitisthrough testing done here at [place]. She said he was sent [facility] that night,transferred by squad. They basically monitored him overnight. They did some more studies ofhis appendix. They said that it was enlarged and thickened. They gave him a dose of sometype of IV antibiotic and sent him home to follow up with the senior grants officer. Apparently atthis same time that this all started the patient was somehow bit on his scrotum by a tickwhich was actually imbedded in his scrotum and they removed it when he was up [facility]. He had some red streaking going up [...] was supposed to follow up with her senior grants officer for her child 3days after discharge from [facility] and she has called the senior grants officer's office andthey keep put her off, telling [...] try to get him in with the senior grants officer sooner than the if problems persist orshe can come back to the ER for any new or worsening symptoms.IMPRESSIONDry skin on scrotum. 08/02/17 1141 KELLY MALCOLMCcc: KELLY LINO; АННА AVELAR M.D. << Signature on File>> Reported By: KELLY LINO Signed By: KELLY LINOCTests performed at:[address] [phone] [facility] BMPon 07-31-2017 Anion gap 14.7 mmol/L Low [facility] Comment on above: Performed By: #### L 200.2001, L200.9240 ####ML - [facility] [address] [place] [address] Calcium 9.2 mg/dL Normal 8.4-10.2 [facility] Comment on above: Performed By: #### L 200.3001, L200.3190 ####ML - UVTHOAWLBD289 [place] [address] Chloride 104 mmol/L Normal 98-107 [facility] Comment on above: Performed By: #### L 200.3001, L200.3190 ####ML - BOXAKITLIN601 [place] [address] CO2 25 mmol/L Normal 22-29 [facility] Comment on above: Performed By: #### L 200.3001, L200.3190 ####ML - FJTEEWEODG685 [place] [address] Creatinine 0.46 mg/dL Low 0.53-0.79 [facility] Comment on above: Performed By: #### L 200.3001, L200.3190 ####ML - PZOCWATPNK473 [place] [address] eGFR (non-black) > 60 ml/Min/1.73m2 Normal [facility] Comment on above: Performed By: #### L 200.3001, L200.3190 ####ML - LRFMNMLQVA373 [place] [address] Glucose mass conc 108 mg/dL High 60-100 [facility] Comment on above: Performed By: #### L 200.3001, L200.3190 ####ML - BINPAKYADT473 [place] [address] Potassium molar conc 3.7 mmol/L Normal 3.5-5.0 [facility] Comment on above: Performed By: #### L 200.3001, L200.3190 ####ML - XMUROSWJEH427 [place] [address] Sodium 140 mmol/L Normal 135-145 [facility] Comment on above: Performed By: #### L 200.3001, L200.3190 ####ML - KCDXGHMDMY652 [place] [address] Urea nitrogen 11 mg/dL Normal 5-18 [facility] Comment on above: Performed By: #### L 200.3001, L200.3190 ####ML - MDTEGAJHBU756 [place] [address] CBCon 07-31-2017 Basophils Auto #/vol (Bld) 0.00 x10(3) Normal 0.00-0.30 [facility] Comment on above: Performed By: #### L 200.3001, L200.3190 ####ML - NIGDQCCLGE[address] [place] [address] 80594 Basophils/100 WBC Auto (Bld) 0.5 % Normal 0-2 [facility] Comment on above: Performed By: #### L 200.3001, L200.3190 ####[facility] [address]NPZNLU[address] [place] [address] Eosinophils 0.40 x10(3) Normal 0.00-0.50 [facility] Comment on above: Performed By: #### L 200.3001, L200.3190 ####ML - MNLCQTDUWX[address] [place] [address] 88291 Eosinophils/100 leukocytes 8.2 % High 1-4 [facility] Comment on above: Performed By: #### L 200.3001, L200.3190 ####[facility] [address]FJKGVIT[address] [place] [address] 55152 Erythrocyte distribution width Auto Ratio (RBC) 13.6 % Normal 11.5-14.5 [facility] Comment on above: Performed By: #### L 200.3001, L200.3190 ####ML [facility] XCVDTOBNNH[address] [place] [address] 49132 Erythrocytes (RBC) 4.78 x10(6) Normal 4.00-5.40 [facility] Comment on above: Performed By: #### L 200.3001, L200.3190 ####ML [facility] [address] [place] [address] Hematocrit (HCT) 38.9 % Normal 35-49 [facility] Comment on above: Performed By: #### L 200.3001, L200.3190 ####ML [facility] WJIVJNINTD[address] [place] [facility] [place] [address] Hemoglobin mass conc (Bld) 13.7 g/dL Normal 12-15.0 [facility] Comment on above: Performed By: #### L 200.3001, L200.3190 ####ML - AJEWEBEZSD[address] [place] [facility] [place] [address] Lymphocytes 1.80 x10(3) Normal 1.00-7.20 [facility] Comment on above: Performed By: #### L 200.3001, L200.3190 ####ML - AODNXYRBNH[address] [place] [address] Lymphocytes/100 leukocytes 34.0 % Normal 23-53 [facility] Comment on above: Performed By: #### L 200.3001, L200.3190 ####ML - KSCURZXOAK9[address] [place] [address] MCH 28.7 pg Normal 26-32 [facility] Comment on above: Performed By: #### L 200.3001, L200.3190 ####ML - TFDWPERYWS7[address] [place] [facility] [place] [address] MCHC mass conc (RBC) 35.3 g/dL Normal 32-36 [facility] Comment on above: Performed By: #### L 200.3001, L200.3190 ####ML - HSNNGYSEUD[address] [place] [facility] [place] [address] MCV 81.5 fL Normal 80-94 [facility] Comment on above: Performed By: #### L 200.3001, L200.3190 ####ML - VVVWDIWITA6[address] [place] [facility] [place] [address] Monocytes 0.60 x10(3) Normal 0.10-1.50 [facility] Comment on above: Performed By: #### L 200.3001, L200.3190 ####ML - BFUCGUWXCT[address] [place] [address] Monocytes/100 leukocytes 10.7 % Normal 2-11 [facility] Comment on above: Performed By: #### L 200.3001, L200.3190 ####ML - TWTNORKNVZ[address] [place] [address] Neutrophils 2.50 x10(3) Normal 1.60-8.80 [facility] Comment on above: Performed By: #### L 200.3001, L200.3190 ####ML - [id number] [place] [address] Neutrophils/100 WBC Auto (Bld) 46.6 % Normal 35-65 [facility] Comment on above: Performed By: #### L 200.3001, L200.3190 ####ML - PLZWAWESCT9[address] [place] [address] Platelet mean volume (PMV) 8.1 fL Normal 7.4-9.2 [facility] Comment on above: Performed By: #### L 200.3001, L200.3190 ####ML - HAKLRBMTIB116 [place] [address] Platelets 210 X10(3) Normal 150-450 [facility] Comment on above: Performed By: #### L 200.3001, L200.3190 ####ML - PIYXFUOBCU[address] [place] [address] WBC (Leukocytes) 5.4 x10(3) Normal 4.5-13.5 [facility] Comment on above: Performed By: #### L 200.3001, L200.3190 ####ML - RPCZZEQKVE[address] [place] [address] ESRon 07-31-2017 Erythrocyte sedimentation rate 2 mm/h Normal 0-15 [facility] Comment on above: Performed By: #### L 200.3001, L200.3190 ####ML - ILOWVFFPIL719 [place] [address] UCon 07-31-2017 UC No Growth Normal [facility] Comment on above: Performed By: #### L 200.3001, L200.3190 ####ML - APBBCSKOIG404 [place] [address] URINALYSISon 07-31-2017 Bilirubin Ql (U) Negative Normal NEGATIVE [facility] Comment on above: Order Comment: Sourc e: Clean Catch .. Y Performed By: #### L 200.3001, L200.3190 ####ML - [facility] [id number] [place] [address] URINE APPEARANC CLEAR Normal CLEAR [facility] Comment on above: Order Comment: Sourc e: Clean Catch .. Y Performed By: #### L 200.3001, L200.3190 ####ML - [facility] GIIZZTIMXD[address] [place] [address] URINE KETONE Negative Normal NEGATIVE [facility] Comment on above: Order Comment: Sourc e: Clean Catch .. Y Performed By: #### L 200.3001, L200.3190 ####ML - [facility] [id number] [place] [address] URINE SPECIFIC 1.015 Normal 1.001-1.035 [facility] Comment on above: Order Comment: Sourc e: Clean Catch .. Y Performed By: #### L 200.3001, L200.3190 ####ML - [facility] QNUSTRWART[address] [place] [address] URINE UROBILINO 0.2 EU/DL Normal 0.2-1.0 [facility] Comment on above: Order Comment: Sourc e: Clean Catch .. Y Performed By: #### L 200.3001, L200.3190 ####ML - [facility] [id number] [place] [address] Urine, color YELLOW Normal YELLOW [facility] Comment on above: Order Comment: Sourc e: Clean Catch .. Y Performed By: #### L 200.3001, L200.3190 ####ML - [facility] GJBCKYPLTY[address] [place] [place] [address] Urine, glucose presence Negative Normal NEGATIVE [facility] Comment on above: Order Comment: Sourc e: Clean Catch .. Y Performed By: #### L 200.3001, L200.3190 ####ML - [facility] [id number] [place] [facility] [place] [address] Urine, hemoglobin presence TRACE-INTACT Normal NEGATIVE [facility] [facility] Comment on above: Order Comment: Sourc e: Clean Catch .. Y Performed By: #### L 200.3001, L200.3190 ####ML - [facility] [id number] [place] [address] Urine, leukocyte esterase presence Negative Normal NEGATIVE [facility] Comment on above: Order Comment: Sourc e: Clean Catch .. Y Performed By: #### L 200.3001, L200.3190 ####ML - [facility] [id number] [place] [address] Urine, nitrite presence Negative Normal NEGATIVE [facility] Comment on above: Order Comment: Sourc e: Clean Catch .. Y Performed By: #### L 200.3001, L200.3190 ####ML - [facility] [id number] [place] [address] Urine, pH 6.0 [pH] Normal 5.0-8.0 [facility] Comment on above: Order Comment: Sourc e: Clean Catch .. Y Performed By: #### L 200.3001, L200.3190 ####ML - [id number] [place] [address] Urine, protein presence Negative Normal NEGATIVE [facility] Comment on above: Order Comment: Sourc e: Clean Catch .. Y Performed By: #### L 200.3001, L200.3190 ####ML - [facility] NZKMVTRICS[address] [place] [address] URINE MICROSCOPon 07-31-2017 SQUAMOUS FEW Normal NEGATIVE [facility] Comment on above: Order Comment: Sourc e: Clean Catch .. Y Performed By: #### L 200.3001, L200.3190 ####ML - U[facility] JSAOSABKRB[address] [place] [address] Urine, bacteria in sediment TR Normal NEGATIVE [facility] Comment on above: Order Comment: Sourc e: Clean Catch .. Y Performed By: #### L 200.3001, L200.3190 ####ML - U[facility] [id number] [place] [address] Urine, erythrocytes 1-3 Normal 0-2 [facility] Comment on above: Order Comment: Sourc e: Clean Catch .. Y Performed By: #### L 200.3001, L200.3190 ####ML - [facility] THURGWSRFO[address] [place] [address] Urine, leukocytes 1-3 Normal 0-5 [facility] Comment on above: Order Comment: Sourc e: Clean Catch .. Y Performed By: #### L 200.3001, L200.3190 ####ML - [facility] [id number] [place] [address] Urine, mucus presence in sediment 1+ Normal NEGATIVE [facility] Comment on above: Order Comment: Sourc e: Clean Catch .. Y Performed By: #### L 200.3001, L200.3190 ####ML - [facility] [id number] [place] [address] EMERGENCY DEPARTMENT REPORTo n 07-14-2017 EMERGENCY DEPARTMENT REPORT [place] [address]MAZPWK INFORMATION MANAGEMENTEMERGENCY DEPARTMENT REPORTPatient: EGUENE SALVADOR ELLEN K D.O.[id number]/[birth year] MStatus: DEP ER EDDate of Service: 07/12/17DDENDUMThis case was turned over to me by Dr. Allen with pending CT scan for the patient'schronic abdominal pain (the last 2-3 weeks). The patient on scan has a slightly prominentappendix with thickened neri. Thus the radiologist cannot exclude acute appendicitis. [facility] He is pleasantly asleep at this time will be transferred in stable condition. Labsare stable as well.IMPRESSIONTRANSFER 07/14/17 0609 MAYANK KELLER D.O.cc: АННА AVELAR M.D.; MAYANK GARY D.O. << Signature on File>> Reported By: MAYANK GARY D.O. Signed By: MAYANK GARY D.O.Tests performed at:[address] [phone] Normal [facility] C-Reactive Proteinon 017 C reactive protein (CRP) mg/L Normal 0.0-1.0 [facility] Comment on above: Result Comment: CRP determinations in neonates should be interpreted withcaution. CRP may be elevated in circumstances not associatedwith inflammation (e.g. difficult delivery, pneumothorax). Inpremature neonates CRP levels may not rise to abnormal levelseven if sepsis is present; some speculate that immature liverfunction decreases the ability to generate a CRP response. Performed By: #### C RP ####[facility] [place], [place] [phone] ED Provider Progress Noteon 07-13-2017 Remote Pilot Operator Authentication Interface Message Text Eugene Radha SalvadorDOB: 2005Chief ComplaintPatient presents with Abdominal PainNo Known AllergiesDOS: 07/13/2017HPI Comments: This is a 11 year old [place] [facility] [place] [facility]. Pt has had [...] agree with plan andwas D/C home.Jeremias Caruso, DODiagnosis to highest level of medical certainty/plan1. Abdominal [...] weeks of LLQabdominal pain. [facility] received [facility] scan with read of appendixbeing at the borderline of abnormal (7mm) without significant secondary sign.They decided to send the patient to [facility] Main ED as the read can not [...] precautions. Discharged home in stable condition.Kimberly Gonzalez, [facility] Emergency Medicine Fellow - PGY69/21/30811:[address] [facility] ED REPORTon 07-13-2017 ED REPORT [facility] [place] [address]QBWQVK INFORMATION MANAGEMENTEMERGENCY DEPARTMENT REPORTPatient: EUGENE SALVADOR MARK N M.D. as dictated by KATLYN LARA, INA-[id number] MStatus: DEP ER EDDate of Service: 07/12/17CHIEF [...] blood pressure 108/66, temperature 97.5, pulse 85, jthcxyxbbadc00, SPO2 is 99% on room air. He [...] 15 and 0.47. Sodium 139, potassium 3.8, rloplqid11, total CO2 is 26. Urinalysis is negative. [...] M.D. Signed By: JORGE ALLEN M.D.Tests performed at:[address] [phone] Normal [facility] EMERGENCY DEPARTMENT REPORTo n 07-13-2017 EMERGENCY DEPARTMENT REPORT [facility] [place] [address]GGJETO INFORMATION MANAGEMENTEMERGENCY DEPARTMENT REPORTPatient: EUGENE SALVADOR JORGE PARKER M.D.[id number]/[birth year] MStatus: DEP ER EDDate of Service: 07/12/17CHIEF [...] M.D. Signed By: JORGE ALLEN M.D.Tests performed at:[address] [phone] Normal [facility] US ABDOMEN LIMITEDon 017 US ABDOMEN [...] Dr. ELICEO STERLING at 07/13/2017 05:[address] [facility] BMPon 07-12-2017 Anion gap 17.8 mmol/L Normal - [facility] Comment on above: Performed By: #### L 100.0010 ####ML - [address] [place] [address] Calcium 9.7 mg/dL Normal 8.4-10.2 [facility] Comment on above: Performed By: #### L 100.0010 ####ML - FFVBDOGUAZ[address] [place] [address] Chloride 99 mmol/L Normal 98-107 [facility] Comment on above: Performed By: #### L 100.0010 ####ML - IJMOMSPWEV[address] [place] [address] CO2 26 mmol/L Normal 22-29 [facility] Comment on above: Performed By: #### L 100.0010 ####ML - GKHNAONXPZ[address] [place] [address] Creatinine 0.47 mg/dL Low 0.53-0.79 [facility] Comment on above: Performed By: #### L 100.0010 ####ML - SGNTLZOIVZ[address]14[address] [place] [address] eGFR (non-black) > 60 ml/Min/1.73m2 Normal [facility] Comment on above: Performed By: #### L 100.0010 ####ML [facility] XK[address]ZKREKM[address] [place] [address] Glucose mass conc 103 mg/dL High 60-100 [facility] Comment on above: Performed By: #### L 100.0010 ####ML [facility] BNJTTTNZ[address] [place] [address] Potassium molar conc 3.8 mmol/L Normal 3.5-5.0 [facility] Comment on above: Performed By: #### L 100.0010 ####ML [facility] IYEAUWIGJW[address] [place] [address] Sodium 139 mmol/L Normal 135-145 [facility] Comment on above: Performed By: #### L 100.0010 ####ML - NTLGHNZMGK[address] [place] [address] Urea nitrogen 15 mg/dL Normal 5-18 [facility] Comment on above: Performed By: #### L 100.0010 ####ML - LGGWVEIJLV[address] [place] [address] CBCon 07-12-2017 Basophils Auto #/vol (Bld) 0.00 x10(3) Normal 0.00-0.30 [facility] Comment on above: Performed By: #### L 200.0010 ####[address] [address] Basophils/100 WBC Auto (Bld) 0.6 % Normal 0-2 [facility] Comment on above: Performed By: #### L 200.0010 ####ML [address] [address] Eosinophils 0.40 x10(3) Normal 0.00-0.50 [facility] Comment on above: Performed By: #### L 200.0010 ####[address] [address] Eosinophils/100 leukocytes 5.7 % High 1-4 [facility] Comment on above: Performed By: #### L 200.0010 ####[address] [address] Erythrocyte distribution width Auto Ratio (RBC) 14.2 % Normal 11.5-14.5 [facility] Comment on above: Performed By: #### L 200.0010 ####ML [address] [address] Erythrocytes (RBC) 4.85 x10(6) Normal 4.00-5.40 [facility] Comment on above: Performed By: #### L 200.0010 ####[address] [address] Hematocrit (HCT) 40.1 % Normal 35-49 [facility] Comment on above: Performed By: #### L 200.0010 ####[address] [address] Hemoglobin mass conc (Bld) 13.9 g/dL Normal 12-15.0 [facility] Comment on above: Performed By: #### L 200.0010 ####[address] [address] Lymphocytes 2.10 x10(3) Normal 1.00-7.20 [facility] Comment on above: Performed By: #### L 200.0010 ####ML - XSFGBCBYAN[address] [place] [address] Lymphocytes/100 leukocytes 27.8 % Normal 23-53 [facility] Comment on above: Performed By: #### L 200.0010 ####ML - OPMCMRSBDC[address] [place] [address] MCH 28.7 pg Normal 26-32 [facility] Comment on above: Performed By: #### L 200.0010 ####ML - NVGVPYPOQY9[address] [place] [address] MCHC mass conc (RBC) 34.6 g/dL Normal 32-36 [facility] Comment on above: Performed By: #### L 200.0010 ####ML - KJDJGXIDEB[address] [place] [address] MCV 82.8 fL Normal 80-94 [facility] Comment on above: Performed By: #### L 200.0010 ####ML - CPIDLMDKGS[address] [place] [address] Monocytes 0.90 x10(3) Normal 0.10-1.50 [facility] Comment on above: Performed By: #### L 200.0010 ####ML - QGIBKYLLWA[address] [place] [address] Monocytes/100 leukocytes 11.6 % High 2-11 [facility] Comment on above: Performed By: #### L 200.0010 ####ML - SZLWYWKNAB[address] [place] [address] Neutrophils 4.10 x10(3) Normal 1.60-8.80 [facility] Comment on above: Performed By: #### L 200.0010 ####ML - IOLELPYMZI[address] [place] [address] Neutrophils/100 WBC Auto (Bld) 54.3 % Normal 35-65 [facility] Comment on above: Performed By: #### L 200.0010 ####ML - LYKWPEAYFA463 [place] [address] Platelet mean volume (PMV) 8.3 fL Normal 7.4-9.2 [facility] Comment on above: Performed By: #### L 200.0010 #### - ANLLTWCQVB592 [place] [address] Platelets 210 X10(3) Normal 150-450 [facility] Comment on above: Performed By: #### L 200.0010 ####ML - QDOKKKKFXI939 [place] [address] WBC (Leukocytes) 7.5 x10(3) Normal 4.5-13.5 [facility] Comment on above: Performed By: #### L 200.0010 ####ML [facility] IWXCTWIXSD619 [place] [address] CT ABD/PEL W CONTRASTon 06-29 CT ABD/PEL W CONTRAST [address] [address]Gfgx: EUGENE SALVADOR DPhys: JORGE ALLEN M.D.: [birth year] Age: 11 Sex: MAcct: [id number] Loc: EDExam Date: 07/12/17 Status: REG ERRadiology No.: [id number] Number: [id number] # Type/[id number] CT / CT ABD/PEL W CONTRASTCT of [...] algorithm.Professional interpretation provided by [facility]76.Thank you for this referral.< >Reported By: JARED OWUSU M.D.Signed In NovaPro By: JARED OWUSU M.D. << Signature on File>> Reported By: JARED OWUSU M.D. Signed By: JARED OWUSU M.D.Tests performed at:[address] [phone] Normal [facility] HEPATIC PANELon 07-12-2017 A:G RATIO 2.08 Normal 1.1-2.5 [facility] Comment on above: Order Comment: ADD O N Performed By: #### L 100.0030, L100.0350 ####ML - UH ZKEXLXZJCB492 [place] [address] Alanine aminotransferase (ALT) 13 U/L Normal 5-41 [facility] Comment on above: Order Comment: ADD O N Performed By: #### L 100.0030, L100.0350 ####ML - UH VHXBGSSBLL687 [place] [address] Albumin 4.8 g/dL Normal 3.8-5.4 [facility] Comment on above: Order Comment: ADD O N Performed By: #### L 100.0030, L100.0350 ####ML - UH FENTWKQXJD068 [place] [address] ALK. PHOS 301 U/L High 35-299 [facility] Comment on above: Order Comment: ADD O N Performed By: #### L 100.0030, L100.0350 #### - CRZWPFFWKO221 [place] [address] Aspartate aminotransferase (AST) 24 U/L Normal 5-40 [facility] Comment on above: Order Comment: ADD O N Performed By: #### L 100.0030, L100.0350 ####ML - HPENCXDBEI647 [place] [address] Bilirubin Ql (U) 0.5 mg/dL Normal 0.2-1.0 [facility] Comment on above: Order Comment: ADD O N Performed By: #### L 100.0030, L100.0350 #### - YSRSVNKKRK[address] [place] [address] DIRECT BILIRUBI <0.2 Normal 0.0-0.3 [facility] Comment on above: Order Comment: ADD O N Performed By: #### L 100.0030, L100.0350 #### - IFTIQEGBZO[address] [place] [address] Globulin 2.3 g/dL Normal 1.5-4.5 [facility] Comment on above: Order Comment: ADD O N Performed By: #### L 100.0030, L100.0350 ####ML - CABEYQBGFW[address] [place] [address] Protein 7.1 g/dL Normal 6.0-8.0 [facility] Comment on above: Order Comment: ADD O N Performed By: #### L 100.0030, L100.0350 ####ML - IJNQLCMEVO[address] [place] [address] LIPASEon 07-12-2017 Lipase 17 U/L Normal 13-60 [facility] Comment on above: Order Comment: ADD O N Performed By: #### L 100.0030, L100.0350 #### - VOOAHGBJCU[address] [place] [address] LUMBAR LIMITED 2Von 07-12-20 17 LUMBAR LIMITED 2V [address] [address]Rziy: EUGENE SALVADOR DPhys: 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 There is no disc space narrowing,degenerative change or spondylolysis. SI joints are symmetric andunremarkable. Mild spina bifida of S1 is not excluded.IMPRESSION:No acute findings.Professional interpretation provided by [facility] [address].Thank you for this referral.< >Reported By: WILLIAM SPARROW M.D.Signed In NovaPro By: WILLIAM SPARROW M.D. << Signature on File>> Reported By: WILLIAM SPARROW M.D. Signed By: WILLIAM SPARROW M.D.Tests performed at:[address] [phone] Normal [facility] UA W/C&Son 07-12-2017 Bilirubin Ql (U) Negative Normal NEGATIVE [facility] Comment on above: Order Comment: Sourc e: Clean Catch .. Y Performed By: #### L 200.3001, L200.3190 ####ML - U[facility] PIVCCYFUFM973 [place] [address] URINE APPEARANC CLEAR Normal CLEAR [facility] Comment on above: Order Comment: Sourc e: Clean Catch .. Y Performed By: #### L 200.3001, L200.3190 ####ML - UH VSQMWOSRGQ907 [place] [address] URINE KETONE Negative Normal NEGATIVE [facility] Comment on above: Order Comment: Sourc e: Clean Catch .. Y Performed By: #### L 200.3001, L200.3190 ####ML - UH GEIWJZSSYQ820 [place] [address] URINE SPECIFIC 1.020 Normal 1.001-1.035 [facility] Comment on above: Order Comment: Sourc e: Clean Catch .. Y Performed By: #### L 200.3001, L200.3190 ####ML - YGVXYGSGSX[address] [place] [address] URINE UROBILINO 1.0 EU/DL Normal 0.2-1.0 [facility] Comment on above: Order Comment: Sourc e: Clean Catch .. Y Performed By: #### L 200.3001, L200.3190 ####ML - UH MPIIOJMEMR[address] [place] [address] Urine, color YELLOW Normal YELLOW [facility] Comment on above: Order Comment: Sourc e: Clean Catch .. Y Performed By: #### L 200.3001, L200.3190 ####ML - CTCGRKQORY[address] [place] [address] Urine, glucose presence Negative Normal NEGATIVE [facility] Comment on above: Order Comment: Sourc e: Clean Catch .. Y Performed By: #### L 200.300, L200.3190 ####ML - ZCWZUNOBFX8[address] [place] [address] Urine, hemoglobin presence Negative Normal NEGATIVE [facility] Comment on above: Order Comment: Sourc e: Clean Catch .. Y Performed By: #### L 200.3001, L200.3190 ####ML - UH YOSYNWLGOO[address] [place] [address] Urine, leukocyte esterase presence Negative Normal NEGATIVE [facility] Comment on above: Order Comment: Sourc e: Clean Catch .. Y Performed By: #### L 200.3001, L200.3190 ####ML - DKZWZQPCBN[address] [place] [address] Urine, nitrite presence Negative Normal NEGATIVE [facility] Comment on above: Order Comment: Sourc e: Clean Catch .. Y Performed By: #### L 200.3001, L200.3190 ####ML - UH AAUUSWFXDE[address] [place] [address] Urine, pH 7.0 [pH] Normal 5.0-8.0 [facility] Comment on above: Order Comment: Sourc e: Clean Catch .. Y Performed By: #### L 200.3001, L200.3190 ####ML - UH SLUKLAVAST[address] [place] [address] Urine, protein presence TRACE Normal NEGATIVE [facility] Comment on above: Order Comment: Sourc e: Clean Catch .. Y Performed By: #### L 200.3001, L200.3190 ####ML - U[facility] KOKIDRQFNA[address] [facility] [place] [address] UCon 07-12-2017 UC No Growth Normal [facility] Comment on above: Performed By: #### M 120.0100 ####ML - UH PNAQIUETBW[address] [place] [address] URINE MICROSCOPon 07-12-2017 Urine, erythrocytes 1-3 Normal 0-2 [facility] Comment on above: Order Comment: Sourc e: Clean Catch .. Y Performed By: #### L 200.3001, L200.3190 ####ML - UH FFDKEXEBHZ[address] [place] [address] Urine, leukocytes 0 /uL Normal 0-5 [facility] Comment on above: Order Comment: Sourc e: Clean Catch .. Y Performed By: #### L 200.3001, L200.3190 ####ML - U[facility] NDSEKQPBNF[address] [place] [address] Urine, mucus presence in sediment TR Normal NEGATIVE [facility] Comment on above: Order Comment: Sourc e: Clean Catch .. Y Performed By: #### L 200.3001, L200.3190 ####ML - UH EXHJJLCSET[address] [place] [address] Vital Signs Date Time Vital Sign Value Performing Clinician Facility 05-23-2025 22:22-0400 Heart rate 98 /min Dr. Pooja Ding MD Work Phone: [facility] 05-23-2025 22:22-0400 Respiratory rate 18 /min Dr. Pooja Ding MD Work Phone: [facility] 05-23-2025 22:22-0400 SaO2% (BldA) [Mass fraction] 97 % Dr. Pooja Ding MD Work Phone: 5(797)707-428738 [place] [address] 05-23-2025 20:46-0400 Body height 175.[address] Pooja Ding MD Work Phone: 8(174)072-187138 [place] [address] 05-23-2025 20:46-0400 Body mass index (BMI) [Ratio] 22.7 kg/m2 Dr. Pooja Ding MD Work Phone: 6(954)711-680338 [place] [address] 05-23-2025 20:46-0400 Body temperature 97 [degF] Dr. Pooja Ding MD Work Phone: 5(535)578-411338 [place] [address] 05-23-2025 20:46-0400 Body weight 69.[address] Pooja Ding MD Work Phone: 2(838)608-243338 [place] [address] 05-23-2025 20:46-0400 Diastolic blood pressure 69 mm[Hg] Dr. Pooja Ding MD Work Phone: 6(671)035-005538 [place] [address] 05-23-2025 20:46-0400 Systolic blood pressure 128 mm[Hg] Dr. Pooja Ding MD Work Phone: 5(464)896-987338 [place] [address] 05-12-2025 11:54-0400 Body temperature 98 [degF] Dr. Pooja Ding MD Work Phone: 2(939)948-937038 [place] [address] 05-12-2025 11:54-0400 Diastolic blood pressure 83 mm[Hg] Dr. Pooja Ding MD Work Phone: 9(186)007-175838 [place] [address] 05-12-2025 11:54-0400 Heart rate 89 /min Dr. Pooja Ding MD Work Phone: 9(797)225-297438 [place] [address] 05-12-2025 11:54-0400 Respiratory rate 20 /min Dr. Pooja Ding MD Work Phone: 5(828)926-677938 [place] [address] 05-12-2025 11:54-0400 SaO2% (BldA) [Mass fraction] 100 % Dr. Pooja Ding MD Work Phone: 6(534)136-599638 [place] [address] 05-12-2025 11:54-0400 Systolic blood pressure 130 mm[Hg] Dr. Pooja Ding MD Work Phone: [facility] 05-12-2025 10:07-0400 Body height 177.[address] Pooja Ding MD Work Phone: [facility] 05-12-2025 10:07-0400 Body mass index (BMI) [Ratio] 22.2 kg/m2 Dr. Pooja Ding MD Work Phone: [facility] 05-12-2025 10:07-0400 Body weight 70.[address] Pooja Ding MD Work Phone: [facility] 05-09-2025 15:04-0400 Body mass index (BMI) [Ratio] 23.05 kg/m2 Krislyn Aberegg PA Work Phone: [facility] 05-09-2025 15:04-0400 Body temperature 97.2 [degF] Krislyn Aberegg PA Work Phone: [facility] 05-09-2025 15:04-0400 Body weight 69.4 kg Krislyn Aberegg PA Work Phone: [facility] 05-09-2025 15:04-0400 Diastolic blood pressure 72 mm[Hg] Krislyn Aberegg PA Work Phone: [facility] 05-09-2025 15:04-0400 Heart rate 75 /min Krislyn Aberegg PA Work Phone: [facility] 05-09-2025 15:04-0400 Respiratory rate 16 /min Krislyn Aberegg PA Work Phone: [facility] 05-09-2025 15:04-0400 SaO2% (BldA) [Mass fraction] 99 % Krislyn Aberegg PA Work Phone: [facility] 05-09-2025 15:04-0400 Systolic blood pressure 110 mm[Hg] Krislyn Aberegg PA Work Phone: [facility] 02-12-2025 07:08-0400 Body height 173.5 cm Dori Black PA-C Work Phone: [facility] 02-12-2025 07:08-0400 Body mass index (BMI) [Ratio] 22.75 kg/m2 Dori Black PA-C Work Phone: [facility] 02-12-2025 07:08-0400 Body temperature 97.7 [degF] Dori Black PA-C Work Phone: [facility] 02-12-2025 07:08-0400 Body weight 68.49 kg Dori Black PA-C Work Phone: [facility] 02-12-2025 07:08-0400 Diastolic blood pressure 66 mm[Hg] Dori Black PA-C Work Phone: [facility] 02-12-2025 07:08-0400 Heart rate 88 /min Dori Black PA-C Work Phone: [facility] 02-12-2025 07:08-0400 Respiratory rate 16 /min Dori Black PA-C Work Phone: [facility] 02-12-2025 07:08-0400 SaO2% (BldA) [Mass fraction] 96 % Dori Black PA-C Work Phone: [facility] 02-12-2025 07:08-0400 Systolic blood pressure 96 mm[Hg] Dori Black PA-C Work Phone: [facility] 10-30-2024 15:52-0500 Body temperature 99.1 [degF] Vicky Gonzales APRN.CVICU NURSE Work Phone: [facility] 10-30-2024 15:52-0500 Body weight 68.2 kg Vicky Gonzales APRN.CVICU NURSE Work Phone: [facility] 10-30-2024 15:52-0500 Diastolic blood pressure 70 mm[Hg] Vicky Gonzales APRN.CVICU NURSE Work Phone: [facility] 10-30-2024 15:52-0500 Heart rate 110 /min Vicky Gonzales MOVER HELPER.CVICU NURSE Work Phone: [facility] 10-30-2024 15:52-0500 Respiratory rate 18 /min Vicky Gonzales MOVER HELPER.CVICU NURSE Work Phone: [facility] 10-30-2024 15:52-0500 SaO2% (BldA) [Mass fraction] 97 % Vicky Gonzales MOVER HELPER.CVICU NURSE Work Phone: [facility] 10-30-2024 15:52-0500 Systolic blood pressure 118 mm[Hg] Vicky Gonzales MOVER HELPER.CVICU NURSE Work Phone: [facility] 08-21-2024 12:35-0400 Body temperature 97.2 [degF] Krystal Henson MOVER HELPER.CVICU NURSE Work Phone: [facility] 08-21-2024 12:35-0400 Body weight 69.5 kg Krystal Henson MOVER HELPER.CVICU NURSE Work Phone: [facility] 08-21-2024 12:35-0400 Diastolic blood pressure 70 mm[Hg] Krystal Henson MOVER HELPER.CVICU NURSE Work Phone: [facility] 08-21-2024 12:35-0400 Heart rate 92 /min Krystal Henson MOVER HELPER.CVICU NURSE Work Phone: [facility] 08-21-2024 12:35-0400 Respiratory rate 20 /min Krystal Henson MOVER HELPER.CVICU NURSE Work Phone: [facility] 08-21-2024 12:35-0400 SaO2% (BldA) [Mass fraction] 98 % Krystal Henson MOVER HELPER.CVICU NURSE Work Phone: [facility] 08-21-2024 12:35-0400 Systolic blood pressure 115 mm[Hg] Krystal Henson MOVER HELPER.CVICU NURSE Work Phone: [facility] 12-05-2023 16:02-0500 Body temperature 99.39 [degF] Rupali Duron PA-C Work Phone: [facility] 12-05-2023 16:02-0500 Body weight 69.85 kg Rupalierrol Delaneyy PA-C Work Phone: [facility] 12-05-2023 16:02-0500 Diastolic blood pressure 78 mm[Hg] Rupali Athy PA-C Work Phone: [facility] 12-05-2023 16:02-0500 Heart rate 116 /min Rupali Athy PA-C Work Phone: [facility] 12-05-2023 16:02-0500 SaO2% (BldA) [Mass fraction] 97 % Rupali Athy PA-C Work Phone: [facility] 12-05-2023 16:02-0500 Systolic blood pressure 122 mm[Hg] Rupali Athy PA-C Work Phone: [facility] 10-16-2023 17:41-0500 Body height 177.8 cm [facility] 10-16-2023 17:41-0500 Body mass index (BMI) [Percentile] Per age and sex 49.8 % [facility] 10-16-2023 17:41-0500 Body mass index (BMI) [Ratio] 22.4 kg/m2 [facility] 10-16-2023 17:41-0500 Body temperature 98 [degF] [facility] 10-16-2023 17:41-0500 Body weight 71.07 kg [facility] 10-16-2023 17:41-0500 Diastolic blood pressure 52 mm[Hg] [facility] 10-16-2023 17:41-0500 Heart rate 86 /min [facility] 10-16-2023 17:41-0500 Respiratory rate 18 /min [facility] 10-16-2023 17:41-0500 SaO2% (BldA) [Mass fraction] 98 % [facility] 10-16-2023 17:41-0500 Systolic blood pressure 128 mm[Hg] [facility] 09-04-2022 08:53-0500 Body weight 67.22 kg Coco Zurita APRN.CNP Work Phone: [facility] 09-04-2022 08:53-0500 Diastolic blood pressure 64 mm[Hg] Coco Yudith MOVER HELPER.CVICU NURSE Work Phone: [facility] 09-04-2022 08:53-0500 Heart rate 75 /min Coco Yudith MOVER HELPER.CVICU NURSE Work Phone: [facility] 09-04-2022 08:53-0500 SaO2% (BldA) [Mass fraction] 96 % Coco Yudith MOVER HELPER.CVICU NURSE Work Phone: [facility] 09-04-2022 08:53-0500 Systolic blood pressure 104 mm[Hg] Coco Yudith MOVER HELPER.CVICU NURSE Work Phone: [facility] 06-07-2022 12:34-0400 Body temperature 98.2 [degF] Tan Angel MOVER HELPER.CVICU NURSE Work Phone: [facility] 06-07-2022 12:34-0400 Body weight 66.86 kg Tan Angel MOVER HELPER.CVICU NURSE Work Phone: [facility] 06-07-2022 12:34-0400 Diastolic blood pressure 72 mm[Hg] Tan Angel MOVER HELPER.CVICU NURSE Work Phone: [facility] 06-07-2022 12:34-0400 Heart rate 112 /min Tan Angel MOVER HELPER.CVICU NURSE Work Phone: [facility] 06-07-2022 12:34-0400 Respiratory rate 20 /min Tan Angel MOVER HELPER.CVICU NURSE Work Phone: [facility] 06-07-2022 12:34-0400 SaO2% (BldA) [Mass fraction] 98 % Tan Angel MOVER HELPER.CVICU NURSE Work Phone: [facility] 06-07-2022 12:34-0400 Systolic blood pressure 112 mm[Hg] Tan Angel MOVER HELPER.CVICU NURSE Work Phone: [facility] 03-23-2022 16:26-0400 Respiratory rate 16 /min [facility] Work Phone: 03-23-2022 14:45-0400 Body height 175.26 cm [facility] Work Phone: 03-23-2022 14:45-0400 Body mass index (BMI) [Ratio] 22.1 kg/m2 [facility] Work Phone: 03-23-2022 14:45-0400 Body temperature 98 [degF] [facility] Work Phone: 03-23-2022 14:45-0400 Body weight 68.03 kg [facility] Work Phone: 03-23-2022 14:45-0400 Diastolic blood pressure 66 mm[Hg] [facility] Work Phone: 03-23-2022 14:45-0400 Heart rate 85 /min [facility] Work Phone: 03-23-2022 14:45-0400 SaO2% (BldA) [Mass fraction] 99 % [facility] Work Phone: 03-23-2022 14:45-0400 Systolic blood pressure 116 mm[Hg] [facility] Work Phone: Encounters Encounter Date Encounter Type Care Provider Facility Start: 05-23-2025 End: 05-23-2025 Emergency department patient visit Dr. Pooja Ding MD Work Phone: -Emergency Department Work Phone: Start: 05-12-2025 End: 05-12-2025 Emergency department patient visit Dr. Pooja Ding MD Work Phone: -Emergency Department Work Phone: Start: 05-09-2025 End: 05-09-2025 ambulatory RENÉ BAKER Facility:[facility] Start: 05-09-2025 End: 05-09-2025 Patient encounter procedure Dolores ESPINOZA Work Phone: [facility] Comment on above: Sore throat (Primary Dx) Start: 02-13-2025 End: 02-13-2025 Follow-up encounter Dori Black PA-C Work Phone: [facility] Comment on above: Results Start: 02-12-2025 End: 02-24-2025 Refill Dori Black PA-C Work Phone: [facility] Comment on above: Med Change Request Start: 02-12-2025 Encounter for genera l adult medical examination without abnormal findings DORI BLACK [facility] Start: 02-12-2025 End: 02-12-2025 Patient encounter [...] encounter status Dori Black PA-C Work Phone: [facility] Work Phone: Start: 02-12-2025 End: 02-12-2025 ambulatory DORI BLACK Facility:[facility] Start: 01-24-2025 End: 01-26-2025 Refill Pooja Rees MD Work Phone: [facility] Comment on above: Refill Request Start: 10-31-2024 End: 10-31-2024 Telephone encounter Dolores ESPINOZA Work Phone: [facility] Comment on above: Results Start: 10-30-2024 End: 10-30-2024 Subsequent hospital visit by physician Julia [facility] Work Phone: Radiology Comment on above: Acute cough [R05.1] Start: 10-30-2024 End: 10-30-2024 ambulatory RENÉ BAKER Facility:[facility] Start: 10-30-2024 End: 10-30-2024 Patient encounter procedure Vicky Gonzales APRN.CVICU NURSE Work Phone: [facility] Comment on above: Sore throat (Primary Dx); Acute cough; URI, acute Start: 08-21-2024 End: 08-21-2024 Subsequent hospital visit by physician Xr [facility] Work Phone: Radiology Comment on above: Acute cough [R05.1] Start: 08-21-2024 End: 08-21-2024 ambulatory SELF Facility:[facility] Start: 08-21-2024 End: 08-21-2024 Office outpatient visit 25 minutes Krystal Henson APRN.CVICU NURSE Work Phone: [facility] Comment on above: Acute cough (Primary Dx); Mild intermittent asthma, uncomplicated; Fatigue, unspecified type Start: 04-21-2024 End: 04-23-2024 Evaluation and management of inpatient DOCTOR ON [facility] Start: 12-05-2023 End: 12-05-2023 Patient encounter procedure Rupali Duron PA-C Work Phone: [facility] Comment on above: Influenza A (Primary Dx) Start: 10-16-2023 End: 10-16-2023 Emergency department patient visit [facility] Work Phone: Start: 09-30-2023 Refill Coco gates APRN.CVICU NURSE Work Phone: [facility] Comment on above: Refill Request Start: 11-02-2022 Telephone encounter Coco Brand APRN.CVICU NURSE Work Phone: [facility] Comment on above: Results Start: 09-08-2022 Telephone encounter Coco Brand APRN.CVICU NURSE Work Phone: [facility] Comment on above: Results Start: 09-04-2022 End: 09-04-2022 Patient encounter procedure Coco Zurita APRN.CVICU NURSE Work Phone: [facility] Comment on above: Syncope, unspecified syncope type (Primary Dx); Palpitations; Diaphoresis; Migraine with aura, not intractable, without status migrainosus; Moderate persistent asthma without complication; History of asthma Start: 08-07-2022 Refill Pooja carl MD Work Phone: [facility] Comment on above: Refill Request Start: 06-07-2022 End: 06-07-2022 Patient encounter procedure Tan Ortiz APRN.CVICU NURSE Work Phone: [facility] Comment on above: URI, acute (Primary Dx); Sore throat; History of asthma Start: 03-23-2022 End: 03-23-2022 Emergency department patient visit [facility] Start: 07-31-2017 End: 07-31-2017 Emergency department patient visit KELLY LINO Facility[facility] Start: 07-13-2017 End: 07-13-2017 Emergency department patient visit [facility] Start: 07-12-2017 End: 07-13-2017 Emergency department patient visit MAYANK GARY Facility:[facility] Procedures Date Procedure Procedure Detail Performing Clinician Start: 05-23-2025 CT cervical spine wi thout contrast Dr. Pooja Ding MD Work Phone: Start: 05-23-[address] Karel Ding MD Work Phone: Start: 05-23-2025 CT of head without contrast Dr. Pooja Ding MD Work Phone: Start: 05-12-2025 X-ray of chest, PA a nd lateral views Dr. Pooja Ding MD Work Phone: Start: 05-09-2025 Iadna streptococcus group a amplified probe tq Dolores Souza PA Work Phone: Start: 10-30-2024 Radiologic exam ches t 2 views Vicky Gonzales APRN.CVICU NURSE Work Phone: Start: 10-30-2024 STREP A MOLECULAR (POC) Claribel Starr APRN.CVICU NURSE Work Phone: Start: 10-24-2024 Radiologic exam ches t 2 views Krystal MOVER HELPER.CVICU NURSE Work Phone: Start: 04-21-2024 Irrigation of Joints using Irrigating Substance, Percutaneous Endoscopic Approach DOCTOR NO Start: 12-05-2023 INFLUENZA A&B MOLECU LAR (POC) Rupali Duron PA-C Work Phone: Start: 10-16-2023 X-ray of both feet Start: 09-04-2022 Ecg routine ecg w/le ast 12 lds i&r only Coco Zurita MOVER HELPER.CVICU NURSE Work Phone: Start: 06-07-2022 STREP A MOLECULAR (POC) [facility] Provider Start: 03-23-2022 X-ray of cervical spine Start: 03-23-2022 X-ray of lumbar spin e, two or three views Start: 08-08-2019 Adult depression scr eening assessment Tan Ortiz MOVER HELPER.CVICU NURSE Work Phone: Plan of Treatment Date Care Activity Detail Author Start: 09-04-2027 Urine microalbumin profile [facility] Start: 02-12-2026 Annual PCP Team [employer] khadijah Disease Visit Annual PCP Team Chronic Disease Visit [facility] Start: 02-12-2026 Anxiety Screening Anxiety Screening [facility] Start: 02-12-2026 Asthma Action Plan Asthma Action Imer n [facility] Comment on above: Postponed from 11/24 (Postponed - Not Clinically Indicated) Start: 02-12-2026 Covid-19 Vaccine () Covid-19 Vaccine () [facility] Comment on above: Postponed from 06/29 (Declined at this time) Start: 02-12-2026 Meningococcal B Vacc ine (1 of 2 - Standard) Meningococcal B Vaccine (1 of 2 - Standard) [facility] Comment on above: Postponed from 11/24 (Declined at this time) Start: 02-12-2026 Spirometry Spirometry [facility] Comment on above: Postponed from 11/24 (Declined at this time) Start: 02-12-2026 End: 02-12-2026 Patient encounter procedure 02/12/2026 7:00 AM EDT Office Visit [facility] [address] [place] [address] Dori Black PA-C [address] [place] [address] physical [facility] Comment on above: physical Start: 06-29-2025 Influenza vaccination Influenza Vacc ine (#1) [facility] Start: 05-23-[address] [facility] Start: 05-12-[address] [facility] Start: 04-27-2025 Influenza vaccination Influenza Vacc ine (#1) [facility] Comment on above: Postponed from 06/29 (Declined at this time) Start: 02-12-2025 End: 05-14-2025 Basic metabolic 2000 panel - Serum or Plasma [facility] Comment on above: Expected: 02/12/2025 , Expires: 05/14/2025 Start: 02-12-2025 End: 05-14-2025 CBC W Auto Differential panel - Blood [facility] Comment on above: Expected: 02/12/2025 , Expires: 05/14/2025 Start: 02-12-2025 End: 05-14-2025 Hemoglobin A1c in Blood [facility] Comment on above: Expected: 02/12/2025 , Expires: 05/14/2025 Start: 02-12-2025 End: 05-14-2025 Hepatitis C virus Ab [Presence] in Serum [facility] Comment on above: Expected: 02/12/2025 , Expires: 05/14/2025 Start: 02-12-2025 End: 05-14-2025 HIV 1+2 Ab [Presence] in Serum or Plasma by Immunoassay [facility] Comment on above: Expected: 02/12/2025 , Expires: 05/14/2025 Start: 02-12-2025 End: 05-14-2025 LIPID PANEL, NONFASTING [facility] Work Phone: Comment on above: Expected: 02/12/2025 , Expires: 05/14/2025 Start: 06-29-2024 Covid-19 Vaccine () Covid-19 Vaccine () [facility] Start: 06-29-2024 Influenza vaccination Influenza Vacc ine (#1) [facility] Start: 2023 Pneumococcal vaccination Pneum ococcal Vaccine (1 of 2 - PCV) [facility] Start: 10-16-[address] [facility] Start: 09-04-2023 Annual PCP Team [employer] khadijah Disease Visit Annual PCP Team Chronic Disease Visit [facility] Start: 09-04-2023 COVID-19 VACCINE (#1) COVID-19 VACCI NE (#1) [facility] Comment on above: Postponed from 05/24 (Declined at this time) Start: 06-29-2023 Influenza vaccination Influenza Vacc ine (#1) [facility] Start: 04-27-2023 Influenza vaccination INFLUENZA (#1) [facility] Comment on above: Postponed from 06/29 (Declined at this time) Start: 2022 Anxiety Screening Anxiety Screening [facility] Start: 2022 Hepatitis C Screening Hepatitis C [facility] Start: 2022 Hepatitis C screening Hepatitis C [facility] Start: 2022 HIV Screening HIV Screening [facility] Start: 2022 HIV screening HIV Screening [facility] Start: 2022 Spirometry Spirometry [facility] Start: 09-04-2022 End: 11-04-2022 CBC panel - Blood by Automated count CBC Lab Routine Migraine with aura, not intractable, without status migrainosus Palpitations Syncope, unspecified syncope type Diaphoresis Expected: 09/04/2022, Expires: 11/04/2022 [facility] Work Phone: Comment on above: Expected: 09/04/2022 , Expires: 11/04/2022 Start: 09-04-2022 End: 11-04-2022 Comprehensive metabolic 2000 panel - Serum or Plasma COMP METABOLIC PANEL Lab Routine Migraine with aura, not intractable, without status migrainosus Palpitations Syncope, unspecified syncope type Diaphoresis Expected: 09/04/2022, Expires: 11/04/2022 [facility] Work Phone: Comment on above: Expected: 09/04/2022 , Expires: 11/04/2022 Start: 09-04-2022 End: 11-04-2022 Hemoglobin A1c in Blood HGB A1C Lab Routine Migraine with aura, not intractable, without status migrainosus Palpitations Syncope, unspecified syncope type Diaphoresis Expected: 09/04/2022, Expires: 11/04/2022 [facility] Work Phone: Comment on above: Expected: 09/04/2022 , Expires: 11/04/2022 Start: 09-04-2022 End: 11-04-2022 Thyrotropin [Units/volume] in Serum or Plasma TSH BLD Lab Routine Migraine with aura, not intractable, without status migrainosus Palpitations Syncope, unspecified syncope type Diaphoresis Expected: 09/04/2022, Expires: 11/04/2022 [facility] Work Phone: Comment on above: Expected: 09/04/2022 , Expires: 11/04/2022 Start: 06-29-2022 Influenza vaccination INFLUENZA (#1) [facility] Start: 2020 Meningococcal B Vacc ine (1 of 2 - Standard) Meningococcal B Vaccine (1 of 2 - Standard) [facility] Start: 2020 Meningococcal B Vacc ine: Consider Based On Risk (1 of 2 - Patient Seeks Protection) Meningococcal B Vaccine: Consider Based On Risk (1 of 2 - Patient Seeks Protection) [facility] Start: 2020 MENINGOCOCCAL CONJUG ATE (1 - 2-dose series) MENINGOCOCCAL CONJUGATE (1 - 2-dose series) [facility] Start: 08-08-2020 Adult depression screening assessment DEPRESSION SCREENING [facility] Start: 2018 PEDS TO ADULT TRANSI TION ANNUAL ASSESSMENT PEDS TO ADULT TRANSITION ANNUAL ASSESSMENT [facility] Start: 2016 PEDS TO ADULT TRANSI TION INITIAL DISCUSSION PEDS TO ADULT TRANSITION INITIAL DISCUSSION [facility] Start: 2015 HPV VACCINE (1 - Mal e 2-dose series) HPV VACCINE (1 - Male 2-dose series) [facility] Start: 2015 Urine microalbumin profile DTAP,TDAP,TD (6 - Tdap) [facility] Start: 2014 MENINGOCOCCAL B: Consider based on risk (1 of 2 - Risk Bexsero 2-dose series) MENINGOCOCCAL B: Consider based on risk (1 of 2 - Risk Bexsero 2-dose series) [facility] Start: 2010 Pneumococcal vaccination Pneum ococcal Vaccine (1 of 2 - PCV) [facility] Start: 2008 ASTHMA CONTROL TEST ASTHMA CONTROL T EST [facility] Start: 2006 ASTHMA ACTION PLAN ASTHMA ACTION IMER N [facility] Start: 05-24-2005 COVID-19 VACCINE (#1) COVID-19 VACCI NE (#1) [facility] ALERE STREP A TEST (AG) ALERE ST REP A TEST (AG) Lab Routine Sore throat Ordered: 06/07/2022 [facility] Work Phone: Comment on above: Ordered: 06/07/2022 COVID & INFLUENZA A/ B & RSV PCR, ROUTINE COVID & INFLUENZA A/B & RSV PCR, ROUTINE Microbiology Routine URI, acute Ordered: 10/30/2024 [facility] Work Phone: Comment on above: Ordered: 10/30/2024 COVID, FLU A/B + RSV , ROUTINE COVID, FLU A/B + RSV, ROUTINE Microbiology Routine URI, acute Ordered: 06/07/2022 [facility] Work Phone: Comment on above: Ordered: 06/07/2022 OUTSIDE VENDOR CARDI AC OUTPATIENT EVENT RECORDER OUTSIDE VENDOR CARDIAC OUTPATIENT EVENT RECORDER Holter Routine Migraine with aura, not intractable, without status migrainosus Palpitations Syncope, unspecified syncope type Diaphoresis Ordered: 09/04/2022 [facility] Work Phone: Comment on above: Ordered: 09/04/2022 Patient Education [facility] Work Phone: Patient referral [facility] Work Phone: ROUTINE FLU A/B + RSV ROUTINE FL U A/B + RSV Lab Routine URI, acute Ordered: 06/07/2022 [facility] Work Phone: Comment on above: Ordered: 06/07/2022 SARS-CoV-2 (COVID-19 ) RNA [Presence] in Respiratory specimen by MIRELLA with probe detection 2019 CORONAVIRUS Microbiology Routine URI, acute Ordered: 06/07/2022 [facility] Work Phone: Comment on above: Ordered: 06/07/2022 [facility] Immunizations Immunization Date Immunization Notes Care Provider Nai sapp 02-12-2025 pneumococcal conjuga te (PCV20) vaccine, 20 valent (PREVNAR 20) Dori Black PA-C Work Phone: [facility] 02-12-2025 pneumococcal Conjuga te, unspecified formulation Dori Black PA-C Work Phone: [facility] 07-18-2022 Human Papillomavirus 9-valent vaccine Coco Yudith MOVER HELPER.CVICU NURSE Work Phone: [facility] 07-18-2022 meningococcal polysaccharide (groups A, C, Y and W-135) diphtheria toxoid conjugate vaccine (MCV4P) Coco Yudith MOVER HELPER.CVICU NURSE Work Phone: [facility] 08-08-2019 influenza, injectabl e, quadrivalent, contains preservative Tan Angel MOVER HELPER.CVICU NURSE Work Phone: [facility] 08-08-2019 influenza virus vacc ine, unspecified formulation Coco Yudith MOVER HELPER.CVICU NURSE Work Phone: [facility] 09-04-2017 Human Papillomavirus 9-valent vaccine Coco Yudith MOVER HELPER.CVICU NURSE Work Phone: [facility] 09-04-2017 meningococcal polysaccharide (groups A, C, Y and W-135) diphtheria toxoid conjugate vaccine (MCV4P) Coco Yudith MOVER HELPER.CVICU NURSE Work Phone: [facility] 09-04-2017 tetanus toxoid, redu robert diphtheria toxoid, and acellular pertussis vaccine, adsorbed Coco Yudith MOVER HELPER.CVICU NURSE Work Phone: [facility] 08-01-2012 influenza virus vacc ine, unspecified formulation Tan Angel MOVER HELPER.CVICU NURSE Work Phone: [facility] 06-16-2011 hepatitis A vaccine, unspecified formulation Tan Angel MOVER HELPER.[facility] Work Phone: [facility] 06-16-2011 measles, mumps and rubella virus vaccine Tan Ortiz APRN.CVICU NURSE Work Phone: [facility] 06-16-2011 poliovirus vaccine, inactivated Tan Ortiz APRN.CVICU NURSE Work Phone: [facility] 06-16-2011 varicella virus vaccine Maged aponte Angel MOVER HELPER.CVICU NURSE Work Phone: [facility] 03-01-2010 diphtheria, tetanus toxoids and acellular pertussis vaccine Tan Ortiz APRN.[facility] Work Phone: [facility] Work Phone: 03-01-2010 hepatitis A vaccine, pediatric/adolescent dosage, 2 dose schedule Coco Zurita APRN.[facility] Work Phone: [facility] 03-01-2010 hepatitis A vaccine, unspecified formulation Tan Ortiz APRN.[facility] Work Phone: [facility] Work Phone: 12-14-2009 haemophilus influenz ae type b vaccine, HbOC conjugate Tan Ortiz APRN.[facility] Work Phone: [facility] Work Phone: 12-14-2009 haemophilus influenz ae type b vaccine, PRP-T conjugate Cocotasia Zurita MOVER HELPER.[facility] Work Phone: [facility] 03-21-2006 measles, mumps and rubella virus vaccine Tan Ortiz APRN.CVICU NURSE Work Phone: [facility] Work Phone: 03-21-2006 varicella virus vaccine Magedsylvester aponte MOVER HELPER.CVICU NURSE Work Phone: [facility] Work Phone: 01-11-2006 pneumococcal conjuga te vaccine, 7 valent Tan Ortiz APRN.CVICU NURSE Work Phone: [facility] Work Phone: 12-14-2005 diphtheria, tetanus toxoids and acellular pertussis vaccine Tan Angel MOVER HELPER.CVICU NURSE Work Phone: [facility] Work Phone: 12-14-2005 hepatitis B vaccine, pediatric or pediatric/adolescent dosage Tan Angel MOVER HELPER.CVICU NURSE Work Phone: [facility] Work Phone: 09-19-2005 hepatitis B vaccine, pediatric or pediatric/adolescent dosage Tan Angel MOVER HELPER.[facility] Work Phone: [facility] Work Phone: 09-19-2005 poliovirus vaccine, inactivated Tan Angel MOVER HELPER.[facility] Work Phone: [facility] Work Phone: 05-24-2005 diphtheria, tetanus toxoids and acellular pertussis vaccine Tan Angel MOVER HELPER.[facility] Work Phone: [facility] Work Phone: 05-24-2005 haemophilus influenz ae type b vaccine, HbOC conjugate Tan Angel MOVER HELPER.CVICU NURSE Work Phone: [facility] Work Phone: 05-24-2005 pneumococcal conjuga te vaccine, 7 valent Tan Angel MOVER HELPER.[facility] Work Phone: [facility] Work Phone: 03-28-2005 diphtheria, tetanus toxoids and acellular pertussis vaccine Tan Angel MOVER HELPER.CVICU NURSE Work Phone: [facility] Work Phone: 03-28-2005 haemophilus influenz ae type b vaccine, HbOC conjugate Tan Angel MOVER HELPER.CVICU NURSE Work Phone: [facility] Work Phone: 03-28-2005 pneumococcal conjuga te vaccine, 7 valent Tan Angel MOVER HELPER.CVICU NURSE Work Phone: [facility] Work Phone: 03-28-2005 poliovirus vaccine, inactivated Tan Angel MOVER HELPER.CVICU NURSE Work Phone: [facility] Work Phone: 01-23-2005 diphtheria, tetanus toxoids and acellular pertussis vaccine Tan Ortiz MOVER HELPER.CVICU NURSE Work Phone: [facility] Work Phone: 01-23-2005 diphtheria, tetanus toxoids and acellular pertussis vaccine, 5 pertussis antigens Coco Zurita MOVER HELPER.CVICU NURSE Work Phone: [facility] 01-23-2005 haemophilus influenz ae type b vaccine, HbOC conjugate Tan Ortiz MOVER HELPER.CVICU NURSE Work Phone: [facility] Work Phone: 01-23-2005 pneumococcal conjuga te vaccine, 7 valent Tan Ortiz MOVER HELPER.CVICU NURSE Work Phone: [facility] Work Phone: 01-23-2005 poliovirus vaccine, inactivated Tan King MOVER HELPER.[facility] Work Phone: [facility] Work Phone: 2004 hepatitis B vaccine, pediatric or pediatric/adolescent dosage Tan Ortiz MOVER HELPER.CVICU NURSE Work Phone: [facility] Work Phone: Payers Date Payer Category Payer Self-pay [id number] [phone] [id number] 2024 [facility] PPO [id number] 2024 Unknown [employer] BS FEP PPO [id number] 2024-Present [phone] [address] [place] [address] PPO [id number] 2024 Unknown [id number] 2018 Medicaid [id number] 2004 Unknown [id number] Unknown [id number] Unknown [id number] Unknown [id number] Unknown [id number] Worker's Compensation [id number] Social History Date Type Detail Facility Start: 03-23-2022 End: 10-16-2023 Tobacco smoking status PRIS Unknown if ever smoked [facility] Start: 2005 Sex Assigned At Male [facility] Start: 06-07-2022 End: 02-12-2025 Tobacco smoking status PRIS Never smoked tobacco [facility] History of tobacco use Passive smoker [facility] Start: 06-07-2022 End: 02-12-2025 Tobacco use and exposure Smokeless tobacco non-user [facility] Start: 06-07-2022 End: 10-30-2024 Alcohol intake Not Asked [facility] Start: 06-07-2022 Tobacco Comment mom smokes outside C [facility] Start: 2004 Sex Assigned At Not on file [facility] Start: 05-28-2022 End: 06-07-2022 Exposure to SARS-CoV-2 (event) Yes [facility] Start: 08-22-2022 History SDOH Physica l Activity DPW 5 [facility] Start: 08-22-2022 History SDOH Physica l Activity MPS 15 [facility] Start: 08-22-2022 History SDOH Food Worry 1 [facility] Start: 08-22-2022 History SDOH Transpo rt Med 2 [facility] Start: 08-25-2022 End: 09-04-2022 Exposure to SARS-CoV-2 (event) Not sure [facility] Start: 09-04-2022 End: 02-12-2025 History of Social function [facility] Start: 09-04-2022 End: 02-12-2025 Tobacco use panel [facility] How hard is it for y ou to pay for the very basics like food, housing, medical care, and heating Not hard at all [facility] (I/We) worried wheth er (my/our) food would run out before (I/we) got money to buy more. Never true [facility] At any time in the past 12 months, were you homeless or living in detention [including now]? No [facility] Start: 08-11-2022 Gender identity Identifies as male gender (finding) [facility] Start: 02-12-2025 End: 05-09-2025 Alcoholic beverage intake Ex-drinker (finding) [facility] Start: 02-12-2025 Tobacco Comment mom smokes out sideUses nicotine pouches (tobacco free) [facility] Start: 05-12-2025 End: 05-23-2025 Tobacco smoking status NHIS Smokes tobacco daily (finding) [facility] Mental Status Date Assessment Result Facility 05-12-2025 Cognitive function Level Of Cons ciousness Awake;Alert;Appropriate;Follow s Commands [facility] Work Phone: Clinical Notes 06-07-2022 to 05-23-2025 Note Date & Type Note Facility 05-23-2025 Discharge summary [facility] 05-23-2025 Radiology Diagnostic study note [facility] Imaging Services [address] [place], [place] [address] Sinus/Facial Bone MR#: [id number] Acct: [id number] Name: EUGENE SALVADOR Rep #: [id number] : 2005 M 19 From: Annabelle Graff MD PCP: Dr. Pooja Ding MD Status: R EG ER Study:Sinus/Facial Bone Date of Exam: Exam# [id number] Ordering Dr: Jane De La Rosa DO PROCEDURE: SINUS/FACIAL BONE 05/23/2025 REASON FOR EXAM: HIT FACE ON TREE, LEFT EYE SWELLING TECHNIQUE: SINUS/FACIAL BONE Coronal and Sagittal reconstruction series were provided. One or more dose reduction techniques were used (e.g., Automated exposure control, adjustment of the mA and/or kV according to patient size, use of iterative reconstruction technique). RADIATION DOSE SUMMARY: CTDlvol: 91 mGy DLP: 1901 mGycm FINDINGS: Normal mandible. Normal mandibular condyles. Normal nasal bones. Normal zygomatic arches. Medial and lateral orbital neri maintained. No sinonasal air-fluid levels. No mandibular or maxillary fracture. Orbital rim maintained. Orbital floor intact. Mild sphenoid and maxillary mucosal thickening. Right-sided mandibular molar dental disease. No orbital injury is noted. CT/Sinus/Facial Bone IMPRESSION: Negative for maxillofacial fracture. Specific attention to the left orbit. Reading Location: [facility] CC: Dr. Pooja Ding MD; Dr. Aidan De La Rosa DO ~ Anesthetist: Signed [facility] 05-23-2025 Radiology Diagnostic study note [facility] Imaging Services [address] [place] [id number] Spine Cervical without Contras MR#: [id number] Acct: [id number] Name: EUGENE SALVADOR Rep #: [id number] : 2005 M 19 From: Annabelle Graff MD PCP: Dr. Pooja Ding MD Status: R EG ER Study:Spine Cervical without Contras Date of Exam: 05/23/25 Exam# [id number] Ordering Dr: Jane De La Rosa DO PROCEDURE: SPINE CERVICAL WITHOUT CONTRAS 05/23/2025 REASON FOR EXAM: FALL TECHNIQUE: SPINE CERVICAL WITHOUT CONTRAS Coronal and Sagittal reconstruction series were provided. One or more dose reduction techniques were used (e.g., Automated exposure control, adjustment of the mA and/or kV according to patient size, use of iterative reconstruction technique. FINDINGS: Normal vertebral body height. Normal odontoid process. No compression deformity. No subluxation. No destructive osseous change. No facet malalignment. Pedicles and lamina maintained. CT/Spine Cervical without Contras IMPRESSION: CT cervical spine within normal limits Reading Location: [facility] CC: Dr. Pooja Ding MD; Dr. Aidan De La Rosa DO ~ Anesthetist: Signed [facility] 05-23-2025 Radiology Diagnostic study note [facility] Imaging Services [address] [place] [address] Brain/Head without Contrast MR#: [id number] Acct: [id number] Name: EUGENE SALVADOR Rep #: [id number] : 2005 M 19 From: Annabelle Graff MD PCP: Dr. Pooja Ding MD Status: R ER Study:Brain/Head without Contrast Date of Exa m: 05/23/25 Exam# [id number] Ordering Dr: Jane De La Rosa DO PROCEDURE: BRAIN/HEAD WITHOUT CONTRAST 05/23/2025 REASON FOR EXAM: HIT HEAD TECHNIQUE: BRAIN/HEAD WITHOUT CONTRAST Coronal and Sagittal reconstruction series were provided. One or more dose reduction techniques were used (e.g., Automated exposure control, adjustment of the mA and/or kV according to patient size, use of iterative reconstruction technique. COMPARISON: 08/12/2018 FINDINGS: No intracranial mass, hemorrhage or edema. Sinuses are clear. Bony calvarium intact. CT/Brain/Head without Contrast IMPRESSION: No acute abnormality Reading Location: [facility] CC: Dr. Pooja Ding MD; Dr. Aidan De La Rosa DO ~ Anesthetist: Signed [facility] 05-23-2025 Discharge summary Note Date/Time May 23, 2025 10:19pm [facility] Medical Records Department [address] [place] [address] Emergency Department Summary 05/23/25 MR#: [id number] Acct: [id number] Name: EUGENE SALVADOR Rep #:[id number] : 2005 19 From: Aidan De La Rosa DO PCP: Dr. Pooja Ding MD Status:R EG ER Location: ED HPI History of Present Illness Chief Complaint: Fall Narrative Narrative: Patient is 19-year-old male past medical history asthma who presented to the emergency department chief complaint of left-sided face pain. Patient states that earlier today around 3:30 in the afternoon he was in a tree when he slippedand fell and hit another portion of the tree on the way down and hit his left side of his face. He states that he does have a headache he tried take Tylenol and notes that he does have some swelling to the left eyebrow region. Patient notes that he has not vomited since the event. Patient states that his last tetanus shot was updated approximately 2 years ago. [facility] Medical History Asthma Home Medications ?Medication ?Instructions ?Recorded ?Last Taken ?Type albuterol sulfate 2.5 mg/3 mL 2.5 mg inhalation Q6H Unknown History (0.083 %) solution for nebulization budesonide 0.25 mg/2 mL suspension 0.25 mg inhalation BID 10/03/21 Unknown History for nebulization (Pulmicort) cetirizine 10 mg tablet (Zyrtec) 10 mg PO DAILY Unknown History albuterol sulfate 2.5 mg/3 mL 2.5 mg (3 mL) inhalation Q4H PRN 05/12/25 Unknown Rx (0.083 %) solution for nebulization #25 vials Allergy/AdvReac Type Severity Reaction Status Date / Time No Known Allergies Allergy Verified 05/23/25 20:46 Surgical History History of tonsillectomy Social History Smoking Status: Current every day smoker tobacco type: e-cigarettes substance use type: does not use ROS ROS ED ROS Narrative Constitutional: Complaint headache as noted above denies any lightheadedness or dizziness Eyes: Denies double vision Cardiovascular: Denies chest pain Respiratory: Denies shortness of breath Abdomen: Denies abdominal pain nausea vomit diarrhea : Denies any urinary symptoms Neurological: Denies any numbness, wheeze, tingling Musculoskeletal: States that he does have some right hip pain from hitting it aswell but states that he has been able to walk without any difficulty Skin: Denies any rashes or lesions complains of some swelling to the left eye region EXAM Physical Exam Narrative Exam Narrative: General: Patient was lying in bed resting comfortably did not appear to be acutedistress Head: Atraumatic, normocephalic Eyes, ears, nose, throat: PERRL bilaterally, EOMI bilateral, no conjunctival injection noted, no raccoon eyes no Torrez sign no nasal septal hematomas noted bilaterally Neck: Soft, supple, trachea midline no tenderness palpation midline cervical spine Cardiovascular: Patient tachycardic with a regular rhythm no murmurs gallops rubs noted Respiratory: Clear to auscultation bilaterally Abdomen: Soft, nondistended, nontender to palpation Musculoskeletal: All bony prominences palpated joints taken through full range of motion no pain elicited Extremities: +5/5 strength noted in the bilateral upper and lower extremities radial pulses +2/4 in the bilateral extremities, no pedal edema exam Neurological: Patient follow commands knew that he was at [facility] year is 2024 Skin: warm, dry, intact, patient has a superficial abrasion noted laterally to his left eyebrow with mild swelling Const Vital Signs: 05/23/25 20:46 05/23/25 21:15 Temperature 97.0 F L Temperature Source Temporal Pulse Rate 125 H Respiratory Rate 16 Respiratory Effort Normal Respiratory Depth Normal Respiratory Pattern Normal Blood Pressure 128/69 H Blood Pressure Mean 88 Pulse Ox 97 Oxygen Delivery Method Room Air Room Air MDM MDM MDM Narrative Medical decision making narrative: Patient is a 19-year-old male who presents to the emergency department with a chief complaint of falling out of a tree hitting his head on the tree with a headache. On the differential diagnosis includes but not limited to epidural hematoma, subdural hematoma,, musculoskeletal strain, facial fracture. Once workup is obtained reviewed he will be reevaluated. Patient CT head and brain without contrast showed no acute intracranial mass hemorrhage or edema. Patient CT cervical spine reviewed showed no acute fracture listhesis. Patient's CT face showed no maxillofacial fracture. On reevaluation patient is feeling better he like to go home at this point time. Patient was vies rotate Tylenol and ibuprofen [id number]. He is encouraged to follow-up with his doctor in outpatient setting return with worsening symptoms or any concerns. He is agreeable to plan all questions turns answered is discharged home in stable condition. Radiography Diagnostic Testing: Clinical Impression(s) from Imaging Studies Brain CT 05/23/25 21:19 IMPRESSION: No acute abnormality Reading [facility] Cervical Spine CT 05/23/25 21:19 IMPRESSION: CT cervical spine within normal limits Reading [facility] Facial/Sinus 05/23/25 21:19 IMPRESSION: Negative for maxillofacial fracture. Specific attention to the left orbit. Reading Location[facility] Discharge Plan Triage Chief Complaint: Fall ED Provider: Aidan De La Rosa Dx/Rx/DC Orders Clinical Impression: Fall, Closed head injury, Eye swelling, left Prescriptions: No Action albuterol sulfate [Ventolin] 2.5 mg /3 mL (0.083 %) Solution For Nebulization 2.5 mg INHALATION Q6H cetirizine [Zyrtec] 10 mg Tablet 10 mg PO DAILY budesonide [Pulmicort] 0.25 mg/2 mL Suspension For Nebulization 0.25 mg INHALATION BID albuterol sulfate 2.5 mg /3 mL (0.083 %) solution for nebulization 2.5 mg inhalation Q4H PRN Qty: 25 0RF Rx Instructions: Use q4 hours and PRN for wheezing Primary Care Provider: Pooja Ding Referrals: Pooja Ding MD [Primary Care Provider] - Activity Restrictions/Additional Instructions: Your CT scans did not show any acute findings. Rotate Tylenol and ibuprofen [id number] when you do this you can take something every 3 hours. Max dose of Tylenol in 24 hours 4000 mg, max dose of ibuprofen 3200 mg in 24 hours. Print Language: Thai Disposition Disposition: Home, Self Care What to do if you have Problems For any increased pain, shortness of breath, bleeding, nausea or vomiting, chestpain, or any unexpected problems, contact your Primary Care Provider. Call [facility] ([phone]) or report to the closest Emergency Room. Call 911 if necessary. 05/23/252218 <Electronically signed by Aidan De La Rosa DO> Cosigner Signature (if applicable): CC: Dr. Pooja Ding MD ~ Signed [facility] Work Phone: 1(266) 207-180707-15-2025 Discharge summary [facility] Medical Records Department [address] [place] [address] Emergency Department Summary 05/12/25 MR#: [id number] Acct: [id number] Name: EUGENE SALVADOR Rep #:[id number] : 2005 19 From: Johan chong DO PCP: Dr. Pooja Ding MD Status:R EG ER Location: ED HPI History of Present Illness Chief Complaint: Cold Sx Narrative Narrative: Chief complaint and HPI: Cold-like symptoms. 19-year-old male with past medicalhistory of asthma presents for evaluation of cold-like symptoms. Patient statesover the past several days he has had a cough, runny nose, sore throat, body aches. States that he has been feeling some chest tightness thathe gets with his asthma. States he has [...] intact Psych: Cooperative, appropriate mood and affect [facility] Medical History Asthma Home Medications ?Medication ?Instructions [...] gets with his asthma. States he has beenusing hisalbuterol inhaler however ran out of his [...] Triage Chief Complaint: Cold Sx ED Provider: Joahn Acevedo Dx/Rx/DC Orders Prescriptions: No Action albuterol [...] MD [Primary Care Provider] - Print Language: Thai What to do if you have Problems For any increased pain, shortness of breath, bleeding, nausea or vomiting, chestpain, or any unexpected problems, contact your Primary Care Provider. Call [employer] [facility] ([phone]) or report tothe closest Emergency Room. Call 911 if necessary. 05/12/25 1145 Cosigner Signature (if applicable): CC: Dr. Pooja Ding MD ~ Signed [facility]07-15-2025 Radiology Diagnostic study note [facility] Imaging Services [address] [place] [address] Chest PA and Lateral MR#: [id number] Acct: [id number] Name: EUGENE SALVADOR Rep #: [id number] : 2005 M 19 From: Zuleyka Jensen MD PCP: Dr. Pooja Ding MD Status: R EG ER Study:Chest PA and Lateral Date of Exam: 05/12/25 Exam# [id number] Ordering Dr: Johan Garland DO EXAM: XR Chest, 2 Views CLINICAL INDICATION: COUGH TECHNIQUE: Frontal and lateral views of the chest. COMPARISON: No relevant prior studies available. FINDINGS: LUNGS AND PLEURAL SPACES: Unremarkable. No consolidation. No pneumothorax. HEART: Unremarkable. No cardiomegaly. MEDIASTINUM: Unremarkable. Normal mediastinal contour. BONES/JOINTS: Unremarkable. No acute fracture. RAD/Chest PA and Lateral IMPRESSION: No acute cardiopulmonary process. Reading Location[facility] CC: Dr. Johan Acevedo DO; Dr. Pooja Ding MD ~ Anesthetist: Signed [facility]07-12-2025 NoteHNO ID: [id number] Author: DOLORES SOUZA PA Service: ? Author Type: Physician Manager Data Center Type: Progress Notes Filed: 05/09/2025 15:17 Note Text: URGENT CARE [facility] Eugene Salvador is a 19 year old [...] saltwater gargles, and throat lozenges. Recording using Actifio software for draft documentation of the visit was discussed with the patient/authorized volunteer patient representative; all questions welcomed and answered. Patient/authorized volunteer patient representative agreed to proceed Diagnosis and treatment plan [...] was discharged. OTC Medications were advised: [facility]ylen[facility]rin [facility] History of Present illness Narrative* Dolores Souza PA - 05/09/2025 3:14 PM EDT [facility]ARE [facility] Mark Eugene Salvador is a 19 year old [...] saltwater gargles, and throat lozenges. Recording using Actifio software for draft documentation of the visit was discussed with the patient/authorized volunteer patient representative; all questions welcomed and answered. Patient/authorized volunteer patient representative agreed to proceed Diagnosis and treatment plan [...] were advised: Tylenol/Motrin Procedures [facility]04[facility] Telephone encounter Note * Telephone Encounter - Chavo Hendrickson LPN - 02/24/2025 12:00 PM EDT Left message regarding medication change on pt's vm. Chavo Hendrickson LPN [facility]04-29-2025 Miscellaneous Notes* Telephone Encounter - Chavo Hendrickson LPN - 02/24/2025 12:00 PM EDT Left message regarding medication change on pt's vm. Chavo Hendrickson LPN * Telephone Encounter - Chavo Hendrickson LPN - 02/12/2025 11:25 AM EDT Left message for pt to contact office regarding Zyrtec refill. Chavo Hendrickson LPN * Telephone Encounter - Dori Black PA-C - 02/12/2025 11:13 AM EDT Let patient know that the chewable is over very expensive and insurance won't cover. I will send inregular tablet. He requested the chewable, so just wanted to let him know. Dori Black PA-C * Telephone Encounter - Chavo Hendrickson LPN - 02/12/2025 11:06 AM EDT Please see message from pharmacy needing regular tablets. Chavo Hendrickson LPN documented in this encounterC[facility]04-18-2025 Telephone encounter Note * Telephone Encounter - Sherin Tucker RN - 02/13/2025 9:32 AM EDT PATIENT NOTIFIED OF INFORMATION [facility]04-18-2025 Miscellaneous Notes* Telephone Encounter - Sherin Tucker RN - 02/13/2025 9:32 AM EDT PATIENT NOTIFIED OF INFORMATION * Telephone Encounter - Carisa Gonzales MA - 02/13/2025 9:25 AM EDT Left message for patient to contact office. Carisa Gonzales MA' * Telephone Encounter - Dori Black PA-C - 02/13/2025 9:08 AM EDT Let patient know that all his labs are normal. documented in this encounterCleveland [facility]04-18-2025 Telephone encounter Note * Telephone Encounter - Carisa Gonzales MA - 02/13/2025 9:25 AM EDT Left message for patient to contact office. Carisa Gonzales MA' [facility]04-18-2025 Telephone encounter Note* Telephone Encounter - Dori Black PA-C - 02/13/2025 9:08 AM EDT Let patient know that all his labs are normal. [facility]04-17-2025 Telephone encounter Note* Telephone Encounter - Chavo Hendrickson LPN - 02/12/2025 11:25 AM EDT Left message for pt to contact office regarding Zyrtec refill. Chavo Hendrickson LPN [facility]04-17-2025 Telephone encounter Note* Telephone Encounter - Dori Black PA-C -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 protected by the Federal Confidentiality of Alcohol and Drug Abuse Patient Records regulations: The Federal rules restrict any use of the information to criminally investigate or prosecute any alcohol or drug abuse patient.[facility] FoundationIn the event this information is protected by the Federal Confidentiality of Alcohol and Drug Abuse Patient Records regulations: The Federal rules restrict any use of the information to criminally investigate or prosecute any alcohol or drug abuse patient.[facility] FoundationIn the event this information is protected by the Federal Confidentiality of Alcohol and Drug Abuse Patient Records regulations: The Federal rules restrict any use of the information to criminally investigate or prosecute any alcohol or drug abuse patient.[facility] Reason for Visit (unrecogniz ed section and [...] days Specialty Diagnoses / Procedures Referred By Murtaza t Referred To Contact [facility] Diagnoses Cough, chest pain, SOB, fatigue, chest congestion X 2 days ; Patient has asthma Procedures EST SAME DAY [facility] [address] [place] [address] Referral ID Status Reason Start Date Expiration Date Visits Requested Visits Authorized [id number] Outside PCP Financial Clearance Required - Self [...] Care Teams (unrecognized sec tion and content) Admitting Office Escort Relationship Specialty Start Date End Date René Baker MD [address] [place] [address] PCP - General Family Practice 02/18/19 Admitting Office Escort Relationship Specialty Start Date End Date René Baker MD [address] [place] [address] PCP - General Family Medicine 02/18/19 Admitting Office Escort Relationship Specialty Start Date End Date René Baker MD [address] [place] [address] PCP - General Family Medicine 02/18/19 Admitting Office Escort Relationship Specialty Start Date End Date René Baker MD [address] [place] [address] PCP - General Family Medicine 02/18/19 Admitting Office Escort Relationship Specialty Start Date End Date René Baker MD [address] [place] [address] PCP - General Family Medicine 02/18/19 Admitting Office Escort Relationship Specialty Start Date End Date René Baker MD [address] [place] [address] PCP - General Family Medicine 02/18/19 Admitting Office Escort Relationship Specialty Start Date End Date René Baker MD [address] [place] [address] PCP - General Family Medicine 02/18/19 Team Status: Active Member Role Status Dates Dr. Pooja Ding MD Family Provider Active Dr. Pooja Ding MD Primary Care Provider Active Team Status: Inactive Member Role Status Dates Dr. Pooja Ding MD Primary Care Provider Active Dr. Jimmy Jensen DO Emergency Provider Active Admitting Office Escort Relationship Specialty Start Date End Date René Baker MD [address] [place] [address] PCP - General Family Medicine 02/18/19 Admitting Office Escort Relationship Specialty Start [place] [address] [place] [address] PCP - General Family Medicine 02/18/19 Admitting Office Escort Relationship Specialty Start Date End Date René Baker MD [address] [place] [address] PCP - General Family Medicine 02/18/19 Admitting Office Escort Relationship Specialty Start Date End Date René Baker MD [address] [place] [address] PCP - General Family Medicine 02/18/19 Yenni Ramey APRN.CVICU NURSE [address] [place] [address] [facility] Family Medicine 10/04/24 Dori Black PA-C [address] [place] [address] [facility] Family Medicine 10/04/24 Admitting Office Escort Relationship Specialty Start Date End Date René Baker MD [address] [place] [address] PCP - General Family Medicine 02/18/19 Yenni Ramey APRN.CVICU NURSE [address] [place] [address] [facility] Family Medicine 10/04/24 Dori Black PA-C [address] [place] [address] [facility] Family Medicine 10/04/24 Admitting Office Escort Relationship Specialty Start Date End Date René Baker MD [address] [place] [address] PCP - General Family Medicine 02/18/19 Yenni Ramey, MOVER HELPER.CVICU NURSE [address] [place] [address] [facility] Family Medicine 10/04/24 Dori Black PA-C [address] [place] [address] [facility] Family Medicine 10/04/24 Admitting Office Escort Relationship Specialty Start Date End Date René Baker MD [address] [place] [address] PCP - General Family Medicine 02/18/19 Yenni Ramey, MOVER HELPER.CVICU NURSE [address] [place] [address] [facility] Family Medicine 10/04/24 Dori Black PA-C [address] [place] [address] [facility] Family Medicine 10/04/24 Admitting Office Escort Relationship Specialty Start Date End Date René Baker MD [address] [place] [address] PCP - General Family Medicine 02/18/19 Yenni Ramey, MOVER HELPER.CVICU NURSE [address] [place] [address] [facility] Family Medicine 10/04/24 Dori Black PA-C [address] [place] [address] [facility] Family Medicine 10/04/24 Admitting Office Escort Relationship Specialty Start Date End Date René Baker MD [address] [place] [address] PCP - General Family Medicine 02/18/19 Yenni Ramey APRN.CVICU NURSE [address] [place] [address] [facility] Family Medicine 10/04/24 Dori Black PA-C [address] [place] [address] [facility] Family Medicine 10/04/24 Admitting Office Escort Relationship Specialty Start Date End Date René Baker MD [address] [place] [address] PCP - General Family Medicine 02/18/19 Yenni Ramey APRN.CVICU NURSE [address] [place] [address] [facility] Family Medicine 10/04/24 Dori Black PA-C [address] [place] [address] Plasma [facility] Family Medicine 10/04/24 Admitting Office Escort Relationship Specialty Start Date End Date René Baker MD [address] [place] [address] PCP - General Family Medicine 02/18/19 Yenni Ramey APRN.CVICU NURSE [address] [place] [address] Plasma Processor Family Medicine 10/04/24 Dori Black PA-C [address] [place] [address] [facility] 10/04/24 Admitting Office Escort Relationship Specialty Start Date End Date René Baker MD [address] [place], [place] [id number] PCP - General Family Medicine 02/18/19 Yenni Ramey APRN.CVICU NURSE [address] [place], [place] [id number] [facility] 03/30/25 Dori Black PA-C [address] [place], [place] [id number] [facility] 03/30/25 Team Status: Active Member Role/Relationship Status Dates Dr. Pooja Ding MD Primary Care Provider Active Team Status: Inactive Member Role/Relationship Status Dates Dr. Pooja Ding MD Primary Care Provider Active Start: May 12, 2025 End: May 12, 2025 Dr. Johan Acevedo DO Emergency Provider Activ e Start: May 12, 2025 End: May 12, 2025 Team Status: Inactive Member Role/Relationship Status Dates Dr. Pooja Ding MD Primary Care Provider Active Start: May 12, 2025 End: May 12, 2025 Dr. Johan Acevedo DO Attending Provider Activ e Start: May 12, 2025 End: May 12, 2025 Dr. Johan Acevedo DO Emergency Provider Activ e Start: May 12, 2025 End: May 12, 2025 Team Status: Inactive Member Role/Relationship Status Dates Dr. Pooja Ding MD Primary Care Provider Active Start: May 23, 2025 End: May 23, 2025 Dr. Aidan De La Rosa DO Emergency Provider Active Start: May 23, 2025 End: May 23, 2025 FOR RECORDS PERTAINING TO PATIENTS WHO [...] BE BASED ON THE PRIMARY CLINICAL RECORDS. [email or web address] [facility]. provides no warranty or guarantee of the accuracy or completeness of information in this document.
[2025-08-14 22:38] LABS: Mucous, Urine 0 SEEN /hpf (<or=2+)
[2025-08-14 22:57] LABS: Color, Urine Straw (Yellow); Glucose, Dipstick Normal (Normal); Ketone-Dipstick Negative (Negative); Leukocyte Esterase-Dipstick Negative /ul (Negative); Nitrite-Dipstick Negative (Negative); Occult Blood-Urine Negative /ul (Negative); Protein-Dipstick Negative (Negative); Specific Gravity, Urine 1.010 (1.002-1.030); Urine Bilirubin Dipstick Negative (Negative)
[2025-08-14 23:12] LABS: Red Blood Cells-Urine 0-5 SEEN /hpf (0-5); Squamous Epithelial Cells - UA 0-5 SEEN /hpf (0-5)
[2025-08-14 23:24] VITALS: BP 108/79; PULSE 77; RESP 18; O2SAT 99
[2025-08-15] VITALS: BP 106/72; PULSE 85; RESP 16; TEMP 36.8; O2SAT 100
== END 2025-08-15 00:15 | disposition home or self-care (01) ==
PROVIDERS: Emergency Provider Emergency Medicine; Visit Provider Emergency Medicine
DX: N45.1 Epididymitis (principal); Z87.891 Personal history of nicotine dependence; N50.811 Right testicular pain; J45.909 Unspecified asthma, uncomplicated; Z79.51 Long term (current) use of inhaled steroids
CPT/HCPCS: 76870; 81001; 93976; 99284